=== PATIENT | male | born 1955 | race Caucasian/White ===

== ENCOUNTER 2016-07-10 10:36 | Emergency (ER) | payer OTHER, MEDICARE ==
[~2016-07-10] VITALS: Ht 165.1 cm; Wt 72.6 kg
[~2016-07-10 10:36] MED LIST: ABILIFY30 M1 PO; ANAFRANIL25 MG PO; AUGMENTIN 875 M1 TAB PO; CHILDREN'S ASPI81 M1 PO; CITRUCEL PO; CLOMIPRAMINE HC75 M1 PO; CLONAZEPAM2 M2 PO; COREG12.5 M1 PO; DAILY MULTIPLE1 EACH PO; DEPAKOTE ER500 M1 PO; DIGOXIN125 MCG PO; LEVAQUIN500 MG PO; PREDNISONE20 M1 PO; PRINIVIL5 M1 PO; PROTONIX20 M1 PO; RANITIDINE HCL300 M2 PO; SENNA-TIME S T1 EACH PO; ZOFRAN ODT4 MG PO
[2016-07-10 10:47] VITALS: BP 130/62
--- NOTE | 2016-07-10 10:50 | ED GENERAL ADULT ---
History of Present Illness General Chief Complaint: General Adult Stated Complaint: PT GIVEN WRONG AMOUNT OF MEDS Source: friend (QU[employer]Y SUPERVISOR [employer]) Exam Limitations: no limitations Vital Signs & Intake/Output Vital Signs & Intake/Output Vital Signs Date Time Temp Pulse Resp B/P Pulse O2 O2 Flow FiO2 Ox Delivery Rate 07/10 1103 Room Air 07/10 1047 95.8 75 20 130/62 98 Room Air Allergies Coded Allergies: Haemophilus B polysaccharide conj w/tetanus toxoid (From TRIHIBIT) (UNKNOWN ) diphtheria toxoid,adsorbed (UNKNOWN 08/10/15) diphtheria,pertussis (acellular),te (From TRIHIBIT) (UNKNOWN 08/10/15) tetanus and diphtheria toxoids (From DECAVAC (PF)) (UNKNOWN 08/10/15) tetanus toxoid, adsorbed (UNKNOWN 08/10/15) Reconcile Medications Aripiprazole (Abilify) 30 MG TABLET 1 TAB PO QAM MENTAL HEALTH (Reported) Aspirin (Children's Aspirin) 81 MG TAB.CHEW 1 TAB PO DAILY HEART HEALTH ( Reported) Carvedilol (Coreg) 12.5 MG TABLET 1 TAB PO BID HEART (Reported) Clomipramine (Anafranil 25MG) 25 MG CAPSULE 1 CAP PO TID MENTAL HEALTH ( Reported) CLOMIPRAMINE HCL (Clomipramine HCl) 75 MG CAPSULE 1 CAP PO QPM MENTAL HEALTH (Reported) Clonazepam 2 MG TABLET 1 TAB PO TID ANXIETY (Reported) Clonazepam 2 MG TAB 1 TAB PO DAILY ANXIETY (Reported) Digoxin (Digox) 125 MCG TABLET 1 TAB PO Monday HEART (Reported) Divalproex Sodium (Depakote) 500 MG TCP 2 TAB PO BID PSYCH (Reported) Lisinopril (Prinivil) 5 MG TABLET 0.5 TAB PO DAILY BP (Reported) Methylcellulose (Citrucel) 2 GM/Dose PDR 1 POW PO DAILY CONSTIPATION Multivitamin and Grofysni633 (Daily Multiple Vitamins W/Iron) 1 TAB TAB 1 TAB PO DAILY SUPPLEMENT (Reported) Pantoprazole Sodium (Protonix) 20 MG TABLET.DR 1 TAB PO DAILY GI (Reported) Prednisone 20 MG TABLET 1 TAB PO D ANGIOEDEMA SENNOSIDES/DOCUSATE SODIUM (Senna-Time S Tablet) 50 MG/8.6 MG TAB 2 TAB PO BID CONSTIPATION (Reported) Triage Note: PER RESIDENTAL INSTRUCTOR, PT WAS GIVEN AN EXTRA DOSE OF KLONAZEPAN 2MG LAST PM. SENT FOR EVLAUATION, PMH: MR. TRES MANZANARES Triage Nurses Notes Reviewed? yes Onset: Abrupt Duration: better, resolved prior to arrival, 22 HOURS AGO Timing: remote history Injury Environment: home Severity: mild Severity Numbers: 1 No Modifying Factors: none Associated Symptoms: DENIES HPI: This is a 60-year-old male with history of MR who presents to emergency room for evaluation with his director pharmaceutical after the patient was found this morning to have been given an extra dose of his clonazepam 2 mg yesterday afternoon. The patient takes clonazepam 2 mg 3 times a day, and his director pharmaceutical states that he was medicated with his daily dose at around 1 PM yesterday however is given a additional dose at around 3 PM the same day. His director pharmaceutical states he's been acting his normal self and noticed the air this morning when giving him his telemetry dose at 10 AM. There is been no change in his baseline mental status, the patient has no complaints. There are no modifying factors or associated symptoms otherwise (DANO BANKS) Past History Travel History Traveled to [place] past 21 day No ( ) Medical History Any Pertinent Medical History? see below for history Neurological: MR ARGUELLO: GLENNA CHRONIC GINGIVITIS Cardiovascular: CHF, hypertension, LBBB Respiratory: NONE Gastrointestinal: constipation, GERD Hepatic: NONE Renal: NONE Psychiatric: anxiety, psychosis, AUTISM Blood Disorders: anemia Surgical History Surgical History: non-contributory Psychosocial History Who do you live with Paid Attentent Services at Home None, patient lives at custodial What is your primary language Montene[place]in Tobacco Use: Never used ETOH Use: denies use Family History Hx Contributory? No (DANO BANKS) Review of Systems Review of Systems Constitutional: Reports: see HPI. All Other Systems: Reviewed and Negative Comments Review of systems: See HPI, All other systems negative. Constitutional, no chills no fever, no malaise no weight loss HEENT: No visual changes no sore throat no congestion Cardiovascular: No chest pain , no palpitation Skin, no rashes, no change in skin Respiratory: No dyspnea no cough no sputum GI: No nausea no vomiting, no diarrhea, : No dysuria Muscle skeletal: No joint pain, no joint swelling, no back pain, no neck pain, Neurologic: No numbness no headache Psych: No stress . Heme/endocrine: No bruising no bleeding Immunology: No lymphadenopathy, (DANO BANKS) Physical Exam Physical Exam General Appearance: well developed/nourished, awake Comments: Well-developed well-nourished person in no acute distress HEENT: Normal EENT exam; PERRL, EOMI, HEAD is atraumatic. moist mucous membranes. Neck: Supple, no lymphadenopathy, normal range of motion Back: Nontender, no CVA tenderness. Full range of motion Cardiovascular: Regular rate and rhythms no murmurs Respiratory: No respiratory distress. Patient speaking in full complete sentences. Breath sounds clear to auscultation bilaterally: NO W/R/R Abdomen: Soft, nontender nondistended, no appreciable organomegaly. Normal bowel sounds. No rebound/guarding Extremity: No edema, full range of motion of extremities, normal and equal pulses bilaterally, 5 out of 5 strength noted to bilateral upper and lower extremities Neuro: Alert oriented x3, motor sensory normal, cranial nerves II through XII grossly intact. There were no obvious focal neurologic abnormalities. Skin: No appreciable rash on exposed skin, skin is warm and dry. Psych: Mood and affect is normal, memory and judgment is normal. Core Measures ACS in differential dx? No CVA/TIA Diagnosis: No Severe Sepsis Present: No Septic Shock Present: No (DANO BANKS) Progress Differential Diagnoses I considered the following diagnoses in my evaluation of the patient: Medication administration error, Benzo overdose Plan of Care: Patient is at baseline I advised a follow-up with his private any concerns vitals are stable director pharmaceutical feels comfortable plan I answered all his questions Initial ED EKG: none (DANO BANKS) Departure Departure Time of Disposition: 1054 Disposition: HOME OR SELF CARE Condition: Stable Clinical Impression Primary Impression: Medication administered in error Referrals: ADELINE YANG,NELSON Reyna (PCP/Family) Additional Instructions: Continue giving him his medication as prescribed, follow up with his primary care physician this week, return with any concerns Departure Forms: Customer Survey General Discharge Information (DANO BANKS) PA/SLAT BASKET MAKER Co-Sign Statement Statement: ED Attending supervision documentation- [] I saw and evaluated the patient. I have also reviewed all the pertinent lab results and diagnostic results. I agree with the findings and the plan of care as documented in the PA's/SLAT BASKET MAKER's documentation. [X] I have reviewed the ED Record and agree with the PA's/SLAT BASKET MAKER's documentation. [] Additions or exceptions (if any) to the PAs/SLAT BASKET MAKER's note and plan are summarized below: [] (MARTI YANG,MATTHEW Jacobsen) Critical Care Note Critical Care Note Critical Care Time: non-applicable (FINESSE SÁNCHEZ,DANO)
== END 2016-07-10 11:04 ==
LOC: ERH 10:36 → EDBD 10:40 → ERH 10:40
DX: T42.4X1A Poisoning by benzodiazepines, accidental (unintentional), initial encounter (principal)
CPT/HCPCS: 99282

== ENCOUNTER 2016-08-04 10:45 | Emergency (ER) | payer OTHER, MEDICARE ==
--- NOTE | 2016-08-04 10:56 | ED GENERAL ADULT ---
History of Present Illness General Chief Complaint: Epistaxis/Nasal Foreign Body Stated Complaint: NOSE BLEED Source: home health aides Exam Limitations: unable to give history, confusion, poor historian, physical impairment Vital Signs & Intake/Output Vital Signs & Intake/Output Vital Signs Date Time Temp Pulse Resp B/P Pulse O2 O2 Flow FiO2 Ox Delivery Rate 08/04 1202 97.0 80 18 122/60 99 Room Air Room Air 08/04 1049 96.9 80 16 123/59 99 Room Air Allergies Coded Allergies: Haemophilus B polysaccharide conj w/tetanus toxoid (From TRIHIBIT) (UNKNOWN ) diphtheria toxoid,adsorbed (UNKNOWN 08/10/15) diphtheria,pertussis (acellular),te (From TRIHIBIT) (UNKNOWN 08/10/15) tetanus and diphtheria toxoids (From DECAVAC (PF)) (UNKNOWN 08/10/15) tetanus toxoid, adsorbed (UNKNOWN 08/10/15) Reconcile Medications Aripiprazole (Abilify) 30 MG TABLET 1 TAB PO QAM MENTAL HEALTH (Reported) Aspirin (Children's Aspirin) 81 MG TAB.CHEW 1 TAB PO DAILY HEART HEALTH ( Reported) Carvedilol (Coreg) 12.5 MG TABLET 1 TAB PO BID HEART (Reported) Clomipramine HCl (Anafranil) 25 MG CAPSULE 1 CAP PO TID MENTAL HEALTH ( Reported) Clomipramine HCl 75 MG CAPSULE 1 CAP PO QPM MENTAL HEALTH (Reported) Clonazepam 2 MG TABLET 1 TAB PO TID ANXIETY (Reported) Clonazepam 2 MG TABLET 1 TAB PO DAILY ANXIETY (Reported) Digoxin 125 MCG TABLET 1 TAB PO Monday HEART (Reported) Divalproex Sodium (Depakote ER) 500 MG TAB.ER.24H 2 TAB PO BID MENTAL HEALTH (Reported) Lisinopril (Prinivil) 5 MG TABLET 0.5 TAB PO DAILY BP (Reported) Methylcellulose (Citrucel) 479 GM POWDER 2 GM PO DAILY CONSTIPATION (Reported ) Multivitamin (Daily Multiple Vitamin) 1 EACH TABLET 1 TAB PO DAILY SUPPLEMENT (Reported) Pantoprazole Sodium (Protonix) 20 MG TABLET.DR 1 TAB PO DAILY GI (Reported) Sennosides/Docusate Sodium (Senna-Time S Tablet) 8.6 MG-50 MG TABLET 2 TAB PO BID CONSTIPATION (Reported) Triage Note: PT BROUGHT IN BY AMBULANCE FROM [facility] WITH AID. PT HAS BEEN PUNCHING HIMSELF AT IN THE FACE AND HAD A NOSE BLEED. BLEEDING CONTROLLED AT THIS TIME. PT'S BEHAVIOR AT BASELINE I Triage Nurses Notes Reviewed? yes Onset: Abrupt Duration: hour(s): Timing: recent history HPI: 08/04/16 60-year-old man with a history of cognitive impairment presents to the emergency Department with self-inflicted nasal trauma. The patient repeatedly tends to hit himself in the nose. The onset of the symptoms were abrupt, the duration was just today, the severity was significant as his symptoms required him to come to the emergency department for care. On physical examination he has bilateral nasal septal abrasions, no bony tenderness. Afrin was inserted and bacitracin was put into the nose. He has no other injuries. Past History Travel History Traveled to [place] past 21 day Yes Medical History Any Pertinent Medical History? 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 No Review of Systems Review of Systems Constitutional: Denies: fever. EENTM: Reports: epistaxis. Respiratory: Denies: short of breath. Cardiovascular: Denies: chest pain. GI: Reports: no symptoms. Genitourinary: Reports: no symptoms. Musculoskeletal: Reports: no symptoms. Skin: Reports: no symptoms. Neurological/Psychological: Reports: confusion. Hematologic/Endocrine: Reports: bleeding. Physical Exam Physical Exam General Appearance: awake, anxious, mild distress Head: atraumatic Eyes: Bilateral: abnormal EOM (blind). Ears, Nose, Throat: bilateral nasal septal abrasions, no active bleeding, no septal hematoma Neck: normal inspection, supple Respiratory: no respiratory distress Cardiovascular: regular rate/rhythm Gastrointestinal: non-tender Back: decreased range of motion Extremities: normal inspection Neurologic/Psych: alert Skin: intact, normal color, warm/dry Core Measures ACS in differential dx? No CVA/TIA Diagnosis: No Severe Sepsis Present: No Septic Shock Present: No Progress Differential Diagnoses I considered the following diagnoses in my evaluation of the patient: [Septal hematoma, nasal fracture, nasal abrasion, coagulopathy] Plan of Care: Follow-up with ENT in 7 days. Bacitracin to both nares daily for 3 days. Initial ED EKG: none Departure Departure Disposition: HOME OR SELF CARE Condition: Stable Clinical Impression Primary Impression: Epistaxis Referrals: ADELINE YANG,NELSON Reyna (PCP/Family) Departure Forms: Customer Survey General Discharge Information Critical Care Note Critical Care Note Critical Care Time: non-applicable
[2016-08-04] MEDS ORDERED: CITRUCEL479 GM PO (11:52)
[2016-08-04 12:02] VITALS: BP 122/60
== END 2016-08-04 12:09 ==
LOC: ERH 10:45
DX: R04.0 Epistaxis (principal)

== ENCOUNTER 2017-07-10 11:29 | Emergency (ER) | payer OTHER, MEDICARE ==
[~2017-07-10] VITALS: Ht 160 cm; Wt 59.0 kg
[~2017-07-10 11:29] MED LIST changes: +A AND D OINTM42.5 GM TOP; +ACETAMINOPHEN325 M2 PO; +AMOXICILLIN500 M2 PO; +ATIVAN1 M1 PO; +BACITRACIN28.4 GM TOP; +CALDESENE BABY142 GM TOP; +CITRUCEL479 GM PO; +CLONAZEPAM1 M2 PO; +DEBROX15 ML OTIC; +DIPHENHYDRAMINE25 M4 PO; +DIPHENHYDRAMINE50 M1 PO; +DULCOLAX10 M1 RC; +ENSURE LIQUID237 ML PO; +HYDROCORTISO453.6 G1 TOP; +IBUPROFEN200 M3 PO; +LEVAQUIN500 M1 PO; +LOPERAMIDE2 M2 PO; +LOTRIMIN AF12 GM TOP; +MILK OF MA400 MG/52 PO; +MIRALAX17 G1 PO; +MULTIVITAMINS1 EACH PO; +PERIOGARD473 ML PO; +ROBAFEN-DM SYR118 ML PO; +SUDOGEST30 MG PO; +[UNRECOGNIZED DRUG - OTHER] PO; +[UNRECOGNIZED DRUG - OTHER] TOP
--- NOTE | 2017-07-10 13:10 | ED THROAT/DENTAL COMPLAINT ---
History of Present Illness General Chief Complaint: General Adult Stated Complaint: SWELLING OF LOWER LIP Source: patient Exam Limitations: no limitations Vital Signs & Intake/Output Vital Signs & Intake/Output Vital Signs Date Time Temp Pulse Resp B/P B/P Pulse O2 O2 Flow FiO2 Mean Ox Delivery Rate 07/10 1517 98.3 84 19 122/85 100 Room Air 07/10 1450 78 98 Room Air 07/10 1309 97.1 80 20 92/78 97 Room Air 07/10 1238 Room Air Room Air 07/10 1156 97.0 92 20 94 Room Air Allergies Coded Allergies: Haemophilus B polysaccharide conj w/tetanus toxoid (From TRIYovigoIT) (UNKNOWN ) diphtheria toxoid,adsorbed (UNKNOWN 04/01/17) diphtheria,pertussis (acellular),te (From TRIHIBIT) (UNKNOWN 04/01/17) tetanus and diphtheria toxoids (From DECAVAC (PF)) (UNKNOWN 04/01/17) tetanus toxoid, adsorbed (UNKNOWN 04/01/17) Uncoded Allergies: SURE DEODERANT (PER 04/01/17) Reconcile Medications Acetaminophen 325 MG TABLET 2 TAB PO Q6H PRN PAIN/TEMP 100.5-102 (Reported) Amoxicillin 500 MG CAPSULE 4 CAP PO AD 1 HR PRIOR TO DENTAL APPT. (Reported) Aripiprazole (Abilify) 30 MG TABLET 1 TAB PO DAILY MENTAL HEALTH (Reported) Aspirin (Children's Aspirin) 81 MG TAB.CHEW 1 TAB PO DAILY HEART HEALTH ( Reported) Bacitracin 500 UNIT/GRAM OINT...G. 1 NURA TOP BID PRN WOUND UNTIL DRY/SCABBED (Reported) apply to affected area(s) Bisacodyl (Dulcolax) 10 MG SUPP.RECT 1 SUP RC QPM 4TH DAY NO BM (Reported) Carbamide Peroxide (Debrox) 6.5 % DROPS 6 DROP OTIC BID LEFT EAR (Reported) Carvedilol (Coreg) 12.5 MG TABLET 1 TAB PO BID HEART (Reported) Chlorhexidine Gluconate (Periogard) 0.12 % MOUTHWASH 15 ML PO BID GUMS ( Reported) Clomipramine HCl (Anafranil) 25 MG CAPSULE 1 CAP PO TID MENTAL HEALTH ( Reported) Clomipramine HCl 75 MG CAPSULE 1 CAP PO QHS MENTAL HEALTH (Reported) Clonazepam 1 MG TABLET 1 TAB PO Q6H UNKNOWN (Reported) Clotrimazole (Lotrimin AF) 1 % CREAM..G. 1 NURA TOP BID PRN ITCHING/PEELING/ REDDENED AREA (Reported) apply to affected area(s) Gila Tar (T-Gel) 0.5 % SHAMPOO 1 NURA TOP DAILY SCALP (Reported) Digoxin 125 MCG TABLET 1 TAB PO Monday HEART (Reported) Diphenhydramine HCl 50 MG CAPSULE 1 CAP PO Q4H PRN CONGESTION & SNIFFLES ( Reported) Diphenhydramine HCl 25 MG CAPSULE 1 CAP PO Q4H PRN RUNNY NOSE, SNEEZING ( Reported) diphenhydrAMINE HCl (Benadryl) 25 MG CAP 1 CAP PO TID ALLERGIC REACTION Divalproex Sodium (Depakote ER) 500 MG TAB.ER.24H 2 TAB PO BID MENTAL HEALTH (Reported) Famotidine (Pepcid) 20 MG TABLET 1 TAB PO DAILY ALLERGIC REACTION Guaifenesin/Dextromethorphan (Robafen-Dm Syrup) 100 MG-10 MG/5 ML SYRUP 10 ML PO Q4 PRN COUGH (Reported) Hydrocortisone 1 % CREAM..G. 1 NURA TOP BID PRN ITCHY SMALL RASH/BUG BITES ( Reported) apply to affected area(s) Ibuprofen 200 MG CAPSULE 2 TAB PO Q6H PRN MUSCULAR/JOINT PAIN/TEMP>102 ( Reported) Lactose-Reduced Food (Ensure Liquid) 237 ML LIQUID 1 CAN PO DAILY SUPPLEMENT (Reported) Lisinopril (Prinivil) 5 MG TABLET 1 TAB PO DAILY BP (Reported) Loperamide HCl (Loperamide) 2 MG CAPSULE 2 CAP PO PRN DIARRHEA (Reported) LORazepam (Ativan) 1 MG TAB 1-2 TAB PO AD PRN 1 HR PRIOR TO PROCEDURE ( Reported) MAY REPEAT DOSE IN 1 HR PRN FOR AGITATION Losartan Potassium (Cozaar) 25 MG TABLET 1 TAB PO DAILY HYPERTENSION Magnesium Hydroxide (Milk Of Magnesia) 400 MG/5 ML ORAL.SUSP 30 ML PO QPM 2ND DAY NO BM (Reported) Methylcellulose (Citrucel) 479 GM POWDER 1 TBSP PO BID CONSTIPATION (Reported ) Multivitamin W/Iron, Minerals (Multivitamins With Iron) 1 EACH TAB.CHEW 1 TAB PO DAILY SUPPLEMENT (Reported) Pantoprazole Sodium (Protonix) 20 MG TABLET.DR 1 TAB PO DAILY GI (Reported) Polyethylene Glycol 3350 (Miralax) 17 GRAM POWD.PACK 1 PAC PO QPM 3RD DAY NO BM (Reported) dissolve in water Prednisone 10 MG TABLET 1 TAB PO BID ALLERGIC REACTION Pseudoephedrine HCl (Sudogest) 30 MG TABLET 1 TAB PO Q4H PRN NASAL CONGESTION (Reported) Sennosides/Docusate Sodium (Senna-Time S Tablet) 8.6 MG-50 MG TABLET 2 TAB PO BID CONSTIPATION (Reported) Stannous Fluoride (Gel-Jayesh) 0.4 % GEL..GRAM. 1 NURA PO BID TEETH (Reported) Vits A and D/White Pet/Lanolin (A and D Ointment) 42.5 GM OINT...G. 1 NURA TOP BID CHAFED SKIN (Reported) MIX WITH CALDESCENE, EQUAL PARTS Zinc Oxide/[place] Starch (Caldesene Baby Powder) (Unknown Strength) POWDER 1 NURA TOP BID PRN MINOR RASH (Reported) Triage Note: SWELLING OF THE LOWER LIP TODAY. WENT TO DAY [facility]GRAM AND HE WAS FINE, SHORTLY AFTER [facility] CALLED D/T LOWER LIP SWELLING. Triage Nurses Notes Reviewed? yes Onset: Gradual Duration: getting worse Timing: single episode today Severity: moderate Severity Numbers: 5 HPI: Patient is a 61-year-old male with past medical history of MR hypertension and blindness who presents emergency room with caregiver for concern since 9 AM after medications were administered including lisinopril of lower lip gradually worsening swelling caregiver states that symptoms have occurred in the past patient was seen at ER and was given medications to resolve symptoms. No respiratory distress noted by caregivers or tongue swelling or itching History is limited due to patient's past medical history (Lico Avila) Past History Travel History Traveled to [place] past 21 day No Medical History Any Pertinent Medical History? see below for history Neurological: MR EENT: BLIND CHRONIC GINGIVITIS Cardiovascular: CHF, hypertension, LBBB Respiratory: NONE Gastrointestinal: constipation, GERD Hepatic: NONE Renal: NONE Psychiatric: anxiety, psychosis, AUTISM Blood Disorders: anemia Surgical History Surgical History: non-contributory Psychosocial History Who do you live with Paid Attentent Services at Home None, patient lives at nursing home What is your primary language [place]ian Tobacco Use: Never used ETOH Use: denies use Illicit Drug Use: denies illicit drug use Family History Hx Contributory? No (Lico Avila) Review of Systems Review of Systems Constitutional: Reports: no symptoms. EENTM: Reports: see HPI. Respiratory: Reports: no symptoms. Cardiovascular: Reports: no symptoms. GI: Reports: no symptoms. Genitourinary: Reports: no symptoms. Musculoskeletal: Reports: no symptoms. Skin: Reports: no symptoms. Neurological/Psychological: Reports: no symptoms. Hematologic/Endocrine: Reports: no symptoms. Immunologic/Allergic: Reports: no symptoms. All Other Systems: Reviewed and Negative (Lico Avila) Physical Exam Physical Exam General Appearance: no apparent distress, alert, comfortable Head: atraumatic Eyes: Bilateral: normal appearance. Ears: Bilateral: canal normal, Tympanic normal. Nose: normal inspection Mouth/Throat: LOWER MODERATE TONGUE SWELLING Neck: normal inspection, full range of motion, NO STRIDOR Cardiovascular/Respiratory: normal breath sounds, normal peripheral pulses, regular rate/rhythm, no respiratory distress Neurologic/Psych: awake, alert Skin: intact, normal color, warm/dry Comments: MOUTH- LOWER LIP MODERATE swelling, no tongue swelling no pharyngeal swelling no stridor no respiratory distress Core Measures ACS in differential dx? No Sepsis Present: No Sepsis Focused Exam Completed? No (Lico Avila) Progress Differential Diagnosis: aspirated tooth, carious tooth, epiglottitis, Lud[place]igs angina, meningitis, odontogenic abscess, nafisa-tonsillar abscess, pharyngeal for. body, stomatitis/gingivitis, strep pharyngitis, tooth fracture Plan of Care: Current Medications Sig/Rupal Start time Last Medication Dose Stop Time Status Admin Diphenhydramine HCl 50 MG ONCE ONE 07/10 1330 AC (Benadryl) 07/10 1331 Famotidine 20 MG ONCE ONE 07/10 1330 AC (Pepcid) 07/10 1331 Methylprednisolone 125 MG ONCE ONE 07/10 1330 AC (Solu Medrol) 07/10 1331 Differential diagnoses include anaphylaxis and angioedema Patient on initial examination was in no respiratory distress no stridor on exam O2 saturation 98% room air clear lungs auscultation no concerns of anaphylaxis however due to history of present illness and exam findings there is consideration of lisinopril angioedema IV established 1401- reexamination of the patient patient has significant improvement of lower lip angioedema. Patient clear lungs auscultation 99% room air oxygen saturation no respiratory distress patient resting comfortably discussed with caregiver to discontinue lisinopril and begin losartan 1448- patient again resting comfortably and has almost complete resolution of angioedema 1518- patient upon discharge looks well no apparent distress no stridor oxygen saturation 98% (Lico Avila) Departure Departure Disposition: HOME OR SELF CARE Condition: Stable Clinical Impression Primary Impression: Angioedema Secondary Impressions: Adverse drug effect Referrals: Reny AYNG,Lam Reyna (PCP/Family) Additional Instructions: As discussed please discontinue lisinopril and begin the prescription of LOSARTAN as directed, begin the prescription of prednisone tomorrow as you have received this medication emergency room and begin the prescription of Benadryl and Pepcid for symptoms, if symptoms worsen or Alex develops any new concerning symptom return to emergency room, PRESCRIPTIONS waiting at [facility] pharmacy. Departure Forms: Customer Survey General Discharge Information Prescriptions: Current Visit Scripts Losartan Potassium (Cozaar) 1 TAB PO DAILY #30 TAB diphenhydrAMINE HCl (Benadryl) 1 CAP PO TID #9 CAP Famotidine (Pepcid) 1 TAB PO DAILY #3 TAB Prednisone 1 TAB PO BID #6 TAB (Lico Avila) PA/ENGINEERING SPECIALIST Co-Sign Statement Statement: ED Attending supervision documentation- x I saw and evaluated the patient. I have also reviewed all the pertinent lab results and diagnostic results. I agree with the findings and the plan of care as documented in the PA's/ENGINEERING SPECIALIST's documentation. [] I have reviewed the ED Record and agree with the PA's/ENGINEERING SPECIALIST's documentation. [] Additions or exceptions (if any) to the PAs/ENGINEERING SPECIALIST's note and plan are summarized below: [] (Emi YANG,Bryan)
[2017-07-10] MEDS ORDERED: COZAAR25 M1 PO (14:01)
[2017-07-10] MEDS ORDERED: PREDNISONE10 M2 PO (14:05)
[2017-07-10] MEDS ORDERED: PEPCID20 M1 PO (14:05)
[2017-07-10] MEDS ORDERED: BENADRYL25 MG PO (14:05)
[2017-07-10 15:17] VITALS: BP 122/85
== END 2017-07-10 15:27 ==
LOC: ERH 11:29 → EDBD 11:29 → ERH 11:40
DX: T78.3XXA Angioneurotic edema, initial encounter (principal); T46.4X5A Adverse effect of angiotensin-converting-enzyme inhibitors, initial encounter
CPT/HCPCS: 96374; 96375

== ENCOUNTER 2017-11-04 00:19 | Inpatient (IN) | payer OTHER, MEDICARE ==
[~2017-11-04] VITALS: Ht 167.6 cm; Wt 55.6 kg
[~2017-11-04 00:19] MED LIST changes: +BENADRYL25 MG PO; +COZAAR25 M1 PO; +PEPCID20 M1 PO; +PREDNISONE10 M2 PO
--- NOTE | 2017-11-04 00:49 | ED GENERAL ADULT ---
History of Present Illness General Chief Complaint: General Adult Stated Complaint: "FEVER,CHILLS,TEMP" Source: old records, EMS, STAFF Exam Limitations: clinical condition Vital Signs & Intake/Output Vital Signs & Intake/Output Vital Signs Date Time Temp Pulse Resp B/P B/P Pulse O2 O2 Flow FiO2 Mean Ox Delivery Rate 11/04 0144 100.2 99 16 116/68 98 Nasal 2.0L Cannula 11/04 0105 98 Nasal 2.0L Cannula 11/04 0056 104.9 11/04 0044 104 18 99 Nasal 2.0L Cannula 11/04 0033 104.9 113 20 131/68 100 Non 100% ReBreather Allergies Coded Allergies: Haemophilus B polysaccharide conj w/tetanus toxoid (From [facility]) (UNKNOWN ) diphtheria toxoid,adsorbed (UNKNOWN 04/01/17) diphtheria,pertussis (acellular),te (From [facility]) (UNKNOWN 04/01/17) tetanus and diphtheria toxoids (From [facility] ([facility])) (UNKNOWN 04/01/17) tetanus toxoid, adsorbed (UNKNOWN 04/01/17) Uncoded Allergies: SURE DEODERANT (PER 04/01/17) Reconcile Medications Acetaminophen 325 MG TABLET 2 TAB PO Q6H PRN PAIN/TEMP 100.5-102 (Reported) Amoxicillin 500 MG CAPSULE 4 CAP PO AD 1 HR PRIOR TO DENTAL APPT. (Reported) Aripiprazole (Abilify) 30 MG TABLET 1 TAB PO DAILY MENTAL HEALTH (Reported) Aspirin (Children's Aspirin) 81 MG TAB.CHEW 1 TAB PO DAILY HEART HEALTH ( Reported) Bacitracin 500 UNIT/GRAM OINT...G. 1 NURA TOP BID PRN WOUND UNTIL DRY/SCABBED (Reported) apply to affected area(s) Bisacodyl (Dulcolax) 10 MG SUPP.RECT 1 SUP RC QPM 4TH DAY NO BM (Reported) Carbamide Peroxide (Debrox) 6.5 % DROPS 6 DROP OTIC BID LEFT EAR (Reported) Carvedilol (Coreg) 12.5 MG TABLET 1 TAB PO BID HEART (Reported) Chlorhexidine Gluconate (Periogard) 0.12 % MOUTHWASH 15 ML PO BID GUMS ( Reported) Clomipramine HCl (Anafranil) 25 MG CAPSULE 1 CAP PO TID MENTAL HEALTH ( Reported) Clomipramine HCl 75 MG CAPSULE 1 CAP PO QHS MENTAL HEALTH (Reported) Clonazepam 1 MG TABLET 1 TAB PO Q6H UNKNOWN (Reported) Clotrimazole (Lotrimin AF) 1 % CREAM..G. 1 NURA TOP BID PRN ITCHING/PEELING/ REDDENED AREA (Reported) apply to affected area(s) [place] Tar (T-Gel) 0.5 % SHAMPOO 1 NURA TOP DAILY SCALP (Reported) Digoxin 125 MCG TABLET 1 TAB PO Monday HEART (Reported) Diphenhydramine HCl 50 MG CAPSULE 1 CAP PO Q4H PRN CONGESTION & SNIFFLES ( Reported) Diphenhydramine HCl 25 MG CAPSULE 1 CAP PO Q4H PRN RUNNY NOSE, SNEEZING ( Reported) diphenhydrAMINE HCl (Benadryl) 25 MG CAP 1 CAP PO TID ALLERGIC REACTION Divalproex Sodium (Depakote ER) 500 MG TAB.ER.24H 2 TAB PO BID MENTAL HEALTH (Reported) Famotidine (Pepcid) 20 MG TABLET 1 TAB PO DAILY ALLERGIC REACTION Guaifenesin/Dextromethorphan (Robafen-Dm Syrup) 100 MG-10 MG/5 ML SYRUP 10 ML PO Q4 PRN COUGH (Reported) Hydrocortisone 1 % CREAM..G. 1 NURA TOP BID PRN ITCHY SMALL RASH/BUG BITES ( Reported) apply to affected area(s) Ibuprofen 200 MG CAPSULE 2 TAB PO Q6H PRN MUSCULAR/JOINT PAIN/TEMP>102 ( Reported) Lactose-Reduced Food (Ensure Liquid) 237 ML LIQUID 1 CAN PO DAILY SUPPLEMENT (Reported) Lisinopril (Prinivil) 5 MG TABLET 1 TAB PO DAILY BP (Reported) Loperamide HCl (Loperamide) 2 MG CAPSULE 2 CAP PO PRN DIARRHEA (Reported) LORazepam (Ativan) 1 MG TAB 1-2 TAB PO AD PRN 1 HR PRIOR TO PROCEDURE ( Reported) MAY REPEAT DOSE IN 1 HR PRN FOR AGITATION Losartan Potassium (Cozaar) 25 MG TABLET 1 TAB PO DAILY HYPERTENSION Magnesium Hydroxide (Milk Of Magnesia) 400 MG/5 ML ORAL.SUSP 30 ML PO QPM 2ND DAY NO BM (Reported) Methylcellulose (Citrucel) 479 GM POWDER 1 TBSP PO BID CONSTIPATION (Reported ) Multivitamin W/Iron, Minerals (Multivitamins With Iron) 1 EACH TAB.CHEW 1 TAB PO DAILY SUPPLEMENT (Reported) Pantoprazole Sodium (Protonix) 20 MG TABLET.DR 1 TAB PO DAILY GI (Reported) Polyethylene Glycol 3350 (Miralax) 17 GRAM POWD.PACK 1 PAC PO QPM 3RD DAY NO BM (Reported) dissolve in water Prednisone 10 MG TABLET 1 TAB PO BID ALLERGIC REACTION Pseudoephedrine HCl (Sudogest) 30 MG TABLET 1 TAB PO Q4H PRN NASAL CONGESTION (Reported) Sennosides/Docusate Sodium (Senna-Time S Tablet) 8.6 MG-50 MG TABLET 2 TAB PO BID CONSTIPATION (Reported) Stannous Fluoride (Gel-Jayesh) 0.4 % GEL..GRAM. 1 NURA PO BID TEETH (Reported) Vits A and D/White Pet/Lanolin (A and D Ointment) 42.5 GM OINT...G. 1 NURA TOP BID CHAFED SKIN (Reported) MIX WITH CALDESCENE, EQUAL PARTS Zinc Oxide/[place] Starch (Caldesene Baby Powder) (Unknown Strength) POWDER 1 NURA TOP BID PRN MINOR RASH (Reported) Triage Note: SEE NURSES NOTES Triage Nurses Notes Reviewed? yes Onset: Gradual Duration: hour(s): Timing: recent history Injury Environment: home Severity: moderate Modifying Factors: Improves With: other (better w/ 02 en route). Associated Symptoms: cough HPI: 62 yo gentleman with autism from jail, presents with chills, rigors, fever, dyspnea that began this evening. He was well appearing at approximtely 10pm. An aide checked on him around 11pm when he was noted to also be dyspneic. 911 called. He was hypoxic to 78% on room air, with increased lethargy. Per the staff, he is normally awake, alert, talkative. The aide also noted increased nasal secretions, "and he coughed so much that he even threw up." He is otherwise well. Past History Travel History Traveled to [place] past 21 day No Medical History Any Pertinent Medical History? see below for history Neurological: MR ARGUELLO: BLIND CHRONIC GINGIVITIS Cardiovascular: CHF, hypertension, LBBB Respiratory: NONE Gastrointestinal: constipation, GERD Hepatic: NONE Renal: NONE Psychiatric: anxiety, psychosis, AUTISM Blood Disorders: anemia Surgical History Surgical History: non-contributory Psychosocial History Who do you live with Paid Attentent Services at Home None, patient lives at jail What is your primary language Belarusian Tobacco Use: Never used ETOH Use: denies use Illicit Drug Use: denies illicit drug use Family History Hx Contributory? No Review of Systems Review of Systems Constitutional: Reports: no symptoms. EENTM: Reports: no symptoms. Respiratory: Reports: no symptoms. Cardiovascular: Reports: no symptoms. GI: Reports: no symptoms. Genitourinary: Reports: no symptoms. Musculoskeletal: Reports: no symptoms. Skin: Reports: no symptoms. Neurological/Psychological: Reports: no symptoms. Hematologic/Endocrine: Reports: no symptoms. Immunologic/Allergic: Reports: no symptoms. All Other Systems: Reviewed and Negative Physical Exam Physical Exam General Appearance: well developed/nourished, moderate distress Head: atraumatic, normal appearance Eyes: Bilateral: normal appearance. Ears, Nose, Throat: dry mucosa Neck: normal inspection, supple, full range of motion Respiratory: diminished breath sounds bilaterally Cardiovascular: regular rate/rhythm Gastrointestinal: normal bowel sounds, soft, non-tender, no organomegaly Back: normal inspection, normal range of motion Extremities: normal inspection, normal capillary refill, normal range of motion, no edema Neurologic/Psych: no motor/sensory deficits, lethargic but arousable. Skin: intact, normal color, warm/dry Core Measures ACS in differential dx? No CVA/TIA Diagnosis: No Sepsis Present: Yes Sepsis Focused Exam Completed? Yes ED Sepsis Exam Date of Focused Sepsis Exam: 11/04/17 Time of Focused Sepsis Exam: 0200 Sepsis Cardiac Exam: Tachycardia Sepsis Resp Exam: diminished breath sounds Sepsis Cap Refill Exam: <2 Sec Sepsis Peripheral Pulse Exam: Bounding Sepsis Peripheral Pulse Location: Dorsalis Pedis Sepsis Skin Color Exam: Normal for Ethnicity Skin Temp/Moisture Exam: Hot/Dry Progress Differential Diagnoses I considered the following diagnoses in my evaluation of the patient: sepsis, pneumonia, uti vs other. Plan of Care: Orders Procedure Date/time Status Nothing by Mouth 11/04 B Active LACTIC ACID 11/04 342 Active Saline Lock 11/04 158 Active Misc Message 11/04 158 Active ED Holding Orders 11/04 158 Active Admit to inpatient 11/04 158 Active Vital Signs 11/04 158 Active Code Status 11/04 158 Active ARTERIAL BLOOD GAS (GEN) 11/04 0108 Complete CULTURE,URINE 06/23 0045 Active EKG 11/04 44 Active URINALYSIS 11/05 43 Active BLOOD CULTURE 11/04 42 Active PARTIAL THROMBOPLASTIN TIME 11/04 42 Complete LACTIC ACID 11/04 42 Active COMPREHENSIVE METABOLIC PANEL 11/04 42 Active CBC WITHOUT DIFFERENTIAL 11/04 42 Complete TROPONIN LEVEL 11/05 39 Active DIGOXIN 11/05 39 Active DEPAKOTE LEVEL 11/05 39 Active Laboratory Tests 11/04/17 0120: pH 7.48 H, pCO2 39, pO2 80, HCO3 28, ABG O2 Sat (Measured) 96.0, P-50 (Temp Corrected) N, Carboxyhemoglobin 0.2 L, O2 Concentration % 4L, O2 Delivery Method N/C, Phlebotomy Draw Site RIGHT RADIAL 11/04/1744: Digoxin Cancelled, Valproic Acid Cancelled 11/04/1743: Troponin I Cancelled 11/04/1739: Anion Gap 7, Estimated GFR > 60, BUN/Creatinine Ratio 21.1, Glucose 77, Lactic Acid 1.1, Calcium 9.1, Total Bilirubin 0.4, AST 18, ALT 24, Alkaline Phosphatase 47, Troponin I < 0.01, Total Protein 7.1, Albumin 3.2 L, Globulin 3.9, Albumin/ Globulin Ratio 0.8 L, APTT 28, CBC w Diff NO MAN DIFF REQ, RBC 3.43 L, MCV 96.2 H, MCH 32.0 H, MCHC 33.3, RDW 14.0, MPV 7.6, Gran % 84.6 H, Lymphocytes % 11.0 L, Monocytes % 4.0, Eosinophils % 0.2, Basophils % 0.2, Absolute Granulocytes 4.5, Absolute Lymphocytes 0.6 L, Absolute Monocytes 0.2, Absolute Eosinophils 0, Absolute Basophils 0, Digoxin < 0.4 L, Valproic Acid Pending Microbiology 11/04 44 URINE ROUT: Urine Culture - ORD 11/04 44 BLOOD: Blood Culture - RECD 11/05 39 BLOOD: Blood Culture - RECD Diagnostic Imaging: Viewed by Me: Radiology Read. Discussed w/RAD: Radiology Read. CXR Impression: PATIENT: MATTHEW SKINNER PRESENT AGE: 62 PATIENT ACCOUNT NO: [id number] : 57 LOCATION: [facility] ORDERING PHYSICIAN: Oziel Marion MD SERVICE DATE: 11/04/17 EXAM TYPE: RAD - XRY- PORTABLE CHEST XRAY EXAMINATION: CHEST 1 VIEW CLINICAL INFORMATION: Dyspnea. COMPARISON: April 01, 2017. TECHNIQUE: An AP view of the chest is provided. FINDINGS: The cardiac silhouette is not enlarged. The mediastinal and hilar contours are unremarkable. There is a right lower lobe infiltrate. There is mild left lower lobe atelectasis. There are no pneumothoraces. The osseous structures are stable. IMPRESSION: Right lower lobe infiltrate concerning for pneumonia. Recommendation is for a followup chest series to be obtained following treatment and/or resolution of symptoms to assure resolution of this appearance. DICTATED BY: Osei Vergara MD DATE/TIME DICTATED:11/04/17116 GROUP EXERCISE MANAGER: GRAY DATE/TIME TRANSCRIBED:11/04/17116 CONFIDENTIAL, DO NOT COPY WITHOUT APPROPRIATE AUTHORIZATION. <Electronically signed in Other Vendor System> SIGNED BY: Osei Vergara MD 11/04/17 0122 Initial ED EKG: LBBB, no change from prior Departure Departure Disposition: STILL A PATIENT Condition: Stable Clinical Impression Primary Impression: Pneumonia Secondary Impressions: Sepsis Referrals: Reny YANG,Lam Reyna (PCP/Family) Departure Forms: Customer Survey General Discharge Information Admission Note Spoke With: Shai Munreo MD Documentation of Exam: Documentation of any treatments & extenuating circumstances including Concerns Regarding Discharge (functional status, medication knowledge or non-compliance, living conditions, etc.) that warrant an admission rather than observation: pt with likely aspiration pneumonia vs nosocomial pneumonia... meets criteria for sepsis... he shows improvement after iv fluids and antipyretics.... stable for gen med. Critical Care Note Critical Care Note Critical Care Time: 30-74 min
[2017-11-04 00:57] LABS: ABSOLUTE BASOPHIL COUNT 0 /CUMM (0.0-0.2); ABSOLUTE EOSINOPHIL COUNT 0 /CUMM (0.0-0.7); ABSOLUTE GRANULOCYTE CT 4.5 /CUMM (1.4-6.5); ABSOLUTE LYMPH COUNT 0.6 /CUMM (1.2-3.4); ABSOLUTE MONOCYTE COUNT 0.2 /CUMM (0.10-0.60); BASOPHIL % 0.2 % (0.0-2.0); EOSINOPHIL % 0.2 % (0-5); MEAN CORPUSCULAR HGB CONC 33.3 G/DL (33.0-37.0); MEAN CORPUSCULAR VOLUME 96.2 FL (80.0-94.0); MEAN PLATELET VOLUME 7.6 FL (7.4-10.4); PLATELET COUNT 236 /CUMM (130-400); RED BLOOD CELL CT 3.43 /CUMM (4.70-6.10); WHITE BLOOD CELL COUNT 5.4 /CUMM (4.8-10.8)
[2017-11-04 01:01] LABS: GRANULOCYTE % 84.6 % (42.2-75.2)
[2017-11-04 01:06] LABS: PTT 28 SEC (25-37)
--- NOTE | 2017-11-04 01:22 | RADIOLOGY REPORT ---
EXAMINATION: CHEST 1 VIEW CLINICAL INFORMATION: Dyspnea. COMPARISON: April 01, 2017. TECHNIQUE: An AP view of the chest is provided. FINDINGS: The cardiac silhouette is not enlarged. The mediastinal and hilar contours are unremarkable. There is a right lower lobe infiltrate. There is mild left lower lobe atelectasis. There are no pneumothoraces. The osseous structures are stable. IMPRESSION: Right lower lobe infiltrate concerning for pneumonia. Recommendation is for a followup chest series to be obtained following treatment and/or resolution of symptoms to assure resolution of this appearance.
--- NOTE | 2017-11-04 02:19 | History & Physical ---
Gerry YANG,[facility] 11/04/17 0218: General Information and HPI MD Statement: I have seen and personally examined MATTHEW SKINNER and documented this H&P. The patient is a 62 year old M who presented with a patient stated chief complaint of [low oxygen saturations]. Source of Information: EMS, W10 Exam Limitations: unable to give history History of Present Illness: HPI done by resident. Please see below Past History Travel History Traveled to [facility] past 21 day No Medical History Neurological: MR ARGUELLO: BLIND CHRONIC GINGIVITIS Cardiovascular: CHF, hypertension, LBBB Respiratory: NONE Gastrointestinal: constipation, GERD Hepatic: NONE Renal: NONE Psychiatric: anxiety, psychosis, AUTISM Blood Disorders: anemia Surgical History Surgical History: non-contributory Past Family/Social History Psychosocial History Services at Home: None, patient lives at residential ETOH Use: denies use Illicit Drug Use: denies illicit drug use Functional Ability ADLs Needs Assist: dressing, eating, toileting, bathing. Ambulation: independent IADLs Needs Assist: shopping, housework, finances, food prep, telephone, transportation, medication admin. Core Measures/Misc (01/29) Cerebrovascular Accident CVA/TIA Diagnosis: No Sepsis (View protocol) If YES complete Sepsis Event Note If YES complete Sepsis Event Note Tabitha Osuna 11/04/17 0223: General Information and HPI History of Present Illness: Mr. Johnson is a 62-year-old legally blind (status post enucleation of the right eye) male with past medical history of mental retardation, autism, anxiety disorder, atypical psychosis, right hand contracture,anemia, dysphagia, urinary incontinence, retinal detachment, schizophrenia, dilated cardiomyopathy, CHF, mitral valve regurgitation, hypertension who was brought in by ambulance from residential with chief complaint of fever, chills, cough and shortness of breath associated with hypoxia. It seems that the chills, rigors, fever and dyspnea began the evening on the day of presentation. At around 11pm on the day of presentation - he was noted to be dyspneic, hypoxic with o2 sats of 78% on room air along with increased lethargy , excessive coughing associated with throwing up. In addition , the residential staff reporting that he had a large amount of liquid come out from his nose. Patient was not able to give us much history, most of the history was obtained from W 10 and paperwork from the chart. At the ED, Mr Johnson was found to have a temperature of 104.9, pulse of 113, respiratory rate of 20, blood pressure 131/68, he was saturating 99% on 2 L of nasal cannula. Allergies/Medications Allergies: Coded Allergies: Haemophilus B polysaccharide conj w/tetanus toxoid (From TRIHIBIT) (UNKNOWN ) diphtheria toxoid,adsorbed (UNKNOWN 04/01/17) diphtheria,pertussis (acellular),te (From TRIHIBIT) (UNKNOWN 04/01/17) tetanus and diphtheria toxoids (From DECAVAC (PF)) (UNKNOWN 04/01/17) tetanus toxoid, adsorbed (UNKNOWN 04/01/17) Uncoded Allergies: SURE DEODERANT (PER 04/01/17) Home Med list Acetaminophen 325 MG TABLET 2 TAB PO Q6H PRN PAIN/TEMP 100.5-102 (Reported) Aripiprazole (Abilify) 30 MG TABLET 1 TAB PO DAILY MENTAL HEALTH (Reported) Aspirin (Children's Aspirin) 81 MG TAB.CHEW 1 TAB PO DAILY HEART HEALTH ( Reported) Bacitracin 500 UNIT/GRAM OINT...G. 1 NURA TOP BID PRN WOUND UNTIL DRY/SCABBED (Reported) apply to affected area(s) Bisacodyl (Dulcolax) 10 MG SUPP.RECT 1 SUP RC QPM 4TH DAY NO BM (Reported) Carbamide Peroxide (Debrox) 6.5 % DROPS 6 DROP OTIC BID LEFT EAR (Reported) Carvedilol (Coreg) 12.5 MG TABLET 1 TAB PO BID HEART (Reported) Chlorhexidine Gluconate (Periogard) 0.12 % MOUTHWASH 15 ML PO BID GUMS ( Reported) Clomipramine HCl (Anafranil) 25 MG CAPSULE 1 CAP PO TID MENTAL HEALTH ( Reported) Clonazepam 1 MG TABLET 1 TAB PO Q6H UNKNOWN (Reported) Clotrimazole (Lotrimin AF) 1 % CREAM..G. 1 NURA TOP BID PRN ITCHING/PEELING/ REDDENED AREA (Reported) apply to affected area(s) Early Tar (T-Gel) 0.5 % SHAMPOO 1 NURA TOP DAILY SCALP (Reported) Digoxin 125 MCG TABLET 1 TAB PO Monday HEART (Reported) Divalproex Sodium (Depakote ER) 500 MG TAB.ER.24H 2 TAB PO BID MENTAL HEALTH (Reported) Lactose-Reduced Food (Ensure Liquid) 237 ML LIQUID 1 CAN PO BID NUTRITION ( Reported) Loperamide HCl (Loperamide) 2 MG CAPSULE 2 CAP PO PRN DIARRHEA (Reported) LORazepam (Ativan) 1 MG TAB 1-2 TAB PO AD PRN 1 HR PRIOR TO PROCEDURE ( Reported) MAY REPEAT DOSE IN 1 HR PRN FOR AGITATION Losartan Potassium (Cozaar) 25 MG TABLET 1 TAB PO DAILY HYPERTENSION Magnesium Hydroxide (Milk Of Magnesia) 400 MG/5 ML ORAL.SUSP 30 ML PO QPM 2ND DAY NO BM (Reported) Methylcellulose (Citrucel) 479 GM POWDER 1 TBSP PO BID CONSTIPATION (Reported ) Multivitamin W/Iron, Minerals (Multivitamins With Iron) 1 EACH TAB.CHEW 1 TAB PO DAILY SUPPLEMENT (Reported) Pantoprazole Sodium (Protonix) 20 MG TABLET.DR 1 TAB PO DAILY GI (Reported) Polyethylene Glycol 3350 (Miralax) 17 GRAM POWD.PACK 1 PAC PO QPM 3RD DAY NO BM (Reported) dissolve in water Prednisone 10 MG TABLET 1 TAB PO BID ALLERGIC REACTION Pseudoephedrine HCl (Sudogest) 30 MG TABLET 1 TAB PO Q4H PRN NASAL CONGESTION (Reported) Sennosides/Docusate Sodium (Senna-Time S Tablet) 8.6 MG-50 MG TABLET 2 TAB PO BID CONSTIPATION (Reported) Stannous Fluoride (Gel-Jayesh) 0.4 % GEL..GRAM. 1 NURA PO BID TEETH (Reported) Vits A and D/White Pet/Lanolin (A and D Ointment) 42.5 GM OINT...G. 1 NURA TOP BID CHAFED SKIN (Reported) MIX WITH CALDESCENE, EQUAL PARTS Zinc Oxide/[place] Starch (Caldesene Baby Powder) (Unknown Strength) POWDER 1 NURA TOP BID PRN MINOR RASH (Reported) Compliance With Home Meds: UNKNOWN Past Family/Social History Psychosocial History Where do you live? Retirement Who Do You Live With? gruop home Review of Systems Review of Systems Constitutional: Reports: see HPI. Denies: malaise, weakness. EENTM: Reports: no symptoms. Cardiovascular: Reports: no symptoms. Respiratory: Denies: cough, short of breath, wheezing. GI: Reports: no symptoms. Genitourinary: Reports: no symptoms. Musculoskeletal: Reports: no symptoms. Skin: Reports: no symptoms. Neurological/Psychological: Reports: no symptoms. Hematologic/Endocrine: Reports: no symptoms. Immunologic/Allergic: Reports: no symptoms. All Other Systems: Reviewed and Negative Exam & Diagnostic Data Last 24 Hrs of Vital Signs/I&O Vital Signs Date Time Temp Pulse Resp B/P B/P Pulse O2 O2 Flow FiO2 Mean Ox Delivery Rate 11/04 0202 100.4 11/04 0144 100.2 99 16 116/68 98 Nasal 2.0L Cannula 11/04 0105 98 Nasal 2.0L Cannula 11/04 0056 104.9 11/04 0044 104 18 99 Nasal 2.0L Cannula 11/04 0033 104.9 113 20 131/68 100 Non 100% ReBreather Intake & Output 11/04 0800 11/04 0000 11/03 1600 Intake Total 0 Output Total Balance 0 Intake, Oral 0 Patient 57.606 kg Weight Weight Estimated Measurement Method Physical Exam General Appearance Alert, Cooperative Skin No Rashes, No Breakdown HEENT Atraumatic, PERRLA, EOMI Neck Supple, No JVD, No thryomegaly Cardiovascular Normal S1, Normal S2, systolic murmur+ Lungs Clear to Auscultation, decreased air entry right lower lung Abdomen Normal Bowel Sounds, Soft, No Tenderness Neurological Strength at 5/5 X4 Ext, Normal Tone, Sensation Intact, Cranial Nerves 3-12 NL, Reflexes 2+ Extremities No Clubbing, No Cyanosis, No Edema, Normal Pulses Vascular Normal Pulses Last 24 Hrs of Labs/Jean: Laboratory Tests 11/04/17 0120: pH 7.48 H, pCO2 39, pO2 80, HCO3 28, ABG O2 Sat (Measured) 96.0, P-50 (Temp Corrected) N, Carboxyhemoglobin 0.2 L, O2 Concentration % 4L, O2 Delivery Method N/C, Phlebotomy Draw Site RIGHT RADIAL 11/04/17 0045: Digoxin Cancelled, Valproic Acid Cancelled 11/04/17 0044: Troponin I Cancelled 11/04/17 0040: Anion Gap 7, Estimated GFR > 60, BUN/Creatinine Ratio 21.1, Glucose 77, Lactic Acid 1.1, Calcium 9.1, Total Bilirubin 0.4, AST 18, ALT 24, Alkaline Phosphatase 47, Troponin I < 0.01, Total Protein 7.1, Albumin 3.2 L, Globulin 3.9, Albumin/ Globulin Ratio 0.8 L, APTT 28, CBC w Diff NO MAN DIFF REQ, RBC 3.43 L, MCV 96.2 H, MCH 32.0 H, MCHC 33.3, RDW 14.0, MPV 7.6, Gran % 84.6 H, Lymphocytes % 11.0 L, Monocytes % 4.0, Eosinophils % 0.2, Basophils % 0.2, Absolute Granulocytes 4.5, Absolute Lymphocytes 0.6 L, Absolute Monocytes 0.2, Absolute Eosinophils 0, Absolute Basophils 0, Digoxin < 0.4 L, Valproic Acid 96.2 Microbiology 11/04 44 URINE ROUT: Urine Culture - ORD 11/04 44 BLOOD: Blood Culture - RECD 11/05 39 BLOOD: Blood Culture - RECD Diagnostic Data EKG Results EKG showed sinus tachycardia with a rate of 101, left bundle branch block present on the old EKG, QTC of 509 CXR Results SERVICE DATE: 11/04/17 EXAM TYPE: RAD - XRY-PORTABLE CHEST XRAY EXAMINATION: CHEST 1 VIEW CLINICAL INFORMATION: Dyspnea. COMPARISON: April 01, 2017. TECHNIQUE: An AP view of the chest is provided. FINDINGS: The cardiac silhouette is not enlarged. The mediastinal and hilar contours are unremarkable. There is a right lower lobe infiltrate. There is mild left lower lobe atelectasis. There are no pneumothoraces. The osseous structures are stable. IMPRESSION: Right lower lobe infiltrate concerning for pneumonia. Recommendation is for a followup chest series to be obtained following treatment and/or resolution of symptoms to assure resolution of this appearance. Assessment/Plan Assessment: In summary Mr. Johnson is a 62-year-old male with past medical history of mental retardation, autism, schizophrenia, cardiomyopathy, CHF, mitral valve regurgitation, hypertension, chronic constipation was brought in by ambulance from residential with chief complaints of fever chills and temperature along with increased coughing associated with throwing up, dyspnea and hypoxia up to 78%. Vitals on presentation T-max of 104.9, pulse of 113, respiration of 20, blood pressure of 131/68, he was saturating 100% on nonrebreather. White count of 5.4, H/H of 11.0/33.0, platelets 236. Sodium of 138, potassium of 4.6, BUN/creatinine 19/0.9, glucose of 77, lactic acid 1.1, calcium of 9.1. Chest x-ray showed right lower lobe infiltrate concerning for pneumonia. ABG showed pH of 7.48/PCO2 of 39/PO2 of 80/bicarb of 28. Digoxin level was found to be less than 0.4. Valproic acid levels were fine to be 96.2. Last echocardiogram 06/01/2012 showed mild reduced global left ventricular systolic function, hypokinetic septum, abnormal septal motion consistent with left bundle branch block, left ventricular EF estimated at 40-45% We will admit the patient to general medicine floor for the treatment of following problems #1 Sepsis + Aspiration pneumonia -RLL * Patient received 1 time of IV Vanco and ceftaz while at the emergency department. * Continue to follow blood cultures, urine cultures, sputum cultures. * Continue to monitor intake and output, continue to monitor vitals, continue to maintain oxygen saturation greater than 92%. * TRC evaluation. * Urine Legionella and pneumococcal antigen. * continue to follow cultures * Continue IV Unasyn for suspected aspiration pneumonia of RLL * Continue to keep the patient n.p.o. * Formal swallow evaluation in the morning. * Tylenol for temperature spikes #2 Hypertension. * Continue losartan 25 mg 1 tablet daily, * continue carvedilol 12.5 mg tablet twice daily. #3. Heart failure with reduced ejection fraction. * Last echo in May 2012 showed an EF of 4045%. * Continue digoxin 0.125 mg daily. * Continue aspirin 81 mg daily. * Continue losartan. #4. History of anxiety/atypical psychosis * Continue divalproex thousand milligrams twice daily. * We will check Depakote as well as digoxin levels. * Continue Abilify 30 mg daily. * Continue Klonopin 1 mg 4 times daily. Patient is full code. DVT prophylaxis with Lovenox. We will keep patient n.p.o. for now. Swallow evaluation in the morning. Pain management with Tylenol. Please confirm the CMR in morning with residential As Ranked By This Provider Problem List: 1. Pneumonia Core Measures/Misc (01/29) Acute Coronary Syndrome ACS Diagnosis: No Congestive Heart Failure Congestive Heart Failure Diagnosis No VTE (View Protocol) VTE Risk Factors No risk factors No Mechanical VTE Prophylaxis d/t LowRisk-No Interven Req'd No VTE Pharm Prophylaxis d/t Other Sepsis (View protocol) Sepsis Present: Yes If YES complete Sepsis Event Note If YES complete Sepsis Event Note Resident Review Statement Resident Statement: admitted by resident Ludwig YANG, [facility] 11/04/17 0416: Core Measures/Misc (01/29) Sepsis (View protocol) If YES complete Sepsis Event Note If YES complete Sepsis Event Note Attending MD Review Statement Attending Statement Attending MD Statement: examined this patient, discuss w/resident/PA/SPEECH PATHOLOGY SUPERVISOR, agreed w/resident/PA/SPEECH PATHOLOGY SUPERVISOR, reviewed images, amended to note Attending Assessment/Plan: 62 yo M with h/o autism, schizophrenia, psychosis, mental retardation, cardiomyopathy, congestive heart failure, mitral regurgitation, seizure, is brought in from Retirement for c/o fever, chills, cough and dyspnea. Per EMS, he was hypoxic to 78% on RA with increasing lethargy. Aide reported to ER staff that patient had increased nasal secretions, he was coughing so much that he threw up. History is limited as patient is unable to provide details. Vitals: Tmax 104.9, HR 96-110's, BP 110/60, sats 100% on NRB 100% --> 98% on 2L. Mucosa dry, Chest right sided basilar rhonchi ++, Heart S1S2 regular, systolic murmur+. Labs: no leukocytosis, macrocytic anemia, bicarb 34, lactic acid 1.1, trop neg. AB.48/39/80/28. Digoxin level is low. Valproic acid level 96.2. EKG: sinus tachycardia, LBBB, Qtc 509. CXR: right lower lobe infiltrate concerning for pneumonia. Echo (2013): EF 40-45%. Assessment and plan: 1. Sepsis from aspiration pneumonia of right lower lobe 2. History of autism, schizophrenia, psychosis 3. History of CHF, CMP, mitral valve regurgitation - Admit to General medicine - Aspiration precautions - Panculture - Check urinalysis - Check urine legionella and Strep Ag - IV Unasyn for now - IV hydration, trend lactic acid - NPO, obtain swallow eval - Resume digoxin, depakote and other home meds per W10 DVT ppx Lovenox. Full code.
[2017-11-04 03:48] VITALS: BP 110/60
--- NOTE | 2017-11-04 04:17 | Admission Certification ---
Admission Certification Certification Statement - As attending physician, I certify that at the time of - admission, based on clinical presentation, severity of - symptoms, need for further diagnostic testing and - therapeutic interventions, and risk of adverse outcomes - without in-hospital treatment, in my clinical assessment, - this patient requires an acute hospital stay for a minimum - of two nights or longer. I have also considered psychsocial - factors such as support system, advanced age, financial - issues, cognitive issues, and failed out-patient treatments, - past re-admission history, safety of patient, and lack of - compliance as applicable. Specific rationale supporting this admission is: Sepsis, aspiration pneumonia.
[2017-11-04] MEDS ORDERED: ENSURE LIQUID237 ML PO (06:00)
[2017-11-04 08:40] LABS: ABSOLUTE BASOPHIL COUNT 0 /CUMM (0.0-0.2); ABSOLUTE EOSINOPHIL COUNT 0 /CUMM (0.0-0.7); ABSOLUTE GRANULOCYTE CT 14.1 /CUMM (1.4-6.5); ABSOLUTE MONOCYTE COUNT 1.3 /CUMM (0.10-0.60); BASOPHIL % 0.1 % (0.0-2.0); EOSINOPHIL % 0 % (0-5); GRANULOCYTE % 85.9 % (42.2-75.2); MEAN CORPUSCULAR HGB 31.6 PG (27.0-31.0); MEAN CORPUSCULAR HGB CONC 32.8 G/DL (33.0-37.0); MEAN CORPUSCULAR VOLUME 96.3 FL (80.0-94.0); MEAN PLATELET VOLUME 7.8 FL (7.4-10.4); PLATELET COUNT 185 /CUMM (130-400)
[2017-11-04 09:40] LABS: WHITE BLOOD CELL COUNT 16.4 /CUMM (4.8-10.8)
--- NOTE | 2017-11-04 12:06 | PN- Att Addend ---
Attending Addendum Attending Brief Note Patient seen and examined. Resting comfortably not in acute distress. Unable to obtain any reasonable history from the patient due to his underlying cognitive deficit. No issues overnight reported by nursing staff. Vital Signs Date Time Temp Pulse Resp B/P B/P Pulse O2 O2 Flow FiO2 Mean Ox Delivery Rate 11/04 0907 97 110/60 11/04 0907 97 110/60 11/04 0612 98.6 20 92 11/04 0351 Nasal 2.0L Cannula 11/04 0348 98.5 97 20 110/60 96 11/04 0231 101.2 96 20 114/55 100 Nasal 2.0L Cannula 11/04 0202 100.4 11/04 0144 100.2 99 16 116/68 98 Nasal 2.0L Cannula 11/04 0105 98 Nasal 2.0L Cannula 11/04 0056 104.9 11/04 0044 104 18 99 Nasal 2.0L Cannula 11/04 0033 104.9 113 20 131/68 100 Non 100% ReBreather General appearance: Lean. Not in acute distress. HEENT: Anicteric, no pallor, pupils equal and reactive. Neck: Supple with no jugular venous distention. Heart: S1-S2 regular with 2/6 systolic murmur Lungs: Adequate and symmetric air entry bilaterally with no added sounds. Abdomen: Nondistended with normal bowel sounds. Soft, nontender with no palpable masses. Extremities: No pedal edema. No cyanosis. Skin: Intact Laboratory Tests 11/04/17 0730: Anion Gap 6, Estimated GFR > 60, BUN/Creatinine Ratio 25.0, CBC w Diff MAN DIFF ORDERED, RBC 2.90 L, MCV 96.3 H, MCH 31.6 H, MCHC 32.8 L, RDW 14.0, MPV 7.8, Gran % 85.9 H, Lymphocytes % 5.9 L, Monocytes % 8.1, Eosinophils % 0, Basophils % 0.1, Absolute Granulocytes 14.1 H, Segmented Neutrophils 56, Band Neutrophils 33 H, Absolute Lymphocytes 1.0 L, Lymphocytes 7 L, Monocytes 4, Absolute Monocytes 1.3 H, Absolute Eosinophils 0, Absolute Basophils 0, Platelet Estimate VERIFIED BY SMEAR, Basophilic Stippling 1+ 11/04/17 0600: Urine Color YEL, Urine Clarity CLEAR, Urine pH 7.5, Ur Specific [place] 1.020, Urine Protein NEG, Urine Ketones TRACE H, Urine Nitrite NEG, Urine Bilirubin NEG, Urine Urobilinogen 1.0, Ur Leukocyte Esterase NEG, Ur Microscopic SEDIMENT EXAMINED, Urine RBC 10-15 H, Ur Epithelial Cells MOD H, Urine Bacteria RARE H , Hyaline Casts RARE H, Urine Mucus FEW, Urine Hemoglobin TRACE-INTACT H, Urine Glucose NEG 11/04/17 0343: Lactic Acid Cancelled 11/04/17 0120: pH 7.48 H, pCO2 39, pO2 80, HCO3 28, ABG O2 Sat (Measured) 96.0, P-50 (Temp Corrected) N, Carboxyhemoglobin 0.2 L, O2 Concentration % 4L, O2 Delivery Method N/C, Phlebotomy Draw Site RIGHT RADIAL 11/04/17 004: Digoxin Cancelled, Valproic Acid Cancelled 11/04/17 0044: Troponin I Cancelled 11/04/17 0040: Anion Gap 7, Estimated GFR > 60, BUN/Creatinine Ratio 21.1, Glucose 77, Lactic Acid 1.1, Calcium 9.1, Total Bilirubin 0.4, AST 18, ALT 24, Alkaline Phosphatase 47, Troponin I < 0.01, Total Protein 7.1, Albumin 3.2 L, Globulin 3.9, Albumin/ Globulin Ratio 0.8 L, APTT 28, CBC w Diff NO MAN DIFF REQ, RBC 3.43 L, MCV 96.2 H, MCH 32.0 H, MCHC 33.3, RDW 14.0, MPV 7.6, Gran % 84.6 H, Lymphocytes % 11.0 L, Monocytes % 4.0, Eosinophils % 0.2, Basophils % 0.2, Absolute Granulocytes 4.5, Absolute Lymphocytes 0.6 L, Absolute Monocytes 0.2, Absolute Eosinophils 0, Absolute Basophils 0, Digoxin < 0.4 L, Valproic Acid 96.2 Microbiology 11/04 599 URINE ROUT: Legionella Antigen - COMP 11/04 599 URINE ROUT: Streptococcus pneumoniae Antigen (M - COMP 11/04 599 URINE ROUT: Urine Culture - RECD 11/04 44 BLOOD: Blood Culture - RECD 11/05 39 BLOOD: Blood Culture - RECD Problems: 1. Acute hypoxic respiratory failure secondary to pneumonia; likely secondary to aspiration 2. Mental retardation, schizophrenia with psychosis. 3. Cardiomyopathy 4. Seizure disorder Plan: -Continue current antibiotic course. -N.p.o. pending swallow evaluation. -Wean off oxygen as tolerated. -Maintain aspiration precautions at all times. -Continue his routine cardiac and psychiatric regimen.
[2017-11-04 13:48] VITALS: BP 118/80
[2017-11-04 20:09] VITALS: BP 114/57
[2017-11-05 07:20] VITALS: BP 116/58
--- NOTE | 2017-11-05 09:35 | PN- Housestaff ---
Phillip YANG,Dimitri 11/05/1735: Subjective Follow-up For: Acute hypoxemic respiratory failure aspiration pneumonia sepsis Subjective: afebrile after antibiotics, tmax 104.9 yesterday continues to cough with eating, had swallow evaluation yesterday on puree/thin liquids Review of Systems Constitutional: Reports: see HPI. Objective Last 24 Hrs of Vital Signs/I&O Vital Signs Date Time Temp Pulse Resp B/P B/P Pulse O2 O2 Flow FiO2 Mean Ox Delivery Rate 11/05 922 72 116/58 11/05 922 72 116/58 11/05 0800 95 Nasal 2.0L Cannula 11/05 0720 98.2 72 18 116/58 97 11/05 0000 Nasal 2.0L Cannula 11/04 2008 77 114/57 11/04 2008 98.5 77 18 11457 98 Nasal 2.0L Cannula 11/04 1348 98.2 76 20 118/80 95 Room Air Intake & Output 11/05 1600 11/05 0800 11/05 0000 Intake Total Output Total 150 Balance -150 Output, Urine 150 Patient 57.379 kg Weight Physical Exam General Appearance: Alert, Cooperative, No Acute Distress, on 2L NC Cardiovascular: Regular Rate, Normal S1, Normal S2, No Murmurs Lungs: bibasilar rhonchi Abdomen: Normal Bowel Sounds, Soft, No Tenderness, No Masses Extremities: No Clubbing, No Cyanosis, No Edema, Normal Pulses Current Medications: Current Medications Sig/Rupal Start time Last Medication Dose Route Stop Time Status Admin Ampicillin Sodium/ 1,500 MG Q6 11/04 599 AC 11/05 Sulbactam Sodium IV 0647 Sodium Chloride 100 ML Aripiprazole 30 MG DAILY 11/04 899 AC 11/05 PO 920 Aspirin 81 MG DAILY 11/04 899 AC 11/05 PO 920 Carvedilol 12.5 MG BID 11/04 899 AC 11/05 PO 922 Clonazepam 1 MG Q6H 11/04 0615 AC 11/05 PO 11/1147 Digoxin 0.125 MG 11/06 09 AC PO Divalproex Sodium 1,000 MG BID 11/05 0836 AC PO Divalproex Sodium 1,000 MG ONCE ONE 11/04 2259 DC 11/04 PO 11/04 2300 2327 Divalproex Sodium 1,000 MG BID 11/04 899 DC 11/04 PO 09 Enoxaparin Sodium 40 MG DAILY 11/04 09 AC 11/05 SC 0923 Losartan Potassium 25 MG DAILY 11/04 899 AC 11/05 PO 09 Omeprazole 20 MG DAILY AC 11/04 07 AC 11/05 PO 06 Assessment/Plan Assessment: 62-year-old male with past medical history of mental retardation, autism, schizophrenia, cardiomyopathy, CHF, mitral valve regurgitation, hypertension, chronic constipation was brought in by ambulance from half-way with chief complaints of fever chills and temperature along with increased coughing associated with throwing up, dyspnea and hypoxia up to 78%. Acute hypoxemic respiratory failure and sepsis secondary to Aspiration PNA: Fever, tachycardia, leukocytosis with bandemia, and RLL infiltrate on chest x- ray with cough and hypoxia to 78% on room air Received Vanco/Ceftaz in the ED. Last CBC had significant leukocytosis with bandemia, repeat tomorrow Follow up cultures-pending Titrate oxygen to an SpO2 > 92% TRC evaluation Urine Legionella and pneumococcal antigen negative Continue IV Unasyn 1.5g q6h Repeat swallow evaluation Chest x-ray showed light lower lobe infiltrate ABG 7.48/39/80/28 on 4L oxygen HFrEF/HTN Last echo in May 2012 showed mild reduced global left ventricular systolic function, hypokinetic septum, abnormal septal motion consistent with left bundle branch block, left ventricular EF estimated at 40-45% Continue digoxin 0.125 mg daily, coreg, aspirin, and losartan Digoxin level < 0.4 Psych: Continue divalproex 1000mg bid, was taking XR at home Depakote levels 90 Continue Abilify 30mg and Klonopin 1mg QID Puree/Thin regular diet pending swallow reevaluation DVT ppx-lovenox sc Full code Problem List: 1. Sepsis 2. Pneumonia Pain Ratin Pain Location: n/a Pain Goal: Pain 4 or less Pain Plan: prn Tomorrow's Labs & Rationales: cbc, bep Rita YANG,[place] 11/05/17 1050: Attending MD Review Statement Attending Statement Attending MD Statement: examined this patient, discuss w/resident/PA/REPORTING CONSULTANT, agreed w/resident/PA/REPORTING CONSULTANT, reviewed EMR data (avail), discussed with nursing, amended to note Attending Assessment/Plan: Patient seen and examined. Resting comfortably not in any acute distress. No issues overnight reported by nursing staff. Afebrile overnight. Unable to obtain any similar history from patient due to underlying cognitive deficit. On examination not in any respiratory distress. Adequate entry bilaterally with no significant added sounds. Abdomen soft and nontender. No peripheral edema. Problems: 1. Acute hypoxic respiratory failure secondary to pneumonia; likely secondary to aspiration 2. Mental retardation, schizophrenia with psychosis. 3. Cardiomyopathy 4. Seizure disorder Plan: -Continue current antibiotic regimen. -Wean off oxygen supplementation as tolerated. -Repeat CBCs tomorrow to ensure white cell count is improving. Also monitor hemoglobin as levels dropped slightly compared to presentation. -Check stool guaiac. -Continue assisted feeding. -Anticipate discharge tomorrow if remains clinically stable.
[2017-11-05 14:48] VITALS: BP 128/80
[2017-11-05 21:22] VITALS: BP 120/66
[2017-11-06 06:38] VITALS: BP 122/68
--- NOTE | 2017-11-06 08:09 | PN- Housestaff ---
Donnell YANG,Stephanie 11/06/17 0809: Subjective Follow-up For: Sepsis 2/2 aspiration pneumonia Vomitting Subjective: Patient was seen and examined today. Patient has intellectual disability at baseline will answer questions occasionally. Denies any pain at this time. Patient this morning vomitted reportedly 5 minutes after breakfast. Nursing staff report that patient was fed slowly and had no problem during feeding. Spoke to patient's system developer associate manager, patient has been periodically having episodes of emesis in the morning after breakfast. This does not apparently occur with lunch or dinner. Per system developer associate manager patient has been on a bowel regimen and generally does not go more than two days without a bowel movement including over the past 2 weeks. Patient's last bm was two days prior. No acute events overnight. Review of Systems Constitutional: Reports: see HPI. Objective Last 24 Hrs of Vital Signs/I&O Vital Signs Date Time Temp Pulse Resp B/P B/P Pulse O2 O2 Flow FiO2 Mean Ox Delivery Rate 11/06 1333 98.8 80 20 142/78 94 Nasal 2.0L Cannula 11/06 0923 68 150/78 11/06 0730 95 Nasal 2.0L Cannula 11/06 0638 97.8 82 20 122/68 95 11/06 0000 Nasal 2.0L Cannula 11/05 2211 88 120/66 11/05 2122 98.4 83 120/66 97 Room Air Intake & Output 11/06 1600 11/06 0800 11/06 0000 Intake Total 1140 1200 600 Output Total 200 Balance 940 1200 600 Intake, IV 100 240 120 Intake, Oral 1040 960 480 Number 1 0 0 Bowel Movements Output, 200 Emesis Patient 129 lb 129 lb Weight Weight Bed scale Measurement Method Physical Exam General Appearance: Alert, No Acute Distress HEENT: Atraumatic, Mucous Membr. moist/pink Cardiovascular: Regular Rate, Normal S1, Normal S2 Lungs: rhonchi heard over both lower lung le Abdomen: Normal Bowel Sounds, Soft, No Tenderness Neurological: talking to himself, occasionally answers questions Current Medications: Current Medications Sig/Rupal Start time Last Medication Dose Route Stop Time Status Admin Ampicillin Sodium/ 1,500 MG Q6 11/04 599 AC 11/06 Sulbactam Sodium IV 1811 Sodium Chloride 100 ML Aripiprazole 30 MG DAILY 11/04 899 AC 11/06 PO 923 Aspirin 81 MG DAILY 11/04 899 AC 11/06 PO 0924 Bisacodyl 10 MG DAILY PRN 11/06 0915 AC 11/06 [place] 0923 Bisacodyl 5 MG DAILY 11/06 914 AC PO Carvedilol 12.5 MG BID 11/04 899 AC 11/06 PO 0923 Clonazepam 1 MG Q6H 11/04 614 AC 11/06 PO 11/11 0614 1811 Digoxin 0.125 MG 11/06 AC 11/06 PO 09 Divalproex Sodium 1,000 MG BID 11/05 0936 AC 11/06 PO 0923 Enoxaparin Sodium 40 MG DAILY 11/04 899 AC 11/06 SC 0924 Losartan Potassium 25 MG DAILY 11/04 899 AC 11/06 PO 0924 Omeprazole 20 MG DAILY AC 11/04 07 AC 11/06 PO 0647 Patient Medication 1 ED ONE ONE 11/06 929 DC 11/06 Teaching ED 11/06 Polyethylene Glycol 17 GM DAILY 11/06 913 AC 11/06 PO 0923 Last 24 Hrs of Lab/Jean Results Last 24 Hrs of Labs/Mics: Laboratory Tests 11/06/17720: CBC w Diff NO MAN DIFF REQ, RBC 2.88 L, MCV 96.8 H, MCH 31.6 H, MCHC 32.6 L, RDW 14.3, MPV 7.8, Gran % 70.4, Lymphocytes % 21.6, Monocytes % 7.3, Eosinophils % 0.4, Basophils % 0.3, Absolute Granulocytes 5.6, Absolute Lymphocytes 1.7, Absolute Monocytes 0.6, Absolute Eosinophils 0, Absolute Basophils 0 Assessment/Plan Assessment: 62-year-old male with past medical history of mental retardation, autism, schizophrenia, cardiomyopathy, CHF, mitral valve regurgitation, hypertension, chronic constipation [facility] with chief complaints of fever chills and temperature along with increased coughing associated with throwing up, dyspnea and hypoxia up to 78%. Assessment: Patient today remains afebrile with a normal white blood cell count on IV Unasyn for aspiration pneumonia. Patient this morning had an episode of nonbloody emesis of stomach contents shortly after breakfast. This has been apparently an ongoing problem over the last several weeks. Patient has been previously worked up by GI in the past. Patient currently is not complaining of abdominal pain. LFTs done today within normal limits. Patient's last bowel movement was 2 days prior. This however does not appear to be secondary to constipation as per the system developer associate manager it occurs even when he's having bowel movements. From the records patient has apparently had a Shatzki ring seen on EGD which may be the cause of patient's vomitting. Patient is currently admitted to [facility] for the followin. Acute hypoxemic respiratory failure and sepsis secondary to Aspiration PNA: - Fever, tachycardia, leukocytosis with bandemia, and RLL infiltrate on chest x- ray with cough and hypoxia to 78% on room air. Received Vanco/Ceftaz in the ED. Urine Legionella and pneumococcal antigen negative. Chest x-ray showed light lower lobe infiltrate. ABG 7.48/39/80/28 on 4L oxygen * Follow up cultures-pending * Currently at 2L NC, titrate oxygen to an SpO2 > 92% * TRC/Neb treatments * Continue IV Unasyn 1.5g q6h 2. Vomitting Etiology unclear at this time. Possibly secondary to Schatzki's ring. Other causes to consider is related to medications, gastroparesis, gastric outlet obstruction, rumination syndrome. Patient is an unreliable and poor historian which makes it difficult to ascertain if he has any nausea or pain associated with vomitting. Patient has been workedup in the past with the only finding of a Schatzki's ring on endoscopy. * Barium swallow today * GI consulted * Feed slowly * Continue PPI 3. HFrEF/HTN Last echo in May 2012 showed mild reduced global left ventricular systolic function, hypokinetic septum, abnormal septal motion consistent with left bundle branch block, left ventricular EF estimated at 40-45% Continue digoxin 0.125 mg daily, coreg, aspirin, and losartan Digoxin level < 0.4 4. Psych: Continue divalproex 1000mg bid, was taking XR at home Depakote levels 90 Continue Abilify 30mg and Klonopin 1mg QID Puree/Thin regular diet DVT ppx-lovenox sc Full code Problem List: 1. Aspiration pneumonia Pain Ratin Pain Location: n/a Pain Goal: Remain pain free Pain Plan: prn Tomorrow's Labs & Rationales: cbc bep Rita YANG,Zelalem 11/06/17 1450: Attending MD Review Statement Attending Statement Attending MD Statement: examined this patient, discuss w/resident/PA/MILITARY NURSE, agreed w/resident/PA/MILITARY NURSE, reviewed EMR data (avail), discussed with nursing, discussed with case mgmt, amended to note Attending Assessment/Plan: Patient seen and examined. Resting comfortably not in any acute distress. No issues overnight reported by nursing staff. He was scheduled for discharge this morning however he apparently vomited his meal sometime after breakfast. He is alert. Due to his cognitive impairment is not able to provide any significant history. On examination he has mild crackles left lung base. Abdomen is nondistended soft and nontender with normal bowel sounds. Barium swallow done last year showed diffuse intermittent esophageal spasm leading to delayed passage of barium into the stomach. He had a subtle Schatzki ring seen at the GE junction with impedance of a barium tablet at this level. Recommend evaluation by the GI service.
--- NOTE | 2017-11-06 08:27 | Patient Discharge Instructions ---
Discharge Instructions General Discharge Information You were seen/treated for: ASPIRATION PNUEMONIA VOMITTING, GERD You had these procedures: Barium Swallow Special Instructions: 1. Please follow up with your PCP within one week of discharge. 2. Please take medications as prescribed: New Medications/Med Changes: - Augmentin - Pantoprazole - Ranitidine Diet Continue normal diet: No Recommended Diet: puree diet Acute Coronary Syndrome Inclusion Criteria At DC or during hospital stay patient has or had the following: ACS DIAGNOSIS No Discharge Core Measures Meds if any: Prescribed or Continued at Discharge Meds if any: NOT Prescribed or Continued at Discharge Congestive Heart Failure Inclusion Criteria At DC or during hospital stay patient has or had the following: CHF DIAGNOSIS No Discharge Core Measures Meds if any: Prescribed or Continued at Discharge Meds if any: NOT Prescribed or Continued at Discharge Cerebrovascular accident Inclusion Criteria At DC or during hospital stay patient has or had the following: CVA/TIA Diagnosis No Discharge Core Measures Meds if any: Prescribed or Continued at Discharge Meds if any: NOT Prescribed or Continued at Discharge Venous thromboembolism Inclusion Criteria VTE Diagnosis No VTE Type NONE VTE Confirmed by (Test) NONE Discharge Core Measures - Per Current guidelines, there needs to be overlap - treatment for the first 5 days of Warfarin therapy. - If discharged on Warfarin prior to 5 days of - overlap therapy, the patient will need to be - assessed for post discharge needs including - *Post discharge parental anticoagulation - *Warfarin and/or parental anticoagulation education - *Follow up date to check INR post discharge At least 5 days overlap therapy as Inpatient No Meds if any: Prescribed or Continued at Discharge Note: Overlap Therapy is Warfarin and Anticoagulant Meds if any: NOT Prescribed or Continued at Discharge
[2017-11-06] MEDS ORDERED: AUGMENTIN 875-1 EACH PO (08:29)
[2017-11-06 09:08] LABS: ABSOLUTE BASOPHIL COUNT 0 /CUMM (0.0-0.2); ABSOLUTE EOSINOPHIL COUNT 0 /CUMM (0.0-0.7); ABSOLUTE GRANULOCYTE CT 5.6 /CUMM (1.4-6.5); ABSOLUTE LYMPH COUNT 1.7 /CUMM (1.2-3.4); ABSOLUTE MONOCYTE COUNT 0.6 /CUMM (0.10-0.60); BASOPHIL % 0.3 % (0.0-2.0); EOSINOPHIL % 0.4 % (0-5)
[2017-11-06 09:45] LABS: GRANULOCYTE % 70.4 % (42.2-75.2); HEMATOCRIT 27.9 % (42-52); MEAN CORPUSCULAR HGB 31.6 PG (27.0-31.0); MEAN CORPUSCULAR HGB CONC 32.6 G/DL (33.0-37.0); MEAN CORPUSCULAR VOLUME 96.8 FL (80.0-94.0); MEAN PLATELET VOLUME 7.8 FL (7.4-10.4); PLATELET COUNT 194 /CUMM (130-400); RBC DISTRIBUTION WIDTH 14.3 % (11.5-14.5); RED BLOOD CELL CT 2.88 /CUMM (4.70-6.10)
[2017-11-06 13:33] VITALS: BP 142/78
--- NOTE | 2017-11-06 16:17 | RADIOLOGY REPORT ---
EXAMINATION: XR BARIUM SWALLOW/ESOPHAGRAM CLINICAL INFORMATION: Vomiting. Follow-up Schatzki's ring. COMPARISON: Esophagram from 12/29/2016. TECHNIQUE: Esophagram was technically challenging due to incomplete cooperation from the patient. Also, patient was unable to stand on the examination table. The patient swallowed thin barium contrast in a supine, semiupright position. Multiple spot fluoroscopy images were obtained. FLUOROSCOPY TIME: 1 minute, 35 seconds NUMBER OF IMAGES: Four series of images were acquired. FINDINGS: The oropharyngeal phase of swallowing was normal. No evidence of tracheal aspiration. The esophageal motility was suboptimally evaluated due to patient's supine positioning. There appeared to be intermittent spasm and intermittent relaxation at the level of the esophagogastric junction causing intermittent emptying of the esophagus. The esophagus was mildly dilated, as noted on 12/29/2016. However, no evidence of esophageal mass, stricture, ulceration, hiatal hernia or Schatzki's ring. No episodes of gastroesophageal reflux occurred. IMPRESSION: 1. No evidence of hiatal hernia, Schatzki's ring or stricture. 2. The esophageal motility was suboptimally evaluated due to patient's inability to fully cooperate with the test. Images were acquired in a semiupright, supine position. As discussed on 12/29/2016, there appeared to be intermittent relaxation of the lower esophageal sphincter (possible intermittent esophageal spasm).
[2017-11-06 22:00] VITALS: BP 122/75
[2017-11-07 06:38] VITALS: BP 124/70
--- NOTE | 2017-11-07 07:16 | PN- Housestaff ---
Donnell YANG,Stephanie 11/07/17 0715: Subjective Follow-up For: Sepsis 2/2 aspiration pneumonia Vomitting Subjective: Patient was seen and examined today. No episodes of emesis overnight since breakfast day before. Patient this morning was able to tolerate pills. Patient had breakfast. After which he had a small amount of emesis. Patient has no complaints today. Patient's program director group work reported that he has a habit of ingesting foreign objects. Does not believe that he has recently but cannot be sure. Imaging thus far has not revealed radioopaque objects. No acute events overnight. Review of Systems Constitutional: Reports: see HPI. Objective Last 24 Hrs of Vital Signs/I&O Vital Signs Date Time Temp Pulse Resp B/P B/P Pulse O2 O2 Flow FiO2 Mean Ox Delivery Rate 11/07 1516 95 Room Air 11/07 1416 97.6 78 18 122/72 97 Room Air 11/07 0823 83 124/70 11/07 0823 83 124/70 11/07 0800 94 Nasal 2.0L Cannula 11/07 0638 97.4 83 16 124/70 94 Nasal 2.0L Cannula 11/07 0000 Nasal 2.0L Cannula 11/06 2219 84 122/75 11/06 2200 98.3 84 16 122/75 97 Room Air Intake & Output 11/07 1600 11/07 0800 11/07 0000 Intake Total 340 260 300 Output Total Balance 340 260 300 Intake, IV 100 260 Intake, Oral 240 300 Number 1 Bowel Movements Patient 130 lb Weight Physical Exam General Appearance: Alert, Cooperative, No Acute Distress HEENT: Atraumatic, Mucous Membr. moist/pink Cardiovascular: Regular Rate, Normal S1, Normal S2 Lungs: bibasilar crackles Abdomen: Normal Bowel Sounds, Soft, No Tenderness Neurological: spontaneously talks, occasionally responds to questions, rocking back and forth Extremities: No Clubbing, No Cyanosis, No Edema, Normal Pulses, No Tenderness/ Swelling Current Medications: Current Medications Sig/Rupal Start time Last Medication Dose Route Stop Time Status Admin Ampicillin Sodium/ 1,500 MG Q6 11/04 599 AC 11/07 Sulbactam Sodium IV 1133 Sodium Chloride 100 ML Aripiprazole 30 MG DAILY 11/04 899 AC 11/07 PO 0823 Aspirin 81 MG DAILY 11/04 899 AC 11/07 PO 0823 Bisacodyl 10 MG DAILY PRN 11/06 0915 AC 11/06 [place] 0923 Bisacodyl 5 MG DAILY 11/06 0915 AC 11/07 PO 0823 Carvedilol 12.5 MG BID 11/04 09 AC 11/07 PO 0823 Clonazepam 1 MG Q6H 11/04 0615 AC 11/07 PO 11/11 0614 1133 Digoxin 0.125 MG 11/06 09 AC 11/06 PO 0924 Divalproex Sodium 1,000 MG BID 11/05 0936 AC 11/07 PO 0822 Enoxaparin Sodium 40 MG DAILY 11/04 09 AC 11/07 SC 0823 Losartan Potassium 25 MG DAILY 11/04 09 AC 11/07 PO 0823 Omeprazole 20 MG DAILY AC 11/04 07 AC 11/07 PO 0649 Patient Medication 1 ED ONE ONE 11/07 1530 ND Teaching ED 11/07 1531 Polyethylene Glycol 17 GM DAILY 11/06 0814 AC 11/07 PO 0823 Last 24 Hrs of Lab/Jean Results Last 24 Hrs of Labs/Mics: Laboratory Tests 11/07/17 0720: Anion Gap 5, Estimated GFR > 60, BUN/Creatinine Ratio 10.0, CBC w Diff NO MAN DIFF REQ, RBC 3.06 L, MCV 96.8 H, MCH 31.5 H, MCHC 32.5 L, RDW 14.2, MPV 7.6 , Gran % 64.3, Lymphocytes % 27.0, Monocytes % 7.6, Eosinophils % 0.8, Basophils % 0.3, Absolute Granulocytes 3.9, Absolute Lymphocytes 1.6, Absolute Monocytes 0.5, Absolute Eosinophils 0, Absolute Basophils 0 Assessment/Plan Assessment: 62-year-old male with past medical history of mental retardation, autism, schizophrenia, cardiomyopathy, CHF, mitral valve regurgitation, hypertension, chronic constipation was brought in by ambulance from [facility] living with chief complaints of fever chills and temperature along with increased coughing associated with throwing up, dyspnea and hypoxia up to 78%. Patient is currently admitted to [facility] for the followin. Acute hypoxemic respiratory failure and sepsis secondary to Aspiration PNA: - Fever, tachycardia, leukocytosis with bandemia, and RLL infiltrate on chest x- ray with cough and hypoxia to 78% on room air. Received Vanco/Ceftaz in the ED. Urine Legionella and pneumococcal antigen negative. Chest x-ray showed light lower lobe infiltrate. ABG 7.48/39/80/28 on 4L oxygen * Follow up cultures-pending * Currently at 2L NC, titrate oxygen to an SpO2 > 92% * TRC/Neb treatments * Continue IV Unasyn 1.5g q6h 2. Vomitting likely secondary to esophageal spasm and GERD Barium swallow reveals intermittent esophageal spasm. Patient evaluated by GI today. * Increased dose of PPI to 40mg BID * Added ranitidine 300mg at bed time * GI consulted * Feed slowly 3. HFrEF/HTN Last echo in May 2012 showed mild reduced global left ventricular systolic function, hypokinetic septum, abnormal septal motion consistent with left bundle branch block, left ventricular EF estimated at 40-45% Continue digoxin 0.125 mg daily, coreg, aspirin, and losartan Digoxin level < 0.4 4. Psych: Continue divalproex 1000mg bid, was taking XR at home Depakote levels 90 Continue Abilify 30mg and Klonopin 1mg QID Puree/Thin regular diet DVT ppx-lovenox sc Full code Dispo: pending PT evaluation Problem List: 1. Aspiration pneumonia 2. Vomiting Pain Ratin Pain Location: n/a Pain Goal: Remain pain free Pain Plan: prn Tomorrow's Labs & Rationales: none - stable [facility]07[facility] 1551: Attending MD Review Statement Attending Statement Attending MD Statement: examined this patient, discuss w/resident/PA/ROOFING TECHNICIAN, agreed w/resident/PA/ROOFING TECHNICIAN, reviewed EMR data (avail), discussed with nursing, discussed with case mgmt, amended to note Attending Assessment/Plan: Patient seen and examined. Nursing staff reports that after breakfast this morning he vomited a small amount of fluid. Was evaluated by the gastroenterology service today. Respirations appear to be secondary to esophageal spasm as evidenced by his modified barium swallows. Recommendations are to pursue alternate means of feeding very PEG tube. Patient's father however does not want to pursue this. He is reasons for these have been highlighted by the gastroenterology service. In this case will continue oral feeding as tolerated. Modification of his diet is unlikely to reduce the risk of aspiration. Will complete antibiotic course for his aspiration pneumonia. Anticipate discharging patient back to the [facility] facility tomorrow. Patient's father and the facility are aware that patient continues to have risk of aspiration. If he continues to have repeated episodes of aspiration would recommend evaluation by the palliative care service. Nursing staff reports patient to be deconditioned state with difficulty ambulating. Obtain physical therapy consultation.
[2017-11-07 08:18] LABS: ABSOLUTE BASOPHIL COUNT 0 /CUMM (0.0-0.2); ABSOLUTE EOSINOPHIL COUNT 0 /CUMM (0.0-0.7); ABSOLUTE GRANULOCYTE CT 3.9 /CUMM (1.4-6.5); ABSOLUTE LYMPH COUNT 1.6 /CUMM (1.2-3.4); ABSOLUTE MONOCYTE COUNT 0.5 /CUMM (0.10-0.60); BASOPHIL % 0.3 % (0.0-2.0); EOSINOPHIL % 0.8 % (0-5); GRANULOCYTE % 64.3 % (42.2-75.2); HEMATOCRIT 29.6 % (42-52); MEAN CORPUSCULAR HGB 31.5 PG (27.0-31.0); MEAN CORPUSCULAR HGB CONC 32.5 G/DL (33.0-37.0); MEAN CORPUSCULAR VOLUME 96.8 FL (80.0-94.0); MEAN PLATELET VOLUME 7.6 FL (7.4-10.4); PLATELET COUNT 215 /CUMM (130-400); RBC DISTRIBUTION WIDTH 14.2 % (11.5-14.5); RED BLOOD CELL CT 3.06 /CUMM (4.70-6.10); WHITE BLOOD CELL COUNT 6.1 /CUMM (4.8-10.8)
--- NOTE | 2017-11-07 12:01 | Cons- Gastroenterology ---
General Information and HPI Consulting Request Date of Consult: 11/07/17 Requested By: Zelalem Salinas MD Reason for Consult: 1. Aspiration pneumonia 2. Dysphagia 3. Regurgitation 4. Feeding Difficulty Source of Information: Electronic Medical Record, Staff from [facility] Exam Limitations: unable to give history History of Present Illness: Mr. Alex Bah is a 8-year-old male with a past medical history of mental retardation and schizophrenia who was admitted for aspiration pneumonia. Patient has a past medical history of aspiration pneumonia as well as foreign body ingestion. Patient was admitted with decreased O2 saturation. Patient had a chest x-ray that showed a right lower lobe infiltrate concerning for a pneumonia. Patient was admitted previously for aspiration pneumonia and at that time had a modified barium swallow that did not show any signs of aspiration. It did show however intermittent dilatation of the cervical esophagus with delayed transit of barium into the thoracic esophagus as well as apparent dilatation of the lower part of the thoracic esophagus. At that time a dedicated barium esophagogram was recommended. However was not done. On this admission however her barium esophagram was obtained and the results are as follows. FINDINGS: The oropharyngeal phase of swallowing was normal. No evidence of tracheal aspiration. The esophageal motility was suboptimally evaluated due to patient's supine positioning. There appeared to be intermittent spasm and intermittent relaxation at the level of the esophagogastric junction causing intermittent emptying of the esophagus. The esophagus was mildly dilated, as noted on 12/29/2016. However, no evidence of esophageal mass, stricture, ulceration, hiatal hernia or Schatzki's ring. No episodes of gastroesophageal reflux occurred. IMPRESSION: 1. No evidence of hiatal hernia, Schatzki's ring or stricture. 2. The esophageal motility was suboptimally evaluated due to patient's inability to fully cooperate with the test. Images were acquired in a semiupright, supine position. As discussed on 12/29/2016, there appeared to be intermittent relaxation of the lower esophageal sphincter (possible intermittent esophageal spasm). I have spoken with the biodiesel engineering manager of the senior living who reports that the patient has intermittent regurgitation of food stuff especially in the morning after breakfast. There is no coughing or choking while swallowing and that regurgitation or vomiting often occurs 15 to 30 minutes after a meal. This regurgitation is often unpredictable but generally happens in the morning after which the patient is able to eat the remainder of his meals without difficulty. Allergies/Medications Allergies: Coded Allergies: Haemophilus B polysaccharide conj w/tetanus toxoid (From TRIHIBIT) (UNKNOWN ) diphtheria toxoid,adsorbed (UNKNOWN 04/01/17) diphtheria,pertussis (acellular),te (From TRIHIBIT) (UNKNOWN 04/01/17) tetanus and diphtheria toxoids (From DECAVAC (PF)) (UNKNOWN 04/01/17) tetanus toxoid, adsorbed (UNKNOWN 04/01/17) Uncoded Allergies: SURE DEODERANT (PER 04/01/17) Home Med List: Acetaminophen 325 MG TABLET 2 TAB PO Q6H PRN PAIN/TEMP 100.5-102 (Reported) Amoxicillin/Potassium Clav (Augmentin 875-125 Tablet) 875 MG-125 MG TABLET 1 TAB PO BID ASPIRATION PNA Aripiprazole (Abilify) 30 MG TABLET 1 TAB PO DAILY MENTAL HEALTH (Reported) Aspirin (Children's Aspirin) 81 MG TAB.CHEW 1 TAB PO DAILY HEART HEALTH ( Reported) Bacitracin 500 UNIT/GRAM OINT...G. 1 NURA TOP BID PRN WOUND UNTIL DRY/SCABBED (Reported) apply to affected area(s) Bisacodyl (Dulcolax) 10 MG SUPP.RECT 1 SUP RC QPM 4TH DAY NO BM (Reported) Carbamide Peroxide (Debrox) 6.5 % DROPS 6 DROP OTIC BID LEFT EAR (Reported) Carvedilol (Coreg) 12.5 MG TABLET 1 TAB PO BID HEART (Reported) Chlorhexidine Gluconate (Periogard) 0.12 % MOUTHWASH 15 ML PO BID GUMS ( Reported) Clomipramine HCl (Anafranil) 25 MG CAPSULE 1 CAP PO TID MENTAL HEALTH ( Reported) Clonazepam 1 MG TABLET 1 TAB PO Q6H UNKNOWN (Reported) Clotrimazole (Lotrimin AF) 1 % CREAM..G. 1 NURA TOP BID PRN ITCHING/PEELING/ REDDENED AREA (Reported) apply to affected area(s) [place] Tar (T-Gel) 0.5 % SHAMPOO 1 NURA TOP DAILY SCALP (Reported) Digoxin 125 MCG TABLET 1 TAB PO Monday HEART (Reported) Divalproex Sodium (Depakote ER) 500 MG TAB.ER.24H 2 TAB PO BID MENTAL HEALTH (Reported) Lactose-Reduced Food (Ensure Liquid) 237 ML LIQUID 1 CAN PO BID NUTRITION ( Reported) Loperamide HCl (Loperamide) 2 MG CAPSULE 2 CAP PO PRN DIARRHEA (Reported) LORazepam (Ativan) 1 MG TAB 1-2 TAB PO AD PRN 1 HR PRIOR TO PROCEDURE ( Reported) MAY REPEAT DOSE IN 1 HR PRN FOR AGITATION Losartan Potassium (Cozaar) 25 MG TABLET 1 TAB PO DAILY HYPERTENSION Magnesium Hydroxide (Milk Of Magnesia) 400 MG/5 ML ORAL.SUSP 30 ML PO QPM 2ND DAY NO BM (Reported) Methylcellulose (Citrucel) 479 GM POWDER 1 TBSP PO BID CONSTIPATION (Reported ) Multivitamin W/Iron, Minerals (Multivitamins With Iron) 1 EACH TAB.CHEW 1 TAB PO DAILY SUPPLEMENT (Reported) Pantoprazole Sodium (Protonix) 20 MG TABLET.DR 1 TAB PO DAILY GI (Reported) Polyethylene Glycol 3350 (Miralax) 17 GRAM POWD.PACK 1 PAC PO QPM 3RD DAY NO BM (Reported) dissolve in water Prednisone 10 MG TABLET 1 TAB PO BID ALLERGIC REACTION Pseudoephedrine HCl (Sudogest) 30 MG TABLET 1 TAB PO Q4H PRN NASAL CONGESTION (Reported) Sennosides/Docusate Sodium (Senna-Time S Tablet) 8.6 MG-50 MG TABLET 2 TAB PO BID CONSTIPATION (Reported) Stannous Fluoride (Gel-Jayesh) 0.4 % GEL..GRAM. 1 NURA PO BID TEETH (Reported) Vits A and D/White Pet/Lanolin (A and D Ointment) 42.5 GM OINT...G. 1 NURA TOP BID CHAFED SKIN (Reported) MIX WITH CALDESCENE, EQUAL PARTS Zinc Oxide/[place] Starch (Caldesene Baby Powder) (Unknown Strength) POWDER 1 NURA TOP BID PRN MINOR RASH (Reported) Current Medications: Current Medications Sig/Rupal Start time Last Medication Dose Route Stop Time Status Admin Ampicillin Sodium/ 1,500 MG Q6 11/04 599 AC 11/07 Sulbactam Sodium IV 1133 Sodium Chloride 100 ML Aripiprazole 30 MG DAILY 11/04 09 AC 11/07 PO 08 Aspirin 81 MG DAILY 11/04 09 AC 11/07 PO 0823 Bisacodyl 10 MG DAILY PRN 11/06 914 AC 11/06 ID 0923 Bisacodyl 5 MG DAILY 11/06 914 AC 11/07 PO 0823 Carvedilol 12.5 MG BID 11/04 0900 AC 11/07 PO 0823 Clonazepam 1 MG Q6H 11/04 0615 AC 11/07 PO 11/11 0614 1133 Digoxin 0.125 MG 11/06 0900 AC 11/06 PO 0924 Divalproex Sodium 1,000 MG BID 11/05 0936 AC 11/07 PO 0822 Enoxaparin Sodium 40 MG DAILY 11/04 09 AC 11/07 SC 0823 Losartan Potassium 25 MG DAILY 11/04 09 AC 11/07 PO 0823 Omeprazole 20 MG DAILY AC 11/04 07 AC 11/07 PO 0649 Polyethylene Glycol 17 GM DAILY 11/06 0914 AC 11/07 PO 0823 Past History Travel History Traveled to [place] past 21 day No Medical History Neurological: MR ARGUELLO: BLIND CHRONIC GINGIVITIS Cardiovascular: CHF, hypertension, LBBB Respiratory: NONE Gastrointestinal: constipation, GERD Hepatic: NONE Renal: NONE Psychiatric: anxiety, psychosis, AUTISM Blood Disorders: anemia Surgical History Surgical History: non-contributory Psychosocial History Where Do You Live? [facility] Who Do You Live With? [facility] Services at Home: None, patient lives at senior living Smoking Status: Unknown If Ever Smoked ETOH Use: denies use Illicit Drug Use: denies illicit drug use Functional Ability ADLs Needs Assist: dressing, eating, toileting, bathing. Ambulation: independent IADLs Needs Assist: shopping, housework, finances, food prep, telephone, transportation, medication admin. Review of Systems Review of Systems: Unable to obtain Exam & Diagnostic Data Vital Signs and I&O Vital Signs Date Time Temp Pulse Resp B/P B/P Pulse O2 O2 Flow FiO2 Mean Ox Delivery Rate 11/07 1416 97.6 78 18 122/72 97 Room Air 11/07 0823 83 124/70 11/07 0823 83 124/70 11/07 0800 94 Nasal 2.0L Cannula 11/07 0638 97.4 83 16 12470 94 Nasal 2.0L Cannula 11/07 0000 Nasal 2.0L Cannula 11/06 2219 84 122/75 11/06 2200 98.3 84 16 122/75 97 Room Air 11/06 1600 Nasal 2.0L Cannula Intake & Output 11/07 1600 11/07 0400 06/11/06 0400 11/05 1600 11/05 0400 Intake Total 276 025 2086 600 920 Output Total 200 350 150 Balance 912 663 7970 600 570 -150 Intake, IV 260 340 120 300 Intake, Oral 300 2000 480 620 Number 1 1 0 0 Bowel Movements Output, 200 Emesis Output, Urine 350 150 Patient 130 lb 129 lb 127 lb Weight Weight Bed scale Measurement Method Physical Exam General Appearance: no apparent distress Head: atraumatic Eyes: Bilateral: normal appearance. Neck: normal inspection, limited range of motion Respiratory: chest non-tender, decreased breath sounds, rhonchi Cardiovascular: regular rate/rhythm Gastrointestinal: normal bowel sounds, soft, non-tender Neurologic/Psych: awake, severe mental retardation, non-verbal Results Pertinent Lab Results: Laboratory Tests 11/07 11/06 0720 0721 Chemistry Sodium (137 - 145 mmol/L) 140 Potassium (3.5 - 5.1 mmol/L) 4.4 Chloride (98 - 107 mmol/L) 100 Carbon Dioxide (22 - 30 mmol/L) 36 H Anion Gap (5 - 16) 5 BUN (9 - 20 mg/dL) 6 L Creatinine (0.7 - 1.2 mg/dL) 0.6 L Estimated GFR (>60 ml/min) > 60 BUN/Creatinine Ratio (7 - 25 %) 10.0 Hematology CBC w Diff NO MAN DIFF REQ NO MAN DIFF REQ WBC (4.8 - 10.8 /CUMM) 6.1 8.0 RBC (4.70 - 6.10 /CUMM) 3.06 L 2.88 L Hgb (14.0 - 18.0 G/DL) 9.6 L 9.1 L Hct (42 - 52 %) 29.6 L 27.9 L MCV (80.0 - 94.0 FL) 96.8 H 96.8 H MCH (27.0 - 31.0 PG) 31.5 H 31.6 H MCHC (33.0 - 37.0 G/DL) 32.5 L 32.6 L RDW (11.5 - 14.5 %) 14.2 14.3 Plt Count (130 - 400 /CUMM) 215 194 MPV (7.4 - 10.4 FL) 7.6 7.8 Gran % (42.2 - 75.2 %) 64.3 70.4 Lymphocytes % (20.5 - 51.1 %) 27.0 21.6 Monocytes % (1.7 - 9.3 %) 7.6 7.3 Eosinophils % (0 - 5 %) 0.8 0.4 Basophils % (0.0 - 2.0 %) 0.3 0.3 Absolute Granulocytes (1.4 - 6.5 /CUMM) 3.9 5.6 Absolute Lymphocytes (1.2 - 3.4 /CUMM) 1.6 1.7 Absolute Monocytes (0.10 - 0.60 /CUMM) 0.5 0.6 Absolute Eosinophils (0.0 - 0.7 /CUMM) 0 0 Absolute Basophils (0.0 - 0.2 /CUMM) 0 0 Assessment/Plan Assessment/Recommendations: ASSESSMENT: 1. Aspiration Pneumonia 2. Regurgitation 3. Intermittent Esophageal Spasm -- this is associated with mild esophageal dilatation. Patient may have underlying esophageal motility disorder. Given that there are no signs of aspiration or oropharyngeal dysphagia, I do not see that PEG placement is warranted. Patient underwent EGD and colonoscopy in November 2016 which were both unremarkable. At that time patient was found to have no esophageal stricture, ring, or web. 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 RECOMMENDATIONS: 1. Would increase Protonix to 40 mg by mouth twice a day 30-45 minutes before breakfast and 30-45 minutes before dinner. Would also add high dose ranitidine (300 mg PO qhs) at night before bedtime. 2. Continue antibiotics as you have done for treatment of aspiration pneumonia 3. I spoke with the patient's father, Juan Jose Bah. I discussed with him that Alex is having aspiration not related to a swallowing difficulty but due to possible esophageal spasm. We discussed that this may be related to underlying reflux which I would like to treat. I also discussed with him the possibility of PEG placement which she said mindy would never tolerate. Mr. Bah said that data would pull out any PEG that was placed and would not tolerate placement of an abdominal binder either. He also said that eating food was one of Alex's only pleasures. I explained that PEG placement was no guarantee that Alex would not aspirate saliva or other liquids such as gastric secretions. I also explained that by not placing the PEG Alex may have aspiration again of other regurgitated materials. He understands this and would rather not have a PEG placed at this time. 4. GI will sign off for now. Please do not hesitate to recontact us as needed. Consult Acknowledgment - Thank you for your consult request.
[2017-11-07 14:16] VITALS: BP 122/72
--- NOTE | 2017-11-07 14:24 | Discharge Summary ---
Visit Information Visit Dates Admission Date: 11/04/17 Hospital Course Course Attending Physician: Zelalem Salinas MD Primary Care Physician: Lam Oglesby MD Hospital Course: Mr. 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 At snf he was found to have oxygen saturations that went down up to 78% with increased lethargy, excessive coughing associated with throwing up. At the emergency department Mr. Johnson was found to have a temperature of 104.9, pulse of 113, respiration of 20, blood pressure 131/68, he was saturating 99% on 2 L of nasal cannula. Relevant labs white count of 5.4, H/H of 11.0/33.0, platelet of 236. Sodium of 138, potassium 4.6, BUN/creatinine 19 point/0.9, glucose of 77, lactic acid of 1.1, calcium of 9.1. Chest x-ray showed right lower lobe infiltrate. ABG showed pH of 7.48/PCO2 of 39/PO2 of 80/bicarb of 28. Last echocardiogram was done in 2012 which showed mild reduced global left ventricular systolic function, hypokinetic septum, abnormal septal motion consistent with left bundle branch block and EF of 40-45%. He was admitted to general medicine for further treatment of following problem. Acute hypoxic respiratory failure and sepsis secondary to right lower lobe aspiration pneumonia. On admission he received 1 time of IV vancomycin and ceftazidime at the emergency department. He was then continued on IV Unasyn for aspiration pneumonia. Blood cultures did not show any growth after 5 days, urine cultures also remained negative. Urine Legionella and strep pneumonia antigen were negative. Patient received a bedside swallow evaluation was found to tolerate pured diet with nectar thin liquids, therefore his diet was modified accordingly while inpatient. He was transitioned to p.o. Augmentin upon discharge to complete a total course of 7 days. TRC evaluation was continued during hospital stay, his oxygen was titrated to maintain SPO2 greater than 92%. Heart Failure with reduced EF. He was continued on digoxin 0.125 mg daily, Coreg, aspirin and losartan. Digoxin level were monitored and were found to be less than 0.4 however his home dose was continued. Atypical psychosis. He was continued on divalproex thousand twice daily, Depakote levels were found to be within therapeutic level. He was continued on Abilify 30 mg daily and Klonopin 1 mg 4 times daily. Dysphagia with episodes of vomiting/regurgitation/feeding difficulty secondary to esophageal spasm Patient had initial swallow evaluation, they did not show any signs of aspiration and therefore he was started on pured and nectar thin diet. A barium alone was obtained due to his symptoms of regurgitation, it showed intermittent elevation of the cervical esophagus with delayed transit of the barium into the thoracic esophagus as well as apparent dilatation of the lower part of the thoracic esophagus. This was followed by a barium esophagogram that showed normal oropharyngeal phase, no tracheal aspiration, Schatzki's ring or stricture that was seen previously one year ago was not evident on this imaging. However there did appear to be intermittent spasm and intermittent relaxation at the level of the esophagogastric junction causing intermittent emptying of the esophagus along with mildly dilated esophagus. His Protonix was increased to 40 mg twice daily to be taken 30-45 minutes before breakfast and dinner. High-dose ranitidine at night before bedtime was also added. GI was on board and there was a discussion of possibility of PEG placement, however as per patient's father, Juan Jose, he would never tolerate this, as eating forward was 1 of Alex's only pleasures and PEG did not guarantee prevention of aspiration. He was kept full code. Pured and nectar thin diet. DVT prophylaxis. Allergies: Coded Allergies: Haemophilus B polysaccharide conj w/tetanus toxoid (From TRIHIBIT) (UNKNOWN ) diphtheria toxoid,adsorbed (UNKNOWN 04/01/17) diphtheria,pertussis (acellular),te (From TRIHIBIT) (UNKNOWN 04/01/17) tetanus and diphtheria toxoids (From DECAVAC (PF)) (UNKNOWN 04/01/17) tetanus toxoid, adsorbed (UNKNOWN 04/01/17) Uncoded Allergies: SURE DEODERANT (PER 04/01/17) Significant Procedures: SERVICE DATE: 11/04/17 EXAM TYPE: RAD - XRY-PORTABLE CHEST XRAY EXAMINATION: CHEST 1 VIEW CLINICAL INFORMATION: Dyspnea. COMPARISON: April 01, 2017. TECHNIQUE: An AP view of the chest is provided. FINDINGS: The cardiac silhouette is not enlarged. The mediastinal and hilar contours are unremarkable. There is a right lower lobe infiltrate. There is mild left lower lobe atelectasis. There are no pneumothoraces. The osseous structures are stable. IMPRESSION: Right lower lobe infiltrate concerning for pneumonia. Recommendation is for a followup chest series to be obtained following treatment and/or resolution of symptoms to assure resolution of this appearance. ERVICE DATE: 11/06/17- EXAM TYPE: RAD - XRY-BARIUM SWALLOW/ESOPHAGRAM EXAMINATION: XR BARIUM SWALLOW/ESOPHAGRAM CLINICAL INFORMATION: Vomiting. Follow-up Schatzki's ring. COMPARISON: Esophagram from 12/29/2016. TECHNIQUE: Esophagram was technically challenging due to incomplete cooperation from the patient. Also, patient was unable to stand on the examination table. The patient swallowed thin barium contrast in a supine, semiupright position. Multiple spot fluoroscopy images were obtained. FLUOROSCOPY TIME: 1 minute, 35 seconds NUMBER OF IMAGES: Four series of images were acquired. FINDINGS: The oropharyngeal phase of swallowing was normal. No evidence of tracheal aspiration. The esophageal motility was suboptimally evaluated due to patient's supine positioning. There appeared to be intermittent spasm and intermittent relaxation at the level of the esophagogastric junction causing intermittent emptying of the esophagus. The esophagus was mildly dilated, as noted on 12/29/2016. However, no evidence of esophageal mass, stricture, ulceration, hiatal hernia or Schatzki's ring. No episodes of gastroesophageal reflux occurred. IMPRESSION: 1. No evidence of hiatal hernia, Schatzki's ring or stricture. 2. The esophageal motility was suboptimally evaluated due to patient's inability to fully cooperate with the test. Images were acquired in a semiupright, supine position. As discussed on 12/29/2016, there appeared to be intermittent relaxation of the lower esophageal sphincter (possible intermittent esophageal spasm). Disposition Summary Disposition Principal Diagnosis: Aspiration pnuemonia Intermittent Esophageal Spasm HFREF Additional Diagnosis: Atypical psychosis GERD HTN Discharge Disposition: snf Discharge Instructions General Discharge Information Code Status: Full Code Patient's Diet: preed and nectar Patient's Activity: as tolerated. Follow-Up Instructions/Appts: please follow up with your PCP within one week of discharge. Check CBCs, folic acid and B12 levels in 1 week. Medications at Discharge Discharge Medications: Stop taking the following medications: Pantoprazole Sodium (Protonix) 20 MG TABLET.DR ORAL DAILY Continue taking these medications: Clomipramine HCl (Anafranil) 25 MG CAPSULE 1 Capsule ORAL THREE TIMES DAILY Comments: NOT GIVEN IN HOSPITAL Aripiprazole (Abilify) 30 MG TABLET 1 Tablet ORAL DAILY Comments: Last Taken:11/08/17 Time:08:30AM Digoxin (Digoxin) 125 MCG TABLET 1 Tablet ORAL MONDAY, MONDAY AND MONDAY Comments: Last Taken:11/08/17 Time:08:30AM Divalproex Sodium (Depakote ER) 500 MG TAB.ER.24H 2 Tablet ORAL TWICE DAILY Comments: Last Taken:11/08/17 Time:08:30AM Carvedilol (Coreg) 12.5 MG TABLET 1 Tablet ORAL TWICE DAILY Comments: Last Taken:11/08/17 Time:08:30AM Aspirin (Children's Aspirin) 81 MG TAB.CHEW 1 Tablet ORAL DAILY Comments: Last Taken:11/08/17 Time:08:30AM Sennosides/Docusate Sodium (Senna-Time S Tablet) 8.6 MG-50 MG TABLET 2 Tablet ORAL TWICE DAILY Comments: NOT GIVEN IN HOSPITAL Methylcellulose (Citrucel) 479 GM POWDER 1 Tablespoonful ORAL TWICE DAILY Comments: NOT GIVEN IN HOSPITAL Multivitamin W/Iron, Minerals (Multivitamins With Iron) 1 EACH TAB.CHEW 1 Tablet ORAL DAILY Comments: NOT GIVEN IN HOSPITAL Stannous Fluoride (Gel-Jayesh) 0.4 % GEL..GRAM. 1 Application ORAL TWICE DAILY Comments: NOT GIVEN IN HOSPITAL Clonazepam (Clonazepam) 1 MG TABLET 1 Tablet ORAL Q6H Comments: Last Taken:11/08/17 Time:12:16PM [place] Tar (T-Gel) 0.5 % SHAMPOO 1 Application On the skin DAILY Comments: NOT GIVEN IN HOSPITAL Chlorhexidine Gluconate (Periogard) 0.12 % MOUTHWASH 15 Milliliters ORAL TWICE DAILY Comments: NOT GIVEN IN HOSPITAL Zinc Oxide/[place] Starch (Caldesene Baby Powder) (Unknown Strength) POWDER 1 Application On the skin TWICE DAILY as needed for MINOR RASH Comments: NOT GIVEN IN HOSPITAL Carbamide Peroxide (Debrox) 6.5 % DROPS 6 DROP OTIC TWICE DAILY Comments: NOT GIVEN IN HOSPITAL Magnesium Hydroxide (Milk Of Magnesia) 400 MG/5 ML ORAL.SUSP 30 Milliliters ORAL Every night Comments: NOT GIVEN IN HOSPITAL Bisacodyl (Dulcolax) 10 MG SUPP.RECT 1 Suppository RECTAL Every night Comments: Last Taken:11/08/17 Time:08:30AM LORazepam (Ativan) 1 MG TAB 1-2 Tablet ORAL As Directed as needed for 1 HR PRIOR TO PROCEDURE Instructions: MAY REPEAT DOSE IN 1 HR PRN FOR AGITATION Comments: NOT GIVEN IN HOSPITAL Polyethylene Glycol 3350 (Miralax) 17 GRAM POWD.PACK 1 Packet ORAL Every night Instructions: dissolve in water Comments: Last Taken:11/08/17 Time:08:30AM Clotrimazole (Lotrimin AF) 1 % CREAM..G. 1 Application On the skin TWICE DAILY as needed for ITCHING/PEELING/REDDENED AREA Instructions: apply to affected area(s) Comments: NOT GIVEN IN HOSPITAL Loperamide HCl (Loperamide) 2 MG CAPSULE 2 Capsule ORAL as needed for DIARRHEA Comments: NOT GIVEN IN HOSPITAL Pseudoephedrine HCl (Sudogest) 30 MG TABLET 1 Tablet ORAL Q4H as needed for NASAL CONGESTION Comments: NOT GIVEN IN HOSPITAL Vits A and D/White Pet/Lanolin (A and D Ointment) 42.5 GM OINT...G. 1 Application On the skin TWICE DAILY Instructions: MIX WITH CALDESCENE, EQUAL PARTS Comments: NOT GIVEN IN HOSPITAL Bacitracin (Bacitracin) 500 UNIT/GRAM OINT...G. 1 Application On the skin TWICE DAILY as needed for WOUND UNTIL DRY/SCABBED Instructions: apply to affected area(s) Comments: NOT GIVEN IN HOSPITAL Acetaminophen (Acetaminophen) 325 MG TABLET 2 Tablet ORAL Q6H as needed for PAIN/TEMP 100.5-102 Comments: NOT GIVEN IN HOSPITAL Losartan Potassium (Cozaar) 25 MG TABLET 1 Tablet ORAL DAILY Qty = 30 Comments: Last Taken:11/08/17 Time:08:30AM Prednisone (Prednisone) 10 MG TABLET 1 Tablet ORAL TWICE DAILY Qty = 6 Comments: NOT GIVEN IN HOSPITAL Lactose-Reduced Food (Ensure Liquid) 237 ML LIQUID 1 Can ORAL TWICE DAILY Qty = 1 Comments: NOT GIVEN IN HOSPITAL Start taking the following new medications: Amoxicillin/Potassium Clav (Augmentin 875-125 Tablet) 875 MG-125 MG TABLET 1 Tablet ORAL TWICE DAILY Qty = 10 No Refills Comments: Last Taken:11/08/17 Time:12:11PM AMPICILLIN SOD (UNASYN) 1500MG GIVEN Ranitidine HCl (Ranitidine HCl) 300 MG CAPSULE 1 Capsule ORAL AT BEDTIME Qty = 30 No Refills Instructions: Take 1 tab at bedtime. Comments: Last Taken:11/07/17 Time:20:09PM FAMOTIDINE (PEPCID) GIVEN 40MG Omeprazole (Omeprazole) 20 MG CAPSULE.DR 2 Tablet ORAL 1/2 HR BEFORE BREAKFAST/DINNER Qty = 60 No Refills Comments: Last Taken:11/08/17 Time:05:12AM Copies To: Reny YANG,Lam Reyna; Neida YANG,Georgette Nguyen MD Review Statement Documenting Attending: Zelalem Salinas MD Other Findings: Medically stable to be discharged back to his snf.
[2017-11-07 21:53] VITALS: BP 130/82
--- NOTE | 2017-11-08 07:30 | PN- Housestaff ---
Donnell YANG,Stephanie 11/08/17 0730: Subjective Follow-up For: Sepsis 2/2 aspiration pneumonia Vomitting Esophageal Spasm GERD Subjective: Patient was seen and examined today. Patient had another episode of nonbloody emesis after breakfast this morning. Not complaining any pain. No acute events overnight. Review of Systems Constitutional: Reports: see HPI. Objective Last 24 Hrs of Vital Signs/I&O Vital Signs Date Time Temp Pulse Resp B/P B/P Pulse O2 O2 Flow FiO2 Mean Ox Delivery Rate 11/08 0838 Room Air 2.0L 11/08 0832 79 126/76 11/08 0831 79 126/76 11/08 0830 79 126/76 11/08 0800 93 Room Air 11/08 0731 98.4 79 20 126/76 93 11/07 2153 98.6 79 18 130/82 95 Room Air 11/07 2012 79 130/82 Intake & Output 11/08 1600 11/08 0800 11/08 0000 Intake Total 320 1050 Output Total Balance 320 1050 Intake, IV 200 100 Intake, Oral 120 950 Number 2 Bowel Movements Patient 123 lb Weight Weight Bed scale Measurement Method Physical Exam General Appearance: Alert, Cooperative, No Acute Distress Other Physical Findings: HEENT: Atraumatic, Mucous Membr. moist/pink Cardiovascular: Regular Rate, Normal S1, Normal S2 Lungs: bibasilar crackles Abdomen: Normal Bowel Sounds, Soft, No Tenderness Neurological: spontaneously talks, occasionally responds to questions, rocking back and forth Extremities: No Clubbing, No Cyanosis, No Edema, Normal Pulses, No Tenderness/ Swelling Current Medications: Current Medications Sig/Rupal Start time Last Medication Dose Route Stop Time Status Admin Ampicillin Sodium/ 1,500 MG Q6 11/04 06 DCD 11/08 Sulbactam Sodium IV 1211 Sodium Chloride 100 ML Aripiprazole 30 MG DAILY 11/04 09 DCD 11/08 PO 0831 Aspirin 81 MG DAILY 11/04 899 DCD 11/08 PO 0831 Bisacodyl 10 MG DAILY PRN 11/06 0815 DCD 11/06 [place] 0923 Bisacodyl 5 MG DAILY 11/06 914 DCD 11/08 PO 0830 Carvedilol 12.5 MG BID 11/04 09 DCD 11/08 PO 0831 Clonazepam 1 MG Q6H 11/04 06 DCD 11/08 PO 11/11 0614 1216 Digoxin 0.125 MG 11/06 09 DCD 11/08 PO 0830 Divalproex Sodium 1,000 MG BID 11/05 0936 DCD 11/08 PO 0830 Enoxaparin Sodium 40 MG DAILY 11/04 09 DCD 11/08 SC 0830 Famotidine 40 MG AT BEDTIME 11/07 2100 DCD 11/07 PO 2008 Losartan Potassium 25 MG DAILY 11/04 09 DCD 11/08 PO 0832 Omeprazole 40 MG 1/2H B/BREAKF/DINNER 11/07 1730 DCD 11/08 PO 0512 Omeprazole 20 MG DAILY AC 11/04 0700 DC 11/07 PO 0649 Polyethylene Glycol 17 GM DAILY 11/06 0914 DCD 11/08 PO 0830 Assessment/Plan Assessment: 62-year-old male with past medical history of mental retardation, autism, schizophrenia, cardiomyopathy, CHF, mitral valve regurgitation, hypertension, chronic constipation was [facility] in [facility] from [facility] with chief complaints of fever chills and temperature along with increased coughing associated with throwing up, dyspnea and hypoxia up to 78%. Patient is currently admitted to [facility] for the followin. Acute hypoxemic respiratory failure and sepsis secondary to Aspiration PNA: - Fever, tachycardia, leukocytosis with bandemia, and RLL infiltrate on chest x- ray with cough and hypoxia to 78% on room air. Received Vanco/Ceftaz in the ED. Urine Legionella and pneumococcal antigen negative. Chest x-ray showed light lower lobe infiltrate. ABG 7.48/39/80/28 on 4L oxygen * Follow up cultures-pending * Currently at 2L NC, titrate oxygen to an SpO2 > 92% * TRC/Neb treatments * Will send on Augmentin to complete antibiotic therapy 2. Vomitting likely secondary to esophageal spasm and GERD Barium swallow reveals intermittent esophageal spasm. Patient evaluated by GI, vomitting is likely secondary to acid reflux. Medications adjusted. * Increased dose of PPI to 40mg BID * Added ranitidine 300mg at bed time * GI consulted * Feed slowly * Will send home with new regimen, instructed [facility] to feed slowly and in small portions and keep patient up right. 3. HFrEF/HTN Last echo in May 2012 showed mild reduced global left ventricular systolic function, hypokinetic septum, abnormal septal motion consistent with left bundle branch block, left ventricular EF estimated at 40-45% Continue digoxin 0.125 mg daily, coreg, aspirin, and losartan Digoxin level < 0.4 4. Psych: Continue divalproex 1000mg bid, was taking XR at home Depakote levels 90 Continue Abilify 30mg and Klonopin 1mg QID Puree/Thin regular diet DVT ppx-lovenox sc Full code Dispo: discharge back to [facility] today, will work with PT at [facility]. Discussed with his father. States patient does not ambulate much since he lost his vision and states patient would likely be more comfortable getting physical therapy at his f[facility]. Problem List: 1. Pneumonia 2. Vomiting Pain Ratin Pain Location: n/a Pain Goal: Remain pain free Pain Plan: prn Tomorrow's Labs & Rationales: none- discharge today Rita YANG,Zelalem 11/08/17 1248: Attending MD Review Statement Attending Statement Attending MD Statement: examined this patient, discuss w/resident/PA/COMMUNITY ORGANIZATION AIDE, agreed w/resident/PA/COMMUNITY ORGANIZATION AIDE, discussed with family, reviewed EMR data (avail), discussed with nursing, discussed with case mgmt, amended to note Attending Assessment/Plan: Patient seen and examined. Father present at the bedside. Had an extensive conversation with him regarding his sounds here. Patient will be discharged back to the [facility] today. We will continue PPI therapy. Father wants to pursue conservative measures only and does not want a feeding tube. We did have a goals of care conversation with him. I recommend that he follows up with palliative care services at the [facility]. Father states that patient is mostly sedentary at the [facility]. He ambulates infrequently would use a walker. Utilizes a wheelchair as well. Father of the impression that patient will not do well at the longterm facility undergoing short-term rehabilitation. In view of this patient will be discharged back to the [facility] with physical therapy services there to help with his deconditioning. Father is in agreement with this plan.
[2017-11-08 07:31] VITALS: BP 126/76
[2017-11-08] MEDS ORDERED: RANITIDINE HCL300 M3 PO ×2 (08:23→11:22)
[2017-11-08] MEDS ORDERED: OMEPRAZOLE20 M2 PO ×2 (08:23→11:22)
[2017-11-08] MEDS ORDERED: AUGMENTIN 875-1 EACH PO ×2 (08:27→11:22)
[2017-11-08 08:32] VITALS: BP 126/76
== END 2017-11-08 15:35 | DRG 871 ==
LOC: ERH 00:19 → ERHI 01:59 → 2NB 01:59 → ENRESERV 02:38 → 2NB 03:35 → ENPENDDIS 11-08 11:20 → ENTRNSPT 11-08 15:27 → EDTRNSPT 11-08 15:28 → EDTRNSPTSTS 11-08 15:28 → 2NB 11-08 15:35 → CMPTRNSPT 11-08 15:42
PROVIDERS: Emergency Medicine; Internal Medicine; Preventive Medicine Public Health & General Preventive Medicine; Student in an Organized Health Care Education/Training Program
DX: A41.9 Sepsis, unspecified organism (principal); J96.01 Acute respiratory failure with hypoxia; J69.0 Pneumonitis due to inhalation of food and vomit; F84.0 Autistic disorder; I42.9 Cardiomyopathy, unspecified; I50.32 Chronic diastolic (congestive) heart failure; I11.0 Hypertensive heart disease with heart failure; F79 Unspecified intellectual disabilities; I34.0 Nonrheumatic mitral (valve) insufficiency; R13.10 Dysphagia, unspecified; K22.4 Dyskinesia of esophagus; K21.9 Gastro-esophageal reflux disease without esophagitis; K59.09 Other constipation; F41.9 Anxiety disorder, unspecified; H54.8 Legal blindness, as defined in USA; R56.9 Unspecified convulsions; F29 Unspecified psychosis not due to a substance or known physiological condition; D64.9 Anemia, unspecified; R32 Unspecified urinary incontinence; F20.9 Schizophrenia, unspecified
CPT/HCPCS: 2NBP; 36592; 71045; 74220; 81001; 82436; 87040; 87086; 87449; 87450; 93005; 93010; 96361; 96374; 96375; 99291; J0131; J0713; J1650; J1885; J3370; J3490

== ENCOUNTER 2018-01-13 09:23 | Inpatient (IN) | payer OTHER, MEDICARE ==
[~2018-01-13] VITALS: Ht 157.5 cm; Wt 47.8 kg
[~2018-01-13 09:23] MED LIST changes: +AUGMENTIN 875-1 EACH PO; +OMEPRAZOLE20 M2 PO; +RANITIDINE HCL300 M3 PO
[2018-01-13 09:54] LABS: ABSOLUTE BASOPHIL COUNT 0 /CUMM (0.0-0.2); ABSOLUTE EOSINOPHIL COUNT 0 /CUMM (0.0-0.7); ABSOLUTE LYMPH COUNT 0.4 /CUMM (1.2-3.4); ABSOLUTE MONOCYTE COUNT 1.4 /CUMM (0.10-0.60); BASOPHIL % 0 % (0.0-2.0); EOSINOPHIL % 0 % (0-5); GRANULOCYTE % 87.1 % (42.2-75.2); HEMATOCRIT 35.3 % (42-52); MEAN CORPUSCULAR HGB 31.6 PG (27.0-31.0); MEAN CORPUSCULAR HGB CONC 33.7 G/DL (33.0-37.0); MEAN CORPUSCULAR VOLUME 93.6 FL (80.0-94.0); MEAN PLATELET VOLUME 7.8 FL (7.4-10.4); PLATELET COUNT 209 /CUMM (130-400); RBC DISTRIBUTION WIDTH 14.9 % (11.5-14.5); RED BLOOD CELL CT 3.77 /CUMM (4.70-6.10); WHITE BLOOD CELL COUNT 13.8 /CUMM (4.8-10.8)
--- NOTE | 2018-01-13 11:25 | RADIOLOGY REPORT ---
EXAMINATION: XR CHEST CLINICAL INFORMATION: Fever. History of aspiration. Presumptive diagnosis of aspiration pneumonia. COMPARISON: Several prior chest x-rays, most recent of which is dated 11/04/2017. TECHNIQUE: 2 views of the chest were obtained on 3 images. FINDINGS: Evaluation is limited with the patient's chin projecting over the upper chest, obscuring assessment. The cardiomediastinal silhouette is within normal limits in size. Lungs bilaterally are symmetrically expanded. There is improved aeration now seen in the right lung base but persistent patchy opacity is noted, suspicious for recurrent or residual pneumonia. Some reticular opacity in the left lung base is seen, improved from prior study, likely representing atelectatic changes. No significant pleural effusion is seen. No pneumothorax is noted. Abnormal next lytic and sclerotic densities in the right proximal humerus and the glenoid are again noted, slowly progressive over multiple years, most likely representing severe degenerative changes. Mild gaseous distention of bowel loops in the abdomen. IMPRESSION: 1. Recurrent or residual right basilar pneumonia. 2. Left basilar subsegmental atelectasis.
--- NOTE | 2018-01-13 11:36 | ED GENERAL ADULT ---
History of Present Illness General Chief Complaint: Fever Stated Complaint: FEVER Source: patient, C[facility]GIVER FROM [facility] Exam Limitations: clinical condition Vital Signs & Intake/Output Vital Signs & Intake/Output Vital Signs Date Time Temp Pulse Resp B/P B/P Pulse O2 O2 Flow FiO2 Mean Ox Delivery Rate 01/13 0926 98.6 90 20 148/75 95 Room Air Allergies Coded Allergies: Haemophilus B polysaccharide conj w/tetanus toxoid (From TRIHIBIT) (UNKNOWN ) diphtheria toxoid,adsorbed (UNKNOWN 04/01/17) diphtheria,pertussis (acellular),te (From TRIHIBIT) (UNKNOWN 04/01/17) tetanus and diphtheria toxoids (From DECAVAC (PF)) (UNKNOWN 04/01/17) tetanus toxoid, adsorbed (UNKNOWN 04/01/17) Uncoded Allergies: SURE DEODERANT (PER 04/01/17) Triage Note: PT TO ER FROM [facility] FOR FEVERS AND SHIVERING THIS AM, PT WAS MEDICATED WITH MOTRIN AND IS AFEBRILE 98.6 AT THIS TIME. PT DENIES PAIN. CONDUCTOR SLEEPING CAR WITH PT. Triage Nurses Notes Reviewed? yes Onset: Abrupt Duration: day(s): (1-2), changing over time, continues in ED Timing: single episode today Injury Environment: home Severity: mild, moderate No Modifying Factors: none HPI: 62-year-old male history of CHF, hypertension, hyperlipidemia, autism/cognitive delay brought in from a custodial by his caregiver for evaluation of fever. Caregiver reports patient had been more lethargic than usual and was complaining of feeling sick. He took his temperature this morning it was 102.8. Patient was medicated with ibuprofen with good effect on arrival here he is afebrile. Patient has a history of aspiration pneumonia and they're concerned this may be what he has. Caregiver states patient has not had nausea vomiting or diarrhea he has been eating and drinking normally. No urinary symptoms abdominal pain chest pain or any other associated symptoms. Other than being more lethargic than usual his mental status is at baseline. Patient was treated for pneumonia back in October of this year. (Solomon SÁNCHEZ,Nitin) Reconcile Medications Acetaminophen 325 MG TABLET 2 TAB PO Q6H PRN PAIN/TEMP 100.5-102 (Reported) Amoxicillin/Potassium Clav (Augmentin 875-125 Tablet) 875 MG-125 MG TABLET 1 TAB PO BID ASPIRATION PNA Aripiprazole (Abilify) 30 MG TABLET 1 TAB PO QPM MENTAL HEALTH (Reported) Aspirin (Children's Aspirin) 81 MG TAB.CHEW 1 TAB PO DAILY HEART HEALTH ( Reported) Bacitracin 500 UNIT/GRAM OINT...G. 1 NURA TOP BID PRN WOUND UNTIL DRY/SCABBED (Reported) apply to affected area(s) Bisacodyl (Dulcolax) 10 MG SUPP.RECT 1 SUP RC QPM 4TH DAY NO BM (Reported) Carbamide Peroxide (Debrox) 6.5 % DROPS 6 DROP OTIC BID LEFT EAR (Reported) Carvedilol (Coreg) 12.5 MG TABLET 1 TAB PO BID HEART (Reported) Chlorhexidine Gluconate (Periogard) 0.12 % MOUTHWASH 15 ML PO BID GUMS ( Reported) Clomipramine HCl (Anafranil) 25 MG CAPSULE 1 CAP PO TID MENTAL HEALTH ( Reported) Clonazepam 1 MG TABLET 1 TAB PO Q6H UNKNOWN (Reported) Clotrimazole (Lotrimin AF) 1 % CREAM..G. 1 NURA TOP BID PRN ITCHING/PEELING/ REDDENED AREA (Reported) apply to affected area(s) [place] Tar (T-Gel) 0.5 % SHAMPOO 1 NURA TOP DAILY SCALP (Reported) Digoxin 125 MCG TABLET 1 TAB PO Monday HEART (Reported) Divalproex Sodium (Depakote ER) 500 MG TAB.ER.24H 2 TAB PO BID MENTAL HEALTH (Reported) Lactose-Reduced Food (Ensure Liquid) 237 ML LIQUID 1 CAN PO BID NUTRITION ( Reported) Loperamide HCl (Loperamide) 2 MG CAPSULE 2 CAP PO PRN DIARRHEA (Reported) LORazepam (Ativan) 1 MG TAB 1-2 TAB PO AD PRN 1 HR PRIOR TO PROCEDURE ( Reported) MAY REPEAT DOSE IN 1 HR PRN FOR AGITATION Losartan Potassium (Cozaar) 25 MG TABLET 1 TAB PO DAILY HYPERTENSION Magnesium Hydroxide (Milk Of Magnesia) 400 MG/5 ML ORAL.SUSP 30 ML PO QPM 2ND DAY NO BM (Reported) Methylcellulose (Citrucel) 479 GM POWDER 1 TBSP PO BID CONSTIPATION (Reported ) Multivitamin W/Iron, Minerals (Multivitamins With Iron) 1 EACH TAB.CHEW 1 TAB PO DAILY SUPPLEMENT (Reported) Omeprazole 20 MG CAPSULE.DR 2 TAB PO BID GERD Polyethylene Glycol 3350 (Miralax) 17 GRAM POWD.PACK 1 PAC PO QPM 3RD DAY NO BM (Reported) dissolve in water Prednisone 10 MG TABLET 1 TAB PO BID ALLERGIC REACTION Pseudoephedrine HCl (Sudogest) 30 MG TABLET 1 TAB PO Q4H PRN NASAL CONGESTION (Reported) Ranitidine HCl 300 MG CAPSULE 1 CAP PO AT BEDTIME GERD Take 1 tab at bedtime. Sennosides/Docusate Sodium (Senna-Time S Tablet) 8.6 MG-50 MG TABLET 2 TAB PO BID CONSTIPATION (Reported) Stannous Fluoride (Gel-Jayesh) 0.4 % GEL..GRAM. 1 NURA PO BID TEETH (Reported) Vits A and D/White Pet/Lanolin (A and D Ointment) 42.5 GM OINT...G. 1 NRUA TOP BID CHAFED SKIN (Reported) MIX WITH CALDESCENE, EQUAL PARTS Zinc Oxide/[place] Starch (Caldesene Baby Powder) (Unknown Strength) POWDER 1 NURA TOP BID PRN MINOR RASH (Reported) (Sharyn YANG,Matthew Jacobsen) Past History Travel History Traveled to [place] past 21 day No Medical History Any Pertinent Medical History? see below for history Neurological: MR JOS: BLIND CHRONIC GINGIVITIS Cardiovascular: CHF, hypertension, LBBB Respiratory: NONE Gastrointestinal: constipation, GERD Hepatic: NONE Renal: NONE Psychiatric: anxiety, psychosis, AUTISM Blood Disorders: anemia History of MRSA: No History of VRE: No History of CDIFF: No Surgical History Surgical History: non-contributory Psychosocial History Who do you live with Paid Attentent Services at Home None, patient lives at custodial What is your primary language [place]ayan Tobacco Use: Never used ETOH Use: denies use Illicit Drug Use: denies illicit drug use Family History Hx Contributory? No (Nitin Harris) Review of Systems Review of Systems Constitutional: Reports: fever, malaise. EENTM: Reports: no symptoms. Respiratory: Reports: no symptoms. Cardiovascular: Reports: no symptoms. GI: Reports: no symptoms. Genitourinary: Reports: no symptoms. Musculoskeletal: Reports: no symptoms. Skin: Reports: no symptoms. Neurological/Psychological: Reports: no symptoms. Hematologic/Endocrine: Reports: no symptoms. Immunologic/Allergic: Reports: no symptoms. All Other Systems: Reviewed and Negative (Solomon SÁNCHEZ,Nitin) Physical Exam Physical Exam General Appearance: well developed/nourished, no apparent distress, alert, awake Head: atraumatic, normal appearance Eyes: Bilateral: EOMI, other (BLIND). Ears, Nose, Throat: normal pharynx, normal ENT inspection, hearing grossly normal Neck: normal inspection, supple, full range of motion Respiratory: normal breath sounds, chest non-tender, no respiratory distress, lungs clear Cardiovascular: regular rate/rhythm, normal peripheral pulses Peripheral Pulses: 2+ radial (R), 2+ radial (L) Gastrointestinal: normal bowel sounds, soft, non-tender, no organomegaly Back: normal inspection, normal range of motion, no vertebral tenderness Extremities: normal inspection, normal range of motion, no edema Neurologic/Psych: no motor/sensory deficits, awake, alert Skin: intact, normal color, warm/dry Lymphatic: no anterior cervical carmella Core Measures ACS in differential dx? No CVA/TIA Diagnosis: No Sepsis Present: No Sepsis Focused Exam Completed? No (Nitin Harris) Progress Differential Diagnoses I considered the following diagnoses in my evaluation of the patient: [ Aspiration pneumonia, community acquired pneumonia, UTI, cellulitis, viral syndrome, ] Plan of Care: Orders Procedure Date/time Status Nothing by Mouth 01/13 D Active STREP PNEUMO URINARY ANTIGEN 01/13 1330 Active LEGIONELLA URINARY ANTIGEN 01/13 1330 Active LOWER RESPIRATORY CULTURE 01/13 1329 Active Pathway - chart 01/13 1255 Active House Staff 01/13 1255 Active Patient Data 01/13 1255 Active Add-on Test (ER Only) 01/13 1239 Active Patient Data 01/13 1153 Active EKG 01/13 1148 Active ED Holding Orders 01/13 1147 Active Admit to inpatient 01/13 1147 Active Vital Signs 01/13 1147 Active Code Status 01/13 1147 Active BLOOD CULTURE 01/13 1128 Active Intake & Output 01/13 0945 Active TROPONIN LEVEL 01/13 0942 Complete URINALYSIS 01/13 0937 Active DIGOXIN 01/13 0937 Complete C-REACTIVE PROTEIN 01/13 0937 Complete COMPREHENSIVE METABOLIC PANEL 01/13 0937 Complete CBC WITHOUT DIFFERENTIAL 01/13 0937 Complete SWALLOW EVALUATION 01/13 UNK Active TRC EVALUATION (GEN) 01/13 UNK Active VTE Mechanical Prophylaxis 01/13 UNK Active Precautions 01/13 UNK Active Current Medications Sig/Rupal Start time Last Medication Dose Stop Time Status Admin Digoxin 0.125 MG 01/15 AC (Lanoxin) Aspirin 81 MG DAILY 01/14 900 AC (Aspirin) Losartan Potassium 25 MG DAILY 01/14 900 AC (Cozaar) Multivitamins 1 TAB DAILY 01/14 900 AC (Theragran Vitamins) Aripiprazole 30 MG QPM 01/13 2100 AC (Abilify) Carvedilol 12.5 MG BID 01/13 2100 AC (Coreg) Divalproex Sodium 500 MG BID 01/13 2100 AC (Depakote) Senna/Docusate Sodium 2 TAB BID 01/13 2100 AC (Senokot S) Vitamin A/Vitamin D 1 NURA BID 01/13 2100 AC (A+D Original) Clomipramine HCl 75 MG 01/13 AC (Anafranil) Clindamycin 900 MG IQ8 01/13 1600 AC (Cleocin) Dextrose/Water 50 ML (D5W) Clomipramine HCl 25 MG 0800,1200,1600 01/13 1600 AC (Anafranil) Acetaminophen 650 MG Q6H PRN 01/13 1315 AC (Tylenol) Clonazepam 1 MG Q6H 01/13 1315 AC (Klonopin 1MG Tab) 01/20 1314 Zinc Oxide 1 NURA BID PRN 01/13 1300 AC (Desitin) Laboratory Tests 01/13/18 0942: Anion Gap 4 L, Estimated GFR > 60, BUN/Creatinine Ratio 16.7, Glucose 82, Calcium 9.2, Total Bilirubin 0.4, AST 17, ALT 19 L, Alkaline Phosphatase 48, Troponin I < 0.01, C-Reactive Prot, Quant 1.1 H, Total Protein 6.9, Albumin 3.4 L, Globulin 3.5, Albumin/Globulin Ratio 1.0 L, CBC w Diff MAN DIFF ORDERED, RBC 3.77 L, MCV 93.6, MCH 31.6 H, MCHC 33.7, RDW 14.9 H, MPV 7.8, Gran % 87.1 H, Lymphocytes % 2.7 L, Monocytes % 10.2 H, Eosinophils % 0, Basophils % 0, Absolute Granulocytes 12.0 H, Segmented Neutrophils 83 H, Band Neutrophils 8 H, Absolute Lymphocytes 0.4 L, Lymphocytes 1 L, Monocytes 7, Absolute Monocytes 1.4 H, Eosinophils 1, Absolute Eosinophils 0, Absolute Basophils 0, Anisocytosis 1+, Stomatocytes 1+, Digoxin < 0.4 L 01/13/18 0938: Troponin I Cancelled Microbiology 01/13 1330 URINE ROUT: Legionella Antigen - COLB 01/13 1330 URINE ROUT: Streptococcus pneumoniae Antigen (M - COLB 01/13 1329 LOWER RESP: Respiratory Culture - COLB 01/13 1329 LOWER RESP: Gram Stain - COLB 01/13 1212 BLOOD: Blood Culture - RECD 01/13 1203 BLOOD: Blood Culture - RECD Patient is here for evaluation of a fever. According to the caregiver he had a temp of 102.8 this morning. He was given ibuprofen with good effect. He is afebrile here. He does ability lethargic. Vital signs are stable. Labs chest x-ray obtained. WBCount of 14,000 with bandemia. Chest x-ray shows a right sided pneumonia. There is a concern for aspiration pneumonia given his history. Patient will be started on clindamycin due to penicillin allergy. She'll be admitted to the hospital for further evaluation and treatment. He will require serial labs serial chest x-rays IV antibiotics IV fluids nothing by mouth follow-up cultures and pulmonology consult. Case discussed with Dr. Coles he agrees. Diagnostic Imaging: Viewed by Me: Radiology Read. Discussed w/RAD: Radiology Read. CXR Impression: PATIENT: MATTHEW SKINNER PRESENT AGE: 62 PATIENT ACCOUNT NO: [id number] : 57 LOCATION: [facility] ORDERING PHYSICIAN: Nitin SÁNCHEZ SERVICE DATE: 01/13/18 EXAM TYPE: RAD - XRY-CHEST XRAY, TWO VIEWS EXAMINATION: XR CHEST CLINICAL INFORMATION: Fever. History of aspiration. Presumptive diagnosis of aspiration pneumonia. COMPARISON: Several prior chest x-rays, most recent of which is dated 11/04/2017. TECHNIQUE: 2 views of the chest were obtained on 3 images. FINDINGS: Evaluation is limited with the patient's chin projecting over the upper chest, obscuring assessment. The cardiomediastinal silhouette is within normal limits in size. Lungs bilaterally are symmetrically expanded. There is improved aeration now seen in the right lung base but persistent patchy opacity is noted, suspicious for recurrent or residual pneumonia. Some reticular opacity in the left lung base is seen, improved from prior study, likely representing atelectatic changes. No significant pleural effusion is seen. No pneumothorax is noted. Abnormal next lytic and sclerotic densities in the right proximal humerus and the glenoid are again noted, slowly progressive over multiple years, most likely representing severe degenerative changes. Mild gaseous distention of bowel loops in the abdomen. IMPRESSION: 1. Recurrent or residual right basilar pneumonia. 2. Left basilar subsegmental atelectasis. DICTATED BY: Anu Gómez MD DATE/TIME DICTATED:01/13/181114 CHIEF DIVERSITY OFFICER:GRAY DATE/TIME TRANSCRIBED:1114 CONFIDENTIAL, DO NOT COPY WITHOUT APPROPRIATE AUTHORIZATION. < Electronically signed in Other Vendor System> SIGNED BY: Anu Gómez MD 01/13/181124 Initial ED EKG: normal sinus rhythm, LBBB, mULTIFOCAL pvc Prior EKG: unchanged (Nitin Harris) Departure Departure Disposition: STILL A PATIENT Condition: Stable Clinical Impression Primary Impression: Aspiration pneumonia Qualifiers: Aspiration pneumonia type: unspecified Laterality: right Lung location: unspecified part of lung Qualified Code: J69.0 - Pneumonitis due to inhalation of food and vomit Referrals: Reny YANG,Lam Reyna (PCP/Family) Departure Forms: Customer Survey General Discharge Information Admission Note Spoke With: Osei Funez MD Documentation of Exam: Documentation of any treatments & extenuating circumstances including Concerns Regarding Discharge (functional status, medication knowledge or non-compliance, living conditions, etc.) that warrant an admission rather than observation: [ Serial labs, serial chest x-rays, pulmonology, IV antibiotics, IV fluids follow- up cultures, monitoring of vital signs, nothing by mouth] (Nitin Harris) Departure Prescriptions: Current Visit Scripts Omeprazole 2 TAB PO BID #60 TAB PA/DRIVE AWAY DRIVER Co-Sign Statement Statement: ED Attending supervision documentation- [X] I saw and evaluated the patient. I have also reviewed all the pertinent lab results and diagnostic results. I agree with the findings and the plan of care as documented in the PA's/DRIVE AWAY DRIVER's documentation. [X] I have reviewed the ED Record and agree with the PA's/DRIVE AWAY DRIVER's documentation. [] Additions or exceptions (if any) to the PAs/DRIVE AWAY DRIVER's note and plan are summarized below: [Patient requires admission for treatment for aspiration pneumonia, IV antibiotics, swallow evaluation] (Sharyn YANG,Matthew Jacobsen) Critical Care Note Critical Care Note Critical Care Time: non-applicable (Solomon SÁNCHEZ,Nitin)
--- NOTE | 2018-01-13 12:50 | History & Physical ---
Kodi YANG,[facility] 01/13/18 1154: General Information and HPI MD Statement: I have seen and personally examined MATTHEW SKINNER and documented this H&P. The patient is a 62 year old M who presented with a patient stated chief complaint of lethargy . Source of Information: patient, family, old records, EMS Exam Limitations: clinical condition History of Present Illness: Mr. Johnson is a 62-year-old legally blind with past medical history of mental retardation, autism, anxiety disorder, atypical psychosis, right hand contracture, anemia, dysphagia, urinary incontinence, retinal detachment, schizophrenia, dilated cardiomyopathy, CHF, mitral valve regurgitation, hypertension who was brought to the emergency department on 01/13/2018 after it was found the patient was febrile up to 102.8F and shivering when he woke up this am. Prior to coming in, the patient was given some ibuprofen. It was reported that the patient was in his normal state of health prior to his episode this morning (no reports of any choking or episodes of cough at the facility). Since being discharged from on 11/08 (where he was treated for aspiration PNA ), the patient has been able to participate in activities of daily living, and has had no issues with PO food and liquid intake. Much of the clinical history was obtained from the patient Aide, due to the patients condition. At the time of our clinical interaction the patient denied any fever, chills, nausea, vomiting. Patient Lives at [facility]. Allergies/Medications Allergies: Coded Allergies: Haemophilus B polysaccharide conj w/tetanus toxoid (From TRIHIBIT) (UNKNOWN ) diphtheria toxoid,adsorbed (UNKNOWN 04/01/17) diphtheria,pertussis (acellular),te (From TRIHIBIT) (UNKNOWN 04/01/17) tetanus and diphtheria toxoids (From DECAVAC (PF)) (UNKNOWN 04/01/17) tetanus toxoid, adsorbed (UNKNOWN 04/01/17) Uncoded Allergies: SURE DEODERANT (PER 04/01/17) Home Med list Acetaminophen 325 MG TABLET 2 TAB PO Q6H PRN PAIN/TEMP 100.5-102 (Reported) Amoxicillin/Potassium Clav (Augmentin 875-125 Tablet) 875 MG-125 MG TABLET 1 TAB PO BID ASPIRATION PNA Aripiprazole (Abilify) 30 MG TABLET 1 TAB PO QPM MENTAL HEALTH (Reported) Aspirin (Children's Aspirin) 81 MG TAB.CHEW 1 TAB PO DAILY HEART HEALTH ( Reported) Bacitracin 500 UNIT/GRAM OINT...G. 1 NURA TOP BID PRN WOUND UNTIL DRY/SCABBED (Reported) apply to affected area(s) Bisacodyl (Dulcolax) 10 MG SUPP.RECT 1 SUP RC QPM 4TH DAY NO BM (Reported) Carbamide Peroxide (Debrox) 6.5 % DROPS 6 DROP OTIC BID LEFT EAR (Reported) Carvedilol (Coreg) 12.5 MG TABLET 1 TAB PO BID HEART (Reported) Chlorhexidine Gluconate (Periogard) 0.12 % MOUTHWASH 15 ML PO BID GUMS ( Reported) Clomipramine HCl (Anafranil) 25 MG CAPSULE 1 CAP PO TID MENTAL HEALTH ( Reported) Clonazepam 1 MG TABLET 1 TAB PO Q6H UNKNOWN (Reported) Clotrimazole (Lotrimin AF) 1 % CREAM..G. 1 NURA TOP BID PRN ITCHING/PEELING/ REDDENED AREA (Reported) apply to affected area(s) Addison Tar (T-Gel) 0.5 % SHAMPOO 1 NURA TOP DAILY SCALP (Reported) Digoxin 125 MCG TABLET 1 TAB PO Monday HEART (Reported) Divalproex Sodium (Depakote ER) 500 MG TAB.ER.24H 2 TAB PO BID MENTAL HEALTH (Reported) Lactose-Reduced Food (Ensure Liquid) 237 ML LIQUID 1 CAN PO BID NUTRITION ( Reported) Loperamide HCl (Loperamide) 2 MG CAPSULE 2 CAP PO PRN DIARRHEA (Reported) LORazepam (Ativan) 1 MG TAB 1-2 TAB PO AD PRN 1 HR PRIOR TO PROCEDURE ( Reported) MAY REPEAT DOSE IN 1 HR PRN FOR AGITATION Losartan Potassium (Cozaar) 25 MG TABLET 1 TAB PO DAILY HYPERTENSION Magnesium Hydroxide (Milk Of Magnesia) 400 MG/5 ML ORAL.SUSP 30 ML PO QPM 2ND DAY NO BM (Reported) Methylcellulose (Citrucel) 479 GM POWDER 1 TBSP PO BID CONSTIPATION (Reported ) Multivitamin W/Iron, Minerals (Multivitamins With Iron) 1 EACH TAB.CHEW 1 TAB PO DAILY SUPPLEMENT (Reported) Omeprazole 20 MG CAPSULE.DR 2 TAB PO BID GERD Polyethylene Glycol 3350 (Miralax) 17 GRAM POWD.PACK 1 PAC PO QPM 3RD DAY NO BM (Reported) dissolve in water Prednisone 10 MG TABLET 1 TAB PO BID ALLERGIC REACTION Pseudoephedrine HCl (Sudogest) 30 MG TABLET 1 TAB PO Q4H PRN NASAL CONGESTION (Reported) Ranitidine HCl 300 MG CAPSULE 1 CAP PO AT BEDTIME GERD Take 1 tab at bedtime. Sennosides/Docusate Sodium (Senna-Time S Tablet) 8.6 MG-50 MG TABLET 2 TAB PO BID CONSTIPATION (Reported) Stannous Fluoride (Gel-Jayesh) 0.4 % GEL..GRAM. 1 NURA PO BID TEETH (Reported) Vits A and D/White Pet/Lanolin (A and D Ointment) 42.5 GM OINT...G. 1 NURA TOP BID CHAFED SKIN (Reported) MIX WITH CALDESCENE, EQUAL PARTS Zinc Oxide/[place] Starch (Caldesene Baby Powder) (Unknown Strength) POWDER 1 NURA TOP BID PRN MINOR RASH (Reported) Compliance With Home Meds: UNKNOWN Past History Travel History Traveled to [place] past 21 day No Medical History Neurological: MR ARGUELLO: BLIND CHRONIC GINGIVITIS Cardiovascular: CHF, hypertension, LBBB Respiratory: NONE Gastrointestinal: constipation, GERD Hepatic: NONE Renal: NONE Psychiatric: anxiety, psychosis, AUTISM Blood Disorders: anemia History of MRSA: No History of VRE: No History of CDIFF: No Surgical History Surgical History: non-contributory Past Family/Social History Psychosocial History Where do you live? Extended Care Facility Who Do You Live With? [facility] Services at Home: None, [facility] at [facility] ETOH Use: denies use Illicit Drug Use: denies illicit drug use Functional Ability ADLs Needs Assist: dressing, eating, toileting, bathing. Ambulation: Roller Aide IADLs Needs Assist: shopping, housework, finances, food prep, telephone, transportation, medication admin. Review of Systems Review of Systems Constitutional: Reports: see HPI. Exam & Diagnostic Data Last 24 Hrs of Vital Signs/I&O Vital Signs Date Time Temp Pulse Resp B/P B/P Pulse O2 O2 Flow FiO2 Mean Ox Delivery Rate 01/13 09 98.6 90 20 148/75 95 Room Air Intake & Output 01/13 1600 01/13 0800 01/13 0000 Intake Total Output Total Balance Patient 57.606 kg Weight Physical Exam General Appearance Alert, Oriented to time and place, but not to person. HEENT Mucous Membr. moist/pink Cardiovascular Regular Rate, Normal S1, Normal S2 Lungs Clear to Auscultation, Normal Air Movement Abdomen Normal Bowel Sounds, Soft, No Tenderness Neurological Sensation Intact Extremities No Edema Vascular Normal Pulses Last 24 Hrs of Labs/Jean: Laboratory Tests 01/13/18 0942: Anion Gap 4 L, Estimated GFR > 60, BUN/Creatinine Ratio 16.7, Glucose 82, Calcium 9.2, Total Bilirubin 0.4, AST 17, ALT 19 L, Alkaline Phosphatase 48, Troponin I < 0.01, C-Reactive Prot, Quant 1.1 H, Total Protein 6.9, Albumin 3.4 L, Globulin 3.5, Albumin/Globulin Ratio 1.0 L, CBC w Diff MAN DIFF ORDERED, RBC 3.77 L, MCV 93.6, MCH 31.6 H, MCHC 33.7, RDW 14.9 H, MPV 7.8, Gran % 87.1 H, Lymphocytes % 2.7 L, Monocytes % 10.2 H, Eosinophils % 0, Basophils % 0, Absolute Granulocytes 12.0 H, Segmented Neutrophils 83 H, Band Neutrophils 8 H, Absolute Lymphocytes 0.4 L, Lymphocytes 1 L, Monocytes 7, Absolute Monocytes 1.4 H, Eosinophils 1, Absolute Eosinophils 0, Absolute Basophils 0, Anisocytosis 1+, Stomatocytes 1+, Digoxin < 0.4 L 01/13/18 0938: Troponin I Cancelled Microbiology 01/13 1212 BLOOD: Blood Culture - RECD 01/13 1203 BLOOD: Blood Culture - RECD Diagnostic Data EKG Results NSR. Rate 84. QTC 518 CXR Results SERVICE DATE: 01/13/18 EXAM TYPE: RAD - XRY-CHEST XRAY, TWO VIEWS EXAMINATION: XR CHEST CLINICAL INFORMATION: Fever. History of aspiration. Presumptive diagnosis of aspiration pneumonia. COMPARISON: Several prior chest x-rays, most recent of which is dated 11/04/2017. TECHNIQUE: 2 views of the chest were obtained on 3 images. FINDINGS: Evaluation is limited with the patient's chin projecting over the upper chest, obscuring assessment. The cardiomediastinal silhouette is within normal limits in size. Lungs bilaterally are symmetrically expanded. There is improved aeration now seen in the right lung base but persistent patchy opacity is noted, suspicious for recurrent or residual pneumonia. Some reticular opacity in the left lung base is seen, improved from prior study, likely representing atelectatic changes. No significant pleural effusion is seen. No pneumothorax is noted. Abnormal next lytic and sclerotic densities in the right proximal humerus and the glenoid are again noted, slowly progressive over multiple years, most likely representing severe degenerative changes. Mild gaseous distention of bowel loops in the abdomen. IMPRESSION: 1. Recurrent or residual right basilar pneumonia. 2. Left basilar subsegmental atelectasis. DICTATED BY: Rico YANG,Anu Bernal Assessment/Plan Assessment: Mr. Johnson is a 62-year-old legally blind with past medical history of mental retardation, autism, anxiety disorder, atypical psychosis, right hand contracture, anemia, dysphagia, urinary incontinence, retinal detachment, schizophrenia, dilated cardiomyopathy, CHF, mitral valve regurgitation, hypertension who was brought in by aide from [facility] with chief complaints of shivering and beiong febrile up to 102.8 deg F. At the ED temperature was 98.6, pulse 90, respirations 20, blood pressure 148/75 , saturating well at 95% room air. She had an elevated white count of 13.8 with 8 band neutrophils. His H&H was 11.9 and 35.3. Digoxin level 0.4. We will admit him to the general medical service and manage him for the following problems: Aspiration Pneumonia Heart Failure with reduced EF History of Hypertension History of anxiety/atypical psychosis #Aspiration Pneumonia Unasyn 3000 mg Q 6 Continue to follow blood cultures, sputum cultures, urine culture. TRC evaluation. Urine Legionella and pneumococcal antigen. Maintain aspiration precautions. Formal swallow evaluation in the morning. Tylenol if febrile. Lactic Acid x 1 Gentle fluid hydration x 1 Bag. #History of Hypertension Continue losartan 25 mg 1 tablet daily, Continue carvedilol 12.5 mg tablet twice daily. #Heart Failure with reduced EF Last echo in May 2012 showed an EF of 40-45%. Continue digoxin 0.125 mg ,, Continue aspirin 81 mg daily. History of anxiety/atypical psychosis Continue Divalproex 1000 mg BID. Continue Abilify 30 mg Q PM. Continue Klonopin 1 mg 4 times daily. Regular diet formal swallow evaluation to follow. Puree Diet and thin liquids for now. Medications in apple sauce DVT prophylaxis. Patient full code. As Ranked By This Provider Problem List: 1. Aspiration pneumonia Qualifiers Aspiration pneumonia type: unspecified Laterality: right Lung location: unspecified part of lung Qualified Code: J69.0 - Pneumonitis due to inhalation of food and vomit Core Measures/Misc (01/29) Acute Coronary Syndrome ACS Diagnosis: No Congestive Heart Failure Congestive Heart Failure Diagnosis Yes Cerebrovascular Accident CVA/TIA Diagnosis: No VTE (View Protocol) VTE Risk Factors Age>40 No Mechanical VTE Prophylaxis d/t N/A MechProphylax Ordered No VTE Pharm Prophylaxis d/t NA PharmProphylax ordered Sepsis (View protocol) Sepsis Present: Yes If YES complete Sepsis Event Note If YES complete Sepsis Event Note Osei Funez MD 01/13/18 2930: General Information and HPI MD Statement: I have seen and personally examined MATTHEW SKINNER and documented this H&P. The patient is a 62 year old M who presented with a patient stated chief complaint of []. Core Measures/Misc (01/29) VTE (View Protocol) No Mechanical VTE Prophylaxis d/t N/A MechProphylax Ordered No VTE Pharm Prophylaxis d/t Other Sepsis (View protocol) If YES complete Sepsis Event Note If YES complete Sepsis Event Note Attending MD Review Statement Attending Statement Attending MD Statement: examined this patient, discuss w/resident/PA/CONVERSION MAN, agreed w/resident/PA/CONVERSION MAN, reviewed EMR data (avail), discussed with nursing, reviewed images, amended to note, DISCUSSED WITH HALFWAY ASST DIR Attending Assessment/Plan: The patient is a 62 yo male with h/o MR, autism, anxiety/atypical psychosis, blindness, right hand contracture, schizophrenia, dilated cardiomyopathy/CHF, and hTN who [facility] from his [facility] with a fever to 102.8 with chills this morning. He previously had been well. He had a prior [place] admission ( discharged 11/08/17) for presumed aspiration pneumonia. The reference assistant of the [facility] was present on admission. He stated that the patient had no h/o any choking on food or difficulty swallowing. At the time of the last admission he ws treated with IV Unasyn. At the time of my exam, the patient appeared comfortable. He has had no cough as per [facility]. Has had some rhinorrhea. Physical Exam: VS: T 98.6 (102.8 at home), P 90, R 20, BP 148/75, PO 95% RA HEENT: eyes- PERRLA, EOMI mary anne- no lesions Neck: no bruits or adenopathy Chest: clear Cor: RRR nl S1, S2 w/o murm Abd: BS+, soft, NT, -HSM Ext: no significant edema Labs/Tests- as above Impression/Plan: #Aspiration Pneumonia- CXR showing residual or recurrent right basilar infiltrate. Lungs sound good and the fpchome designer does not indicate any choking episodes or cough. May be viral. May have been silent aspiration. Had full evaluation for swallow last admission. Plan: Admit to general medical floor. The patient passed bedside swallow. Espinoza-culture, IV Antibiotics (Clinda given in ED with concern re PCN allergy, however he has had Unasyn on the last admit with no reaction) - will change to Unasyn. Monitor WBC, temp, etc. Diet as usual, however will have speech therapy for formal evaluation in morning. #Dilated Cardiomyopathy- EF 40-45% in 2013 ECHO. Lungs clear. Plan: Continue Digoxin/Carvedilol/ASA. #Mental Retardation- [facility]. Has been stable per oil painter. No significant behavioral issues. Plan: Continue Aripiprazole, Anafranil, Clonazepam, Depakote.
[2018-01-13] MEDS ORDERED: OMEPRAZOLE20 M2 PO (13:03)
[2018-01-13 13:20] VITALS: BP 100/58
--- NOTE | 2018-01-13 17:17 | Admission Certification ---
Admission Certification Certification Statement - As attending physician, I certify that at the time of - admission, based on clinical presentation, severity of - symptoms, need for further diagnostic testing and - therapeutic interventions, and risk of adverse outcomes - without in-hospital treatment, in my clinical assessment, - this patient requires an acute hospital stay for a minimum - of two nights or longer. I have also considered psychsocial - factors such as support system, advanced age, financial - issues, cognitive issues, and failed out-patient treatments, - past re-admission history, safety of patient, and lack of - compliance as applicable. Specific rationale supporting this admission is: The patient presents with probable aspiration pneumonia on CXR and has leukocytosis (13.8) and fever to 102.8. Needs admission to medicine for IV antibiotics, cultures, close respiratory monitoring, swallow evaluation.
[2018-01-13 21:00] VITALS: BP 110/60
[2018-01-14 05:57] VITALS: BP 110/60
[2018-01-14 08:03] LABS: ABSOLUTE BASOPHIL COUNT 0 /CUMM (0.0-0.2); ABSOLUTE EOSINOPHIL COUNT 0 /CUMM (0.0-0.7); ABSOLUTE GRANULOCYTE CT 10.9 /CUMM (1.4-6.5); ABSOLUTE MONOCYTE COUNT 0.5 /CUMM (0.10-0.60); BASOPHIL % 0.2 % (0.0-2.0); EOSINOPHIL % 0 % (0-5); GRANULOCYTE % 81.2 % (42.2-75.2); HEMATOCRIT 31.3 % (42-52); MEAN CORPUSCULAR HGB 31.4 PG (27.0-31.0); MEAN CORPUSCULAR HGB CONC 33.2 G/DL (33.0-37.0); MEAN CORPUSCULAR VOLUME 94.8 FL (80.0-94.0); MEAN PLATELET VOLUME 8.8 FL (7.4-10.4); PLATELET COUNT 164 /CUMM (130-400); RBC DISTRIBUTION WIDTH 14.8 % (11.5-14.5); WHITE BLOOD CELL COUNT 13.4 /CUMM (4.8-10.8)
--- NOTE | 2018-01-14 08:45 | PN- Housestaff ---
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 He is legally blind but able to conversate mildly. Patient denies any acute complaints at this time. He is not requiring any oxygen at this point. Patient afebrile overnight although with continued leukocytosis at this point with blood cultures growing gram positive cocci with report to follow. Patient to have formal swallow eval this morning. Day 2 IV unasyn. Review of Systems Constitutional: Denies: see HPI. Objective Last 24 Hrs of Vital Signs/I&O Vital Signs Date Time Temp Pulse Resp B/P B/P Pulse O2 O2 Flow FiO2 Mean Ox Delivery Rate 01/14 0816 72 110/60 01/14 0815 72 110/60 01/14 0800 98 Room Air 01/14 0557 97.6 72 18 110/60 98 Room Air 01/13 2134 84 110/60 / 2104 Room Air Room Air 01/13 2100 98.1 84 18 110/60 97 Room Air 01/13 1600 Room Air 01/13 1504 99 Room Air 01/13 1320 98.3 85 18 100/58 99 Intake & Output 01/14 1600 01/14 0800 01/14 0000 Intake Total 420 1040 Output Total Balance 420 1040 Intake, IV 300 800 Intake, Oral 120 240 Patient 101 lb Weight Weight Bed scale Measurement Method Physical Exam General Appearance: Alert, Mild Distress, confused Skin: No Rashes, No Breakdown HEENT: EOMI, Mucous Membr. moist/pink Lungs: decreased breath soudns in right lung le; Abdomen: Normal Bowel Sounds, Soft, No Tenderness Extremities: No Clubbing, No Cyanosis, No Edema Current Medications: Current Medications Sig/Rupal Start time Last Medication Dose Route Stop Time Status Admin Acetaminophen 650 MG Q6H PRN 01/13 1315 AC PO Ampicillin Sodium/ 3,000 MG Q6H 01/13 1600 AC 01/14 Sulbactam Sodium IV 0952 Sodium Chloride 100 ML Aripiprazole 30 MG QPM 01/13 2100 AC 01/13 PO 2133 Aspirin 81 MG DAILY 01/14 0900 AC 01/14 PO 0816 Carvedilol 12.5 MG BID 01/13 2100 AC 01/14 PO 0816 Clindamycin 900 MG IQ8 01/13 1600 CAN Dextrose/Water 50 ML IV Clomipramine HCl 75 MG 01/13 AC 01/13 PO 2133 Clomipramine HCl 25 MG 0800,1200,1600 01/13 1600 AC 01/14 PO 0814 Clonazepam 1 MG Q6H 01/13 1315 AC 01/14 PO 01/20 1314 0637 Digoxin 0.125 MG 01/15 0900 AC PO Divalproex Sodium 500 MG BID 01/13 2100 DC PO Divalproex Sodium 1,000 MG BID 01/13 2100 AC 01/14 PO 0814 Enoxaparin Sodium 40 MG DAILY 01/13 1715 AC 01/14 SC 0858 Losartan Potassium 25 MG DAILY 01/14 09 AC 01/14 PO 0815 Multivitamins 1 TAB DAILY 01/14 900 AC 01/14 PO 0815 Senna/Docusate Sodium 2 TAB BID 01/13 2100 AC 01/14 PO 0815 Sodium Chloride 1,000 ML BOLUS ONE 01/13 1445 DC 01/13 IV 01/13 2124 1557 Vitamin A/Vitamin D 1 NURA BID 01/13 2100 AC 01/14 TOP 0859 Zinc Oxide 1 NURA BID PRN 01/13 1300 AC TOP Last 24 Hrs of Lab/Jean Results Last 24 Hrs of Labs/Mics: Laboratory Tests 01/14/18 0625: Anion Gap 5, Estimated GFR > 60, BUN/Creatinine Ratio 17.1, CBC w Diff NO MAN DIFF REQ, RBC 3.30 L, MCV 94.8 H, MCH 31.4 H, MCHC 33.2, RDW 14.8 H, MPV 8.8 , Gran % 81.2 H, Lymphocytes % 15.2 L, Monocytes % 3.4, Eosinophils % 0, Basophils % 0.2, Absolute Granulocytes 10.9 H, Absolute Lymphocytes 2.0, Absolute Monocytes 0.5, Absolute Eosinophils 0, Absolute Basophils 0 01/13/18 1932: Lactic Acid 1.4 Microbiology 01/13 1330 URINE ROUT: Legionella Antigen - COLB 01/13 1330 URINE ROUT: Streptococcus pneumoniae Antigen (M - COLB 01/13 1329 LOWER RESP: Respiratory Culture - COLB 01/13 1329 LOWER RESP: Gram Stain - COLB 01/13 1212 BLOOD: Blood Culture - RECD 01/13 1203 BLOOD: Blood Culture - RES GRAM POSITIVE COCCI Assessment/Plan Assessment: 62 yo male with h/o MR, autism, anxiety/atypical psychosis, blindness, right hand contracture, schizophrenia, dilated cardiomyopathy/CHF, and HTN who presented from his [facility] with a fever to 102.8 with chills this morning. He previously had been well. He had a prior [place] admission (discharged 11/08/17) for presumed aspiration pneumonia. The preschool teacher assistant of the [facility] was present on admission. He stated that the patient had no h/o any choking on food or difficulty swallowing. At the time of the last admission he ws treated with IV Unasyn. CXR showing residual or recurrent right basilar infiltrate 01/14: Patient afebrile but with continuous leukocytosis of 13.4 on IV Unasyn for suspeted aspiration pneumonia. Patient to have swallow eval this morning. Sitter at bedside. PROBLEM LIST: 1. Aspiration PNA 2. 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 Mental Retardation PLAN: * Continue IV antibiotics - given clindamycin in ER sith concern to PCN allergy * Blood colture from 01/13 growing gram positive cocci - might be contaminent, follow full report; f/u legionella antigen, strep pneumo, respirtory culture, gram stain * Monitor for fevers/leukocytosis * Speech therapy for formal swallow evaluation this morning * Continue digoxin/carvedilol/ASA - Note digoxin level on 01/13: 0.4 * Continue apiprazole, anafranil, clonazepam, depakote * Follow up UA Diet: Pending swallow eval Code Status: Full Code DVT PPX: Lovenox Problem List: 1. Pneumonia Pain Ratin Pain Location: denied pain this AM Pain Goal: Remain pain free Pain Plan: as per pain pathway Tomorrow's Labs & Rationales: cbc bep
[2018-01-14 14:12] VITALS: BP 120/64
[2018-01-14 20:00] VITALS: BP 131/44
[2018-01-15 06:00] VITALS: BP 136/75
[2018-01-15 07:47] LABS: ABSOLUTE BASOPHIL COUNT 0 /CUMM (0.0-0.2); ABSOLUTE EOSINOPHIL COUNT 0 /CUMM (0.0-0.7); ABSOLUTE GRANULOCYTE CT 4.9 /CUMM (1.4-6.5); ABSOLUTE LYMPH COUNT 2.1 /CUMM (1.2-3.4); ABSOLUTE MONOCYTE COUNT 0.6 /CUMM (0.10-0.60); BASOPHIL % 0.3 % (0.0-2.0); EOSINOPHIL % 0.1 % (0-5); GRANULOCYTE % 64.7 % (42.2-75.2); HEMATOCRIT 29.3 % (42-52); MEAN CORPUSCULAR HGB 31.6 PG (27.0-31.0); MEAN CORPUSCULAR HGB CONC 33.6 G/DL (33.0-37.0); MEAN CORPUSCULAR VOLUME 94.1 FL (80.0-94.0); MEAN PLATELET VOLUME 8.4 FL (7.4-10.4); PLATELET COUNT 156 /CUMM (130-400); RBC DISTRIBUTION WIDTH 15.2 % (11.5-14.5); RED BLOOD CELL CT 3.12 /CUMM (4.70-6.10); WHITE BLOOD CELL COUNT 7.6 /CUMM (4.8-10.8)
--- NOTE | 2018-01-15 10:06 | PN- Housestaff ---
Quinn Stephen 01/15/18 1006: Subjective Follow-up For: Aspiration PNA Mental retardation Complaints: no complaints Subjective: Patient seen and examined at bedside with the sitter. He denies pain or any other acute issues. He remains afebrile with stable VS and a resolved leukocytosis. He is breathing comfortably on room air. Review of Systems Constitutional: Reports: see HPI. Objective Last 24 Hrs of Vital Signs/I&O Vital Signs Date Time Temp Pulse Resp B/P B/P Pulse O2 O2 Flow FiO2 Mean Ox Delivery Rate 01/15 1333 97.7 82 20 118/72 94 Room Air 01/15 0930 85 122/70 01/15 0930 85 122/70 01/15 0930 85 122/70 01/15 0600 97.4 83 20 136/75 94 Room Air 01/15 2000 99 Room Air 01/15 2000 98.1 87 16 131/44 99 Room Air 01/14 195 87 131/44 Intake & Output 01/15 1600 01/15 0800 01/15 0000 Intake Total 440 720 Output Total Balance 440 720 Intake, IV 200 Intake, Oral 240 720 Number 1 Bowel Movements Patient 106 lb Weight Weight Bed scale Measurement Method Physical Exam General Appearance: Alert, Cooperative, No Acute Distress HEENT: Atraumatic Neck: Supple Cardiovascular: Regular Rate, Normal S1, Normal S2 Lungs: Clear to Auscultation Abdomen: Normal Bowel Sounds, Soft, No Tenderness Current Medications: Current Medications Sig/Rupal Start time Last Medication Dose Route Stop Time Status Admin Acetaminophen 650 MG Q6H PRN 01/13 1315 AC PO Ampicillin Sodium/ 3,000 MG Q6H 01/13 1600 AC 01/15 Sulbactam Sodium IV 0931 Sodium Chloride 100 ML Aripiprazole 30 MG QPM 01/13 2100 AC 01/14 PO 1956 Aspirin 81 MG DAILY 01/14 900 AC 01/15 PO 929 Carvedilol 12.5 MG BID 01/13 2100 AC 01/15 PO 929 Clomipramine HCl 75 MG 01/13 AC 01/14 PO 195 Clomipramine HCl 25 MG 0800,1200,1600 01/13 1600 AC 01/15 PO 133 Clonazepam 1 MG Q6H 01/13 1315 AC 01/15 PO 01/20 1314 1334 Digoxin 0.125 MG 01/15 09 AC 01/15 PO 0930 Divalproex Sodium 1,000 MG BID 01/13 2100 AC 01/15 PO 30 Enoxaparin Sodium 40 MG DAILY 01/13 1715 AC 01/15 SC 30 Losartan Potassium 25 MG DAILY 01/14 900 AC 01/15 PO 0930 Multivitamins 1 TAB DAILY 01/14 900 AC 01/15 PO 0930 Senna/Docusate Sodium 2 TAB BID 01/13 2100 AC 01/15 PO 30 Vitamin A/Vitamin D 1 NURA BID 01/13 2100 AC 01/15 TOP 0930 Zinc Oxide 1 NURA BID PRN 01/13 1300 AC TOP Last 24 Hrs of Lab/Jean Results Last 24 Hrs of Labs/Mics: Laboratory Tests 01/15/18 0610: Anion Gap 8, Estimated GFR > 60, BUN/Creatinine Ratio 6.7 L, CBC w Diff NO MAN DIFF REQ, RBC 3.12 L, MCV 94.1 H, MCH 31.6 H, MCHC 33.6, RDW 15.2 H, MPV 8.4 , Gran % 64.7, Lymphocytes % 27.4, Monocytes % 7.5, Eosinophils % 0.1, Basophils % 0.3, Absolute Granulocytes 4.9, Absolute Lymphocytes 2.1, Absolute Monocytes 0.6, Absolute Eosinophils 0, Absolute Basophils 0 Assessment/Plan Assessment: 62 yo male with h/o MR, autism, anxiety/atypical psychosis, blindness, right hand contracture, schizophrenia, dilated cardiomyopathy/CHF, and HTN who presented from his long-term with a fever of 102.8 with chills to the ED. Of note, prior [place] admission (discharged 11/08/17) for presumed aspiration pneumonia. The college sports assistant of the long-term was present on admission. He stated that the patient had no h/o any choking on food or difficulty swallowing. At the time of the last admission he was treated with IV Unasyn. CXR showing residual or recurrent right basilar infiltrate. He was admitted for the management of the following issues: PROBLEM LIST: 1. Aspiration PNA 2. 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 Mental Retardation PLAN: Continue IV antibiotics - on unasyn day #3. Blood culture from 01/13 growing gram positive cocci - p/b contamination; f/u on full report. Legionella/Strep pneumo ag negative. Clean UA. Trend WBC Speech therapy evaluated: tolerates puree/thin liquids Continue digoxin/carvedilol/ASA - Note digoxin level on 01/13: 0.4 Continue aripiprazole, anafranil, clonazepam, depakote Diet: REG - puree, thin liquids Code Status: Full Code DVT PPX: Lovenox Problem List: 1. Aspiration pneumonia Pain Ratin Pain Location: n/a Pain Goal: Remain pain free Pain Plan: as indicated Tomorrow's Labs & Rationales: . Osei Funez MD 01/15/18 1327: Attending MD Review Statement Attending Statement Attending MD Statement: examined this patient, discuss w/resident/PA/SHOWROOM SALES ASSISTANT, agreed w/resident/PA/SHOWROOM SALES ASSISTANT, discussed with nursing, amended to note Attending Assessment/Plan: The patient was seen and discussed with house staff. Clinically improved. Remains afebrile, WBC normal today. Awaiting BC final report (05/16 grew GPC ? contaminant). Pending blood culture result, may be able to discharge back to long-term tomorrow on po Augmentin Suspension.
[2018-01-15 13:33] VITALS: BP 118/72
--- NOTE | 2018-01-16 06:58 | PN- Housestaff ---
See Addendum Subjective Follow-up For: Aspiration PNA Subjective: Pt seen and examined with sitter at bedside. Afebrile over night no acute events. Breath sounds improved saturating well on room air. Leukocytosis resolved. Will discharge to hospital for behavioral medicine on oral antibiotics for 4 more days. Review of Systems Constitutional: Denies: see HPI. Objective Last 24 Hrs of Vital Signs/I&O Vital Signs Date Time Temp Pulse Resp B/P B/P Pulse O2 O2 Flow FiO2 Mean Ox Delivery Rate 01/16 719 97.6 78 20 121/71 97 Room Air 01/16 0000 Room Air 01/15 2038 90 120/70 01/15 1600 Room Air Room Air Intake & Output 01/16 1600 01/16 0800 01/16 0000 Intake Total 620 680 Output Total Balance 620 680 Intake, IV 140 200 Intake, Oral 480 480 Number 0 Bowel Movements Patient 105 lb Weight Weight Bed scale Measurement Method Physical Exam General Appearance: Alert, Cooperative, Patient histort of mental retardation Skin: No Rashes, No Breakdown HEENT: EOMI, Mucous Membr. moist/pink Cardiovascular: Normal S1, Normal S2 Lungs: Normal Air Movement, decreased breath sounds right sided Abdomen: Normal Bowel Sounds, Soft, No Tenderness Extremities: No Clubbing, No Cyanosis, No Edema Vascular: Normal Pulses, Pulses Symmetrical Current Medications: Current Medications Sig/Rupal Start time Last Medication Dose Route Stop Time Status Admin Acetaminophen 650 MG Q6H PRN 01/13 1315 DCD PO Ampicillin Sodium/ 3,000 MG Q6H 01/13 1600 DCD 01/16 Sulbactam Sodium IV 0940 Sodium Chloride 100 ML Aripiprazole 30 MG QPM 01/13 2100 DCD 01/15 PO 2038 Aspirin 81 MG DAILY 01/14 900 DCD 01/16 PO 0758 Carvedilol 12.5 MG BID 01/13 2100 DCD 01/16 PO 0758 Clomipramine HCl 75 MG 2000 01/14 2000 DCD 01/15 PO 1927 Clomipramine HCl 25 MG 0800,1200,1600 01/13 1600 DCD 01/16 PO 0758 Clonazepam 1 MG Q6H 01/13 1315 DCD 01/16 PO 01/20 1314 0636 Digoxin 0.125 MG 01/15 DCD 01/15 PO 0930 Divalproex Sodium 1,000 MG BID 01/13 2100 DCD 01/16 PO 0758 Enoxaparin Sodium 40 MG DAILY 01/13 1715 DCD 01/16 SC 0800 Losartan Potassium 25 MG DAILY 01/14 900 DCD 01/16 PO 0758 Multivitamins 1 TAB DAILY 01/14 900 DCD 01/16 PO 0759 Senna/Docusate Sodium 2 TAB BID 01/13 2100 DCD 01/16 PO 0758 Vitamin A/Vitamin D 1 NURA BID 01/13 2100 DCD 01/16 TOP 0807 Zinc Oxide 1 NURA BID PRN 01/13 1300 DCD TOP Last 24 Hrs of Lab/Jean Results Last 24 Hrs of Labs/Mics: Laboratory Tests 01/16/18613: CBC w Diff NO MAN DIFF REQ, RBC 3.29 L, MCV 93.9, MCH 31.5 H, MCHC 33.6, RDW 14.5, MPV 8.8, Gran % 56.2, Lymphocytes % 36.7, Monocytes % 6.6, Eosinophils % 0.2, Basophils % 0.3, Absolute Granulocytes 3.0, Absolute Lymphocytes 2.0, Absolute Monocytes 0.4, Absolute Eosinophils 0, Absolute Basophils 0 Assessment/Plan Assessment: 62 yo male with h/o MR, autism, anxiety/atypical psychosis, blindness, right hand contracture, schizophrenia, dilated cardiomyopathy/CHF, and HTN who presented from his hospital for behavioral medicine with a fever of 102.8 with chills to the ED. Of note, prior [place] admission (discharged 11/08/17) for presumed aspiration pneumonia. The corporate administrative assistant of the hospital for behavioral medicine was present on admission. He stated that the patient had no h/o any choking on food or difficulty swallowing. At the time of the last admission he was treated with IV Unasyn. CXR showing residual or recurrent right basilar infiltrate. He was admitted for the management of the following issues: 01/16: DISCHARGE TODAY on PO Augmentin 875 BID for 4 more days. PROBLEM LIST: 1. 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 Mental Retardation PLAN: Continue IV antibiotics - on unasyn day 4 - will discharge on PO Augmentin for 4 more days * Blood culture from 01/13 growing gram positive cocci - p/b contamination; f/u on full report. Legionella/Strep pneumo ag negative. Clean UA. Trend WBC * Speech therapy evaluated: tolerates puree/thin liquids * Continue digoxin/carvedilol/ASA - Note digoxin level on 01/13: 0.4 * Continue aripiprazole, anafranil, clonazepam, depakote Diet: REG - puree, thin liquids Code Status: Full Code DVT PPX: Lovenox Problem List: 1. Aspiration pneumonia Pain Ratin Pain Location: denies pain Pain Goal: Remain pain free Pain Plan: as per pain pathway Tomorrow's Labs & Rationales: discharge
[2018-01-16 07:19] VITALS: BP 121/71
[2018-01-16 08:04] LABS: ABSOLUTE BASOPHIL COUNT 0 /CUMM (0.0-0.2); ABSOLUTE EOSINOPHIL COUNT 0 /CUMM (0.0-0.7); ABSOLUTE MONOCYTE COUNT 0.4 /CUMM (0.10-0.60); BASOPHIL % 0.3 % (0.0-2.0); EOSINOPHIL % 0.2 % (0-5); GRANULOCYTE % 56.2 % (42.2-75.2); HEMATOCRIT 30.9 % (42-52); MEAN CORPUSCULAR HGB 31.5 PG (27.0-31.0); MEAN CORPUSCULAR HGB CONC 33.6 G/DL (33.0-37.0); MEAN CORPUSCULAR VOLUME 93.9 FL (80.0-94.0); MEAN PLATELET VOLUME 8.8 FL (7.4-10.4); PLATELET COUNT 159 /CUMM (130-400); RBC DISTRIBUTION WIDTH 14.5 % (11.5-14.5); RED BLOOD CELL CT 3.29 /CUMM (4.70-6.10); WHITE BLOOD CELL COUNT 5.4 /CUMM (4.8-10.8)
--- NOTE | 2018-01-16 08:37 | Patient Discharge Instructions ---
Discharge Instructions General Discharge Information You were seen/treated for: Aspiration Pneumonia Special Instructions: Please follow up with PCP within 1-2 weeks of discharge. Please continue oral antibiotics accordingly: AUGMENTIN 875 TWICE DAILY WITH FOOD FOR 4 MORE DAYS Acute Coronary Syndrome Inclusion Criteria At DC or during hospital stay patient has or had the following: ACS DIAGNOSIS No Discharge Core Measures Meds if any: Prescribed or Continued at Discharge Meds if any: NOT Prescribed or Continued at Discharge Congestive Heart Failure Inclusion Criteria At DC or during hospital stay patient has or had the following: CHF DIAGNOSIS No Discharge Core Measures Meds if any: Prescribed or Continued at Discharge Meds if any: NOT Prescribed or Continued at Discharge Cerebrovascular accident Inclusion Criteria At DC or during hospital stay patient has or had the following: CVA/TIA Diagnosis No Discharge Core Measures Meds if any: Prescribed or Continued at Discharge Meds if any: NOT Prescribed or Continued at Discharge Venous thromboembolism Inclusion Criteria VTE Diagnosis No VTE Type NONE VTE Confirmed by (Test) NONE Discharge Core Measures - Per Current guidelines, there needs to be overlap - treatment for the first 5 days of Warfarin therapy. - If discharged on Warfarin prior to 5 days of - overlap therapy, the patient will need to be - assessed for post discharge needs including - *Post discharge parental anticoagulation - *Warfarin and/or parental anticoagulation education - *Follow up date to check INR post discharge At least 5 days overlap therapy as Inpatient No Meds if any: Prescribed or Continued at Discharge Note: Overlap Therapy is Warfarin and Anticoagulant Meds if any: NOT Prescribed or Continued at Discharge
[2018-01-16] MEDS ORDERED: AUGMENTIN 875-1 EACH PO (11:51)
--- NOTE | 2018-01-16 15:42 | Discharge Summary ---
Visit Information Visit Dates Admission Date: 01/13/18 Discharge Date: 01/16/18 Hospital Course Course Attending Physician: Osei Funez MD Primary Care Physician: Lam Oglesby MD Hospital Course: HOSPITAL COURSE: Mr. Johnson is a 62-year-old legally blind with past medical history of mental retardation, autism, anxiety disorder, atypical psychosis, right hand contracture, anemia, dysphagia, urinary incontinence, retinal detachment, schizophrenia, dilated cardiomyopathy, CHF, mitral valve regurgitation, hypertension who was brought to the emergency department on 01/13/2018 after it was found the patient was febrile up to 102.8F and shivering when he woke up this am. Prior to coming in, the patient was given some ibuprofen. It was reported that the patient was in his normal state of health prior to his episode morning of admission (no reports of any choking or episodes of cough at the facility). Since being discharged from on 11/08 (where he was treated for aspiration PNA), the patient has been able to participate in activities of daily living, and has had no issues with PO food and liquid intake. Much of the clinical history was obtained from the patient Aide, due to the patients condition. Patient Lives at [facility]. EMERGENCY DEPARTMENT: ED temperature was 98.6, pulse 90, respirations 20, blood pressure 148/75, saturating well at 95% room air. Elevated white count of 13.8 with 8 band neutrophils. His H&H was 11.9 and 35.3. Digoxin level 0.4. EKG Results NSR. Rate 84. QTC 518 CXR Results 1. Recurrent or residual right basilar pneumonia. 2. Left basilar subsegmental atelectasis. GENERAL MEDICINE ADMISSION: Admitted for evaluation, treatment and monitoring of the following: PROBLEM LIST: 1. Aspiration Pneumonia 2. Heart Failure with reduced EF 3. Mental Impairment/Retardation ASPIRATION PNEUMONIA CXR showing residual or recurrent right basilar infiltrate. Lungs sound good and the intermediatemobile home lot utility worker does not indicate any choking episodes or cough. May be viral. May have been silent aspiration. Had full evaluation for swallow last admission. Clinda given in the ED with concern for PCN allergy, with uansyn given on previous admission with no reaction. IV Unasyn was started on patient for his stay. Blood cultures were followed along with sputum and urine cultures. Blood cultures positive for gram postive cocci, although possible contamination. Urine legionella and strep negative. Lactic acid negative times 1. Leukocytosis resolved during patients stay. Sitter was at bedside at all times. Speech and formal swallow eval and patient was on puree/thins as per diet. Patient discharged on PO Augmentin 875 BID for 4 more days to complete his course o fantibiotics accordingly. Dilated Cardiomyopathy- EF 40-45% in 2012 ECHO. Lungs clear. * Continue Digoxin/Carvedilol/ASA. Mental Retardation- fdc resident of intermediate. Has been stable per plastic surgery assistant. No significant behavioral issues. * Continue Aripiprazole, Anafranil, Clonazepam, Depakote. NUTRITION ensure for daily additional nutritional intake -recommend daily weights and recording them at his intermediate Code Status: Full Code DVT PPx: Diet: Puree/thins Allergies: Coded Allergies: Haemophilus B polysaccharide conj w/tetanus toxoid (From TRIHIBIT) (UNKNOWN ) diphtheria toxoid,adsorbed (UNKNOWN 04/01/17) diphtheria,pertussis (acellular),te (From TRIHIBIT) (UNKNOWN 04/01/17) tetanus and diphtheria toxoids (From DECAVAC (PF)) (UNKNOWN 04/01/17) tetanus toxoid, adsorbed (UNKNOWN 04/01/17) Uncoded Allergies: SURE DEODERANT (PER 04/01/17) Disposition Summary Disposition Principal Diagnosis: Aspiration Pneumonia Additional Diagnosis: CHF with reduced EF Discharge Disposition: home health services Discharge Instructions General Discharge Information Code Status: Full Code Patient's Diet: Puree/Thins Patient's Activity: As tolerated with assist Follow-Up Instructions/Appts: Please follow up with PCP within 1 week of discharge. Continue Augmentin antibiotic 875 twice a day with food (crushed) for 4 more days. Return to ED with worsening shortness of breath, fevers, chills, nausea, vomiting. Medications at Discharge Discharge Medications: Stop taking the following medications: Amoxicillin/Potassium Clav (Augmentin 875-125 Tablet) 875 MG-125 MG TABLET ORAL TWICE DAILY Qty = 10 Continue taking these medications: Clomipramine HCl (Anafranil) 25 MG CAPSULE 1 Capsule ORAL THREE TIMES DAILY Comments: Last Taken: 01/16/18 Time: 0800 Aripiprazole (Abilify) 30 MG TABLET 1 Tablet ORAL Every night Comments: Last Taken: 01/15/18 Time: 2000 Digoxin (Digoxin) 125 MCG TABLET 1 Tablet ORAL MONDAY, MONDAY AND MONDAY Comments: Last Taken: 01/15/18 Time:0930 Divalproex Sodium (Depakote ER) 500 MG TAB.ER.24H 2 Tablet ORAL TWICE DAILY Comments: Last Taken:11/08/17 Time:08:30AM Carvedilol (Coreg) 12.5 MG TABLET 1 Tablet ORAL TWICE DAILY Comments: Last Taken:01/16/18 Time:0800 Aspirin (Children's Aspirin) 81 MG TAB.CHEW 1 Tablet ORAL DAILY Comments: Last Taken:01/16/18 Time:0800 Sennosides/Docusate Sodium (Senna-Time S Tablet) 8.6 MG-50 MG TABLET 2 Tablet ORAL TWICE DAILY Comments: Last Taken: 01/16/18 Time: 0800 Methylcellulose (Citrucel) 479 GM POWDER 1 Tablespoonful ORAL TWICE DAILY Comments: NOT GIVEN IN HOSPITAL Multivitamin W/Iron, Minerals (Multivitamins With Iron) 1 EACH TAB.CHEW 1 Tablet ORAL DAILY Comments: Last Taken: 01/16/18 Time: 0800 Stannous Fluoride (Gel-Jayesh) 0.4 % GEL..GRAM. 1 Application ORAL TWICE DAILY Comments: NOT GIVEN IN HOSPITAL Clonazepam (Clonazepam) 1 MG TABLET 1 Tablet ORAL Q6H Comments: Last Taken:01/16/18 Time:0600 [place] Tar (T-Gel) 0.5 % SHAMPOO 1 Application On the skin DAILY Comments: NOT GIVEN IN HOSPITAL Chlorhexidine Gluconate (Periogard) 0.12 % MOUTHWASH 15 Milliliters ORAL TWICE DAILY Comments: NOT GIVEN IN HOSPITAL Zinc Oxide/[place] Starch (Caldesene Baby Powder) (Unknown Strength) POWDER 1 Application On the skin TWICE DAILY as needed for MINOR RASH Comments: NOT GIVEN IN HOSPITAL Carbamide Peroxide (Debrox) 6.5 % DROPS 6 DROP OTIC TWICE DAILY Comments: NOT GIVEN IN HOSPITAL Magnesium Hydroxide (Milk Of Magnesia) 400 MG/5 ML ORAL.SUSP 30 Milliliters ORAL Every night Comments: NOT GIVEN IN HOSPITAL Bisacodyl (Dulcolax) 10 MG SUPP.RECT 1 Suppository RECTAL Every night Comments: NOT GIVEN LORazepam (Ativan) 1 MG TAB 1-2 Tablet ORAL As Directed as needed for 1 HR PRIOR TO PROCEDURE Instructions: MAY REPEAT DOSE IN 1 HR PRN FOR AGITATION Comments: NOT GIVEN IN HOSPITAL Polyethylene Glycol 3350 (Miralax) 17 GRAM POWD.PACK 1 Packet ORAL Every night Instructions: dissolve in water Comments: NOT GIVEN Clotrimazole (Lotrimin AF) 1 % CREAM..G. 1 Application On the skin TWICE DAILY as needed for ITCHING/PEELING/REDDENED AREA Instructions: apply to affected area(s) Comments: NOT GIVEN IN HOSPITAL Loperamide HCl (Loperamide) 2 MG CAPSULE 2 Capsule ORAL as needed for DIARRHEA Comments: NOT GIVEN IN HOSPITAL Pseudoephedrine HCl (Sudogest) 30 MG TABLET 1 Tablet ORAL Q4H as needed for NASAL CONGESTION Comments: NOT GIVEN IN HOSPITAL Vits A and D/White Pet/Lanolin (A and D Ointment) 42.5 GM OINT...G. 1 Application On the skin TWICE DAILY Instructions: MIX WITH CALDESCENE, EQUAL PARTS Comments: NOT GIVEN IN HOSPITAL Bacitracin (Bacitracin) 500 UNIT/GRAM OINT...G. 1 Application On the skin TWICE DAILY as needed for WOUND UNTIL DRY/SCABBED Instructions: apply to affected area(s) Comments: NOT GIVEN IN HOSPITAL Acetaminophen (Acetaminophen) 325 MG TABLET 2 Tablet ORAL Q6H as needed for PAIN/TEMP 100.5-102 Comments: NOT GIVEN IN HOSPITAL Losartan Potassium (Cozaar) 25 MG TABLET 1 Tablet ORAL DAILY Qty = 30 Comments: Last Taken:01/16/18 Time:08:30AM Prednisone (Prednisone) 10 MG TABLET 1 Tablet ORAL TWICE DAILY Qty = 6 Comments: NOT GIVEN IN HOSPITAL Lactose-Reduced Food (Ensure Liquid) 237 ML LIQUID 1 Can ORAL TWICE DAILY Qty = 1 Comments: NOT GIVEN IN HOSPITAL Ranitidine HCl (Ranitidine HCl) 300 MG CAPSULE 1 Capsule ORAL AT BEDTIME Qty = 30 Instructions: Take 1 tab at bedtime. Comments: NOT GIVEN Start taking the following new medications: Amoxicillin/Potassium Clav (Augmentin 875-125 Tablet) 875 MG-125 MG TABLET 1 Tablet ORAL TWICE DAILY Qty = 8 No Refills Comments: NOT GIVEN The following medications have been changed: Old: Omeprazole (Omeprazole) 20 MG CAPSULE.DR 2 Tablet ORAL 1/2 HR BEFORE BREAKFAST/DINNER Qty = 60 New: Omeprazole (Omeprazole) 20 MG CAPSULE.DR 2 Tablet ORAL TWICE DAILY Qty = 60 Comments: NOT GIVEN Copies To: Reny YANG,Lam Reyna
== END 2018-01-16 12:50 | DRG 178 ==
LOC: ERH 09:23 → 2NB 11:47 → ERHI 11:47 → ENRESERV 12:07 → ENTRNSPT 12:55 → 2NB 12:58 → EDTRNSPTSTS 13:04 → EDTRNSPT 13:04 → 2NB 13:15 → CMPTRNSPT 13:26 → ENPENDDIS 01-16 11:55 → ENTRNSPT 01-16 12:31 → EDTRNSPT 01-16 12:48 → EDTRNSPTSTS 01-16 12:48 → 2NB 01-16 12:50 → CMPTRNSPT 01-16 12:58
PROVIDERS: Physical Medicine & Rehabilitation Pain Medicine; Physician Assistant Medical; Student in an Organized Health Care Education/Training Program
DX: J69.0 Pneumonitis due to inhalation of food and vomit (principal); F84.0 Autistic disorder; I42.0 Dilated cardiomyopathy; I50.22 Chronic systolic (congestive) heart failure; H33.20 Serous retinal detachment, unspecified eye; I44.7 Left bundle-branch block, unspecified; F79 Unspecified intellectual disabilities; F20.9 Schizophrenia, unspecified; M24.541 Contracture, right hand; I11.0 Hypertensive heart disease with heart failure; F41.9 Anxiety disorder, unspecified; F28 Other psychotic disorder not due to a substance or known physiological condition; R32 Unspecified urinary incontinence; D64.9 Anemia, unspecified; Z88.8 Allergy status to other drugs, medicaments and biological substances; B96.89 Other specified bacterial agents as the cause of diseases classified elsewhere
CPT/HCPCS: 2NBP; 36592; 71046; 81003; 82436; 87040; 87070; 87449; 87450; 93005; 93010; J1650; J3490